=== PATIENT | female | born 1955 | race Caucasian/White ===

== ENCOUNTER → 2016-08-23 | Outpatient (CLI) | payer BC ==
[2016-08-23 16:30] LABS: CH 27.9; CHCM 33.2; HCT 36.9 % (34.0-46.0); HGB 12.2 gm/dL (11.4-16.0); MCH 27.9 pg (25.0-35.0); MCHC 33.1 g/dL (31.0-37.0); MCV 84.5 fL (80.0-100.0); Mean Platelet Volume 7.6; RBC 4.37 m/uL (3.80-5.40); RDW 13.2 % (11.5-15.5); WBC 8.6 k/uL (3.8-10.6)
[2016-08-23 16:39] LABS: Calcium 9.2 mg/dL (8.4-10.2); Potassium 3.5 mmol/L (3.5-5.1)
== END | disposition home or self-care (01) ==
LOC: LABWHC1 16:08
PROVIDERS: ATTEND Hospitalist
DX: E11.9 Type 2 diabetes mellitus without complications (principal)
CPT/HCPCS: 36415; 80048; 85027

== ENCOUNTER → 2016-09-08 | Outpatient (CLI) | payer BC ==
[2016-09-08 09:58] LABS: CHCM 32.8; HCT 39.3 % (34.0-46.0); HDW 2.56; HGB 12.8 gm/dL (11.4-16.0); MCH 27.9 pg (25.0-35.0); MCHC 32.5 g/dL (31.0-37.0); MCV 85.7 fL (80.0-100.0); Mean Platelet Volume 8.6; RBC 4.59 m/uL (3.80-5.40); RDW 13.6 % (11.5-15.5); WBC 6.7 k/uL (3.8-10.6)
[2016-09-08 10:04] LABS: Appearance,Urine Clear (Clear); Bilirubin,Urine Negative (Negative); Glucose,Urine (UA) Negative (Negative); Ketones,Urine Negative (Negative); Leukocyte Esterase,Urine Large (Negative); Mucus,Urine Rare /hpf; Nitrite,Urine Negative (Negative); Particle Count 3032; Protein,Urine Negative (Negative); RBC,Urine 2 /hpf (0-5); Squamous Epithelial Cell,Urine 5 /hpf (0-4); UA Billing (MACRO vs. MICRO) MICRO; Urobilinogen,Urine <2.0 mg/dL (<2.0); WBC,Urine 6 /hpf (0-5)
[2016-09-08 11:13] LABS: Calcium 9.3 mg/dL (8.4-10.2); Potassium 3.9 mmol/L (3.5-5.1); Uric Acid 3.1 mg/dL (3.7-7.4)
[2016-09-08 11:15] LABS: Creatinine,Urine Random 61.3 mg/dL
[2016-09-10 12:27] LABS: Mis test requested (Non-blood) Random Urine Protein
== END | disposition home or self-care (01) ==
LOC: LABWHC1 08:53
PROVIDERS: ATTEND Nurse Practitioner Family
DX: D64.9 Anemia, unspecified (principal); N39.0 Urinary tract infection, site not specified; R80.9 Proteinuria, unspecified; M10.9 Gout, unspecified; N18.4 Chronic kidney disease, stage 4 (severe)
CPT/HCPCS: 36415; 80048; 81001; 82570; 82728; 83540; 83550; 84156; 84550; 85027

== ENCOUNTER → 2016-10-30 | Outpatient (CLI) | payer BC ==
[2016-10-30 16:50] LABS: Calcium 9.6 mg/dL (8.4-10.2); Potassium 3.6 mmol/L (3.5-5.1); Total Bilirubin 0.5 mg/dL (0.2-1.3); Total Protein 7.1 g/dL (6.3-8.2)
[2016-10-30 22:12] LABS: Hemoglobin A1C 8.1 % (4.2-6.1)
== END ==
LOC: LABWHC1 16:13
PROVIDERS: ATTEND Family Medicine
DX: E11.9 Type 2 diabetes mellitus without complications (principal)
CPT/HCPCS: 36415; 80053; 82043; 83036

== ENCOUNTER → 2017-01-01 | Outpatient (CLI) | payer BC ==
[2017-01-01 15:03] LABS: CH 28.5; CHCM 33.9; HCT 39.7 % (34.0-46.0); HDW 2.57; HGB 13.5 gm/dL (11.4-16.0); MCH 28.8 pg (25.0-35.0); MCHC 34.1 g/dL (31.0-37.0); MCV 84.3 fL (80.0-100.0); Mean Platelet Volume 7.6; RDW 13.2 % (11.5-15.5); WBC 9.1 k/uL (3.8-10.6)
[2017-01-01 15:05] LABS: Appearance,Urine Cloudy (Clear); Bacteria,Urine Rare /hpf; Bilirubin,Urine Negative (Negative); Glucose,Urine (UA) Negative (Negative); Ketones,Urine Negative (Negative); Leukocyte Esterase,Urine Large (Negative); Mucus,Urine Rare /hpf; Nitrite,Urine Negative (Negative); Particle Count 2401; Protein,Urine Negative (Negative); RBC,Urine 1 /hpf (0-5); Specific Gravity,Urine 1.013 (1.001-1.035); Squamous Epithelial Cell,Urine 11 /hpf (0-4); UA Billing (MACRO vs. MICRO) MICRO; Urobilinogen,Urine <2.0 mg/dL (<2.0); WBC,Urine 8 /hpf (0-5)
[2017-01-01 15:13] LABS: Calcium 9.6 mg/dL (8.4-10.2); Potassium 4.1 mmol/L (3.5-5.1); Uric Acid 3.1 mg/dL (3.7-7.4)
[2017-01-01 15:22] LABS: % Iron Saturation 20.5 % (20-50)
[2017-01-01 15:23] LABS: Creatinine,Urine Random 103.8 mg/dL
== END | disposition home or self-care (01) ==
LOC: LABWHC1 14:47
PROVIDERS: ATTEND Nurse Practitioner Family
DX: N18.4 Chronic kidney disease, stage 4 (severe) (principal); D64.9 Anemia, unspecified; N39.0 Urinary tract infection, site not specified; M10.9 Gout, unspecified; R80.9 Proteinuria, unspecified
CPT/HCPCS: 36415; 80048; 81001; 82570; 82728; 83540; 83550; 84156; 84550; 85027

== ENCOUNTER → 2017-01-01 | Outpatient (CLI) | payer BC ==
--- NOTE | 2017-01-02 08:58 | WWHP ---
DATE OF DICTATION: 01/01/17. CHIEF COMPLAINT: The patient is here for her routine gynecologic exam and mammogram. HPI: This is a 61-year-old, G2, P2 with an LMP of 2003. The patient is without gynecologic complaints and denies any postmenopausal bleeding. PAST MEDICAL HISTORY: Type 2 diabetes, Lidia's granulomatosis, chronic hypertension, gastroesophageal reflux disease, and osteopenia. MEDICATIONS: Januvia 100 mg daily. Glyburide 4 mg b.i.d., Amlodipine besylate 5 mg daily. Iron supplement 1 daily, CellCept 500 mg b.i.d. vitamin B daily. ,Calcium with vitamin D 600 mg daily. Vitamin D3 800 units daily. ALLERGIES: No known drug allergies. PAST SURGICAL HISTORY: Colonoscopy 05/04 and this was her third one. Renal biopsy in 2014 and D&C, right ear surgery, tonsillectomy, cardiac catheterization and right arthroscopic knee surgery in the past. 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 FAMILY HISTORY: Both parents have diabetes. Father had an CT and of brain tumor. Mother had angina and renal failure, brother also has renal failure. SOCIAL HISTORY: She denies tobacco, alcohol, and drug use. She has been with her boyfriend since 2003. 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 REVIEW OF SYSTEMS: She has lost about 6 pounds over the last year. She denies respiratory, cardiac, or GI problems. PHYSICAL EXAM: Blood pressure 136/73. Height 5 feet 3 inches. Weight 234 pounds. Temperature 96.3, pulse 75. This is a well-developed, well-nourished white female who is alert and oriented x3 in no acute distress. HEENT is within normal limits. NECK: Supple without mass or thyromegaly. CHEST AND LUNGS: Clear to auscultation. HEART: Regular rate and rhythm. Breasts are without mass or discharge. Axillary exam is negative for adenopathy. BACK: Negative for CVA tenderness. ABDOMEN: Soft, nontender, without palpable masses. PELVIC EXAM: External genitalia reveals mild atrophy without lesions. Cervix and vagina reveal mild atrophy without lesions. There is no evidence of prolapse. The uterus is midposition, nongravid size and nontender. There are no palpable adnexal masses or tenderness. Rectovaginal exam is negative for mass or tenderness and is negative for occult blood. EXTREMITIES: Nontender. IMPRESSION: 1. A 61-year-old menopausal female with normal gynecologic exam. 2. History of osteopenia. 3. Multiple medical problems. PLAN: 1. Pap smear was deferred, since she had a normal one last year. 2. Self-breast examination was discussed. 3. Mammogram will be done today. 4. Osteoporosis prevention was discussed. We will plan on repeating bone density test next year. 5. She will return in one year.
--- NOTE | 2017-01-02 10:00 | MM ---
Reason for exam: screening (asymptomatic). Last mammogram was performed 1 year and 1 month ago. History: Patient is postmenopausal. Attempted Procedure of the left breast, August 28, 2004. Physical Findings: A clinical breast exam by your physician is recommended on an annual basis and results should be correlated with mammographic findings. MG Screening Mammo w CAD Bilateral CC and MLO view(s) were taken. Prior study comparison: November 29, 2015, bilateral MG screening mammo w CAD. October 12, 2014, bilateral MG screening mammo w CAD. October 06, 2013, bilateral digital screening mammo w/CAD. There are scattered fibroglandular densities. There is no discrete abnormality. ASSESSMENT: Negative, BI-RAD 1 RECOMMENDATION: Routine screening mammogram of both breasts in 1 year.
== END ==
LOC: WWCWWP 14:56
PROVIDERS: ATTEND Obstetrics & Gynecology
DX: Z12.31 Encounter for screening mammogram for malignant neoplasm of breast (principal)

== ENCOUNTER → 2017-04-13 | Outpatient (CLI) | payer BC ==
[2017-04-13 07:58] LABS: Basophils % (A) 1 %; CHCM 32.5; Eosinophils # (A) 0.2 k/uL (0-0.7); Eosinophils % (A) 3 %; HCT 38.7 % (34.0-46.0); HGB 13.1 gm/dL (11.4-16.0); Luc # (Auto) 0.33; Luc % (Auto) 4; Lymphocytes % (A) 26 %; MCH 29.1 pg (25.0-35.0); MCHC 33.7 g/dL (31.0-37.0); MCV 86.3 fL (80.0-100.0); Monocytes # (A) 0.4 k/uL (0-1.0); Monocytes % (A) 6 %; Neutrophils # (A) 4.6 k/uL (1.3-7.7); Neutrophils % (A) 61 %; RBC 4.49 m/uL (3.80-5.40); RDW 13.9 % (11.5-15.5); WBC 7.7 k/uL (3.8-10.6); WBC (Perox) 7.75
[2017-04-13 07:59] LABS: Appearance,Urine Clear (Clear); Bilirubin,Urine Negative (Negative); Glucose,Urine (UA) Negative (Negative); Ketones,Urine Negative (Negative); Leukocyte Esterase,Urine Small (Negative); Mucus,Urine Rare /hpf; Nitrite,Urine Negative (Negative); PH, Urine 5.5 (5.0-8.0); Particle Count 1973; Protein,Urine Trace (Negative); RBC,Urine 1 /hpf (0-5); Specific Gravity,Urine 1.016 (1.001-1.035); Squamous Epithelial Cell,Urine 6 /hpf (0-4); UA Billing (MACRO vs. MICRO) MICRO; Urobilinogen,Urine <2.0 mg/dL (<2.0); WBC,Urine 1 /hpf (0-5)
[2017-04-13 08:17] LABS: Calcium 9.5 mg/dL (8.4-10.2); Magnesium 1.6 mg/dL (1.6-2.3); Phosphorous 4.3 mg/dL (2.5-4.5); Potassium 3.8 mmol/L (3.5-5.1); Total Bilirubin 0.6 mg/dL (0.2-1.3); Total Protein 7.5 g/dL (6.3-8.2); Uric Acid 3.1 mg/dL (3.7-7.4)
[2017-04-13 08:25] LABS: % Iron Saturation 25.1 % (20-50)
[2017-04-13 14:47] LABS: Hemoglobin A1C 10.2 % (4.2-6.1)
== END | disposition home or self-care (01) ==
LOC: LABWHC1 07:12
PROVIDERS: ATTEND Internal Medicine Nephrology
DX: N39.0 Urinary tract infection, site not specified (principal); D64.9 Anemia, unspecified; E55.9 Vitamin D deficiency, unspecified; E21.3 Hyperparathyroidism, unspecified; M10.9 Gout, unspecified; N18.3 Chronic kidney disease, stage 3 (moderate); I10 Essential (primary) hypertension
CPT/HCPCS: 36415; 80053; 81001; 82306; 82728; 83036; 83540; 83550; 83735; 83970; 84100; 84550; 85025

== ENCOUNTER → 2017-08-21 | Outpatient (CLI) | payer BC ==
[2017-08-21 16:19] LABS: Basophils # (A) 0.1 k/uL (0-0.2); Basophils % (A) 1 %; Eosinophils # (A) 0.2 k/uL (0-0.7); Eosinophils % (A) 2 %; HCT 40.9 % (34.0-46.0); HGB 13.1 gm/dL (11.4-16.0); Lymphocytes # (A) 3.3 k/uL (1.0-4.8); Lymphocytes % (A) 35 %; MCH 27.5 pg (25.0-35.0); MCHC 31.9 g/dL (31.0-37.0); MCV 86.3 fL (80.0-100.0); Monocytes # (A) 0.4 k/uL (0-1.0); Monocytes % (A) 5 %; Neutrophils # (A) 5.1 k/uL (1.3-7.7); Neutrophils % (A) 54 %; Platelet Count 232 k/uL (150-450); RBC 4.74 m/uL (3.80-5.40); RDW 13.7 % (11.5-15.5); WBC 9.4 k/uL (3.8-10.6)
[2017-08-21 16:36] LABS: Appearance,Urine Clear (Clear); Bilirubin,Urine Negative (Negative); Blood,Urine Trace (Negative); Calcium 9.7 mg/dL (8.4-10.2); Color,Urine Yellow; Glucose,Urine (UA) Negative (Negative); Ketones,Urine Negative (Negative); Leukocyte Esterase,Urine Large (Negative); Magnesium 1.7 mg/dL (1.6-2.3); Mucus,Urine Rare /hpf; Nitrite,Urine Negative (Negative); PH, Urine 5.5 (5.0-8.0); Phosphorus 3.7 mg/dL (2.5-4.5); Potassium 4.1 mmol/L (3.5-5.1); Protein,Urine Negative (Negative); RBC,Urine 5 /hpf (0-5); Specific Gravity,Urine 1.014 (1.001-1.035); Squamous Epithelial Cell,Urine 4 /hpf (0-4); Uric Acid 4.3 mg/dL (3.7-7.4); Urobilinogen,Urine <2.0 mg/dL (<2.0); WBC,Urine 5 /hpf (0-5)
[2017-08-22 01:10] LABS: Iron Saturation 22.78 (12.00-45.00)
[2017-08-22 01:19] LABS: Vitamin D 25 Hydroxy 34.7 ng/mL (30.0-100.0)
== END | disposition home or self-care (01) ==
LOC: LABWHC1 16:03
PROVIDERS: ATTEND Nurse Practitioner Family
DX: N18.3 Chronic kidney disease, stage 3 (moderate) (principal); D64.9 Anemia, unspecified; E55.9 Vitamin D deficiency, unspecified; M10.9 Gout, unspecified; E21.3 Hyperparathyroidism, unspecified; N39.0 Urinary tract infection, site not specified
CPT/HCPCS: 36415; 80048; 81001; 82306; 82728; 83540; 83550; 83735; 83970; 84100; 84550; 85025

== ENCOUNTER → 2017-09-17 | Outpatient (CLI) | payer BC ==
[2017-09-17 08:55] LABS: Appearance,Urine Cloudy (Clear); Bacteria,Urine Rare /hpf; Bilirubin,Urine Negative (Negative); Blood,Urine Trace (Negative); Budding Yeast,Urine Occasional /hpf; Color,Urine Yellow; Glucose,Urine (UA) Negative (Negative); Ketones,Urine Negative (Negative); Leukocyte Esterase,Urine Large (Negative); Mucus,Urine Rare /hpf; Nitrite,Urine Negative (Negative); PH, Urine 5.5 (5.0-8.0); Protein,Urine Negative (Negative); RBC,Urine 16 /hpf (0-5); Specific Gravity,Urine 1.014 (1.001-1.035); Squamous Epithelial Cell,Urine 19 /hpf (0-4); Urobilinogen,Urine <2.0 mg/dL (<2.0); WBC,Urine 17 /hpf (0-5)
[2017-09-17 09:31] LABS: Calcium 9.8 mg/dL (8.4-10.2); Potassium 4.6 mmol/L (3.5-5.1)
== END | disposition home or self-care (01) ==
LOC: LABWHC1 09-11 16:05
PROVIDERS: ATTEND Nurse Practitioner Family
DX: E11.65 Type 2 diabetes mellitus with hyperglycemia (principal); N18.3 Chronic kidney disease, stage 3 (moderate)
CPT/HCPCS: 36415; 80048; 80061; 81001

== ENCOUNTER → 2017-10-19 | Outpatient (CLI) | payer BC ==
[2017-10-19 09:17] LABS: Appearance,Urine Clear (Clear); Bilirubin,Urine Negative (Negative); Blood,Urine Negative (Negative); Color,Urine Light Yellow; Glucose,Urine (UA) Negative (Negative); Ketones,Urine Negative (Negative); Leukocyte Esterase,Urine Negative (Negative); PH, Urine 5.5 (5.0-8.0); Protein,Urine Negative (Negative); Specific Gravity,Urine 1.009 (1.001-1.035); Urobilinogen,Urine <2.0 mg/dL (<2.0)
[2017-10-19 09:20] LABS: Basophils % (A) 1 %; Eosinophils # (A) 0.1 k/uL (0-0.7); Eosinophils % (A) 2 %; Lymphocytes # (A) 1.4 k/uL (1.0-4.8); Lymphocytes % (A) 21 %; MCH 27.6 pg (25.0-35.0); MCHC 31.8 g/dL (31.0-37.0); MCV 86.7 fL (80.0-100.0); Mean Platelet Volume 8.1; Monocytes # (A) 0.4 k/uL (0-1.0); Monocytes % (A) 5 %; Neutrophils # (A) 4.7 k/uL (1.3-7.7); Neutrophils % (A) 69 %; Platelet Count 229 k/uL (150-450); RBC 4.73 m/uL (3.80-5.40); RDW 13.8 % (11.5-15.5); WBC 6.8 k/uL (3.8-10.6)
[2017-10-19 09:35] LABS: Anion Gap 13 mmol/L; Blood Urea Nitrogen 18 mg/dL (7-17); Calcium 9.3 mg/dL (8.4-10.2); Carbon Dioxide 28 mmol/L (22-30); Chloride 100 mmol/L (98-107); Glucose 148 mg/dL (74-99); Phosphorus 3.4 mg/dL (2.5-4.5); Potassium 4.2 mmol/L (3.5-5.1); Sodium 141 mmol/L (137-145); Uric Acid 2.5 mg/dL (3.7-7.4)
[2017-10-19 17:21] LABS: Iron Saturation 22.13 (12.00-45.00)
[2017-10-19 17:29] LABS: Parathyroid Hormone Intact 49.1 pg/mL (14.0-72.0)
== END | disposition home or self-care (01) ==
LOC: LABWHC1 08:03
PROVIDERS: ATTEND Nurse Practitioner Family
DX: N39.0 Urinary tract infection, site not specified (principal); N18.3 Chronic kidney disease, stage 3 (moderate); D63.1 Anemia in chronic kidney disease; E55.9 Vitamin D deficiency, unspecified; E21.3 Hyperparathyroidism, unspecified; M10.9 Gout, unspecified
CPT/HCPCS: 36415; 80048; 81003; 82306; 82728; 83540; 83550; 83735; 83970; 84100; 84550; 85025

== ENCOUNTER → 2018-03-11 | Outpatient (CLI) | payer BC ==
[2018-03-11 16:16] VITALS: BP 128/77; PULSE 64; TEMP 97.9; BMI 39.8
--- NOTE | 2018-03-11 16:51 | P.HPOB ---
History of Present Illness H&P Date: 03/11/18 Chief Complaint: The patient is here for her routine gynecologic exam and mammogram. She has lost 9 pounds over the last year. She denies respiratory, cardiac and G.I. problems. Review of Systems This is a 62-year-old with an LMP of 2003. The patient is without gynecologic complaints and denies any postmenopausal bleeding. She states she and her boyfriend of 14 years may get in the upcoming year. Past Medical History Past Medical History: Diabetes Mellitus (Type II diabetes), GERD/Reflux, Hypertension, Renal Disease Additional Past Medical History / Comment(s): WEGENERS GRANULOMATOSIS, VARICOSE VEINS. Osteopenia. 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 History of Any Multi-Drug Resistant Organisms: None Reported Past Surgical History: Ear Surgery, Heart Catheterization, Orthopedic Surgery, Tonsillectomy Additional Past Surgical History / Comment(s): d+c, colonoscopy 2016 (3rd), bronchoscopy, rt mastoid , Right Knee arthroscopy (06/2015). Past Anesthesia/Blood Transfusion Reactions: Postoperative Nausea & Vomiting ( PONV) Additional Past Anesthesia/Blood Transfusion Reaction / Comment(s): POST-OP HEADACHE X1. Past Psychological History: No Psychological Hx Reported Smoking Status: Never smoker Past Alcohol Use History: None Reported Additional Past Alcohol Use History / Comment(s): started smoking at age 17 quit by age 31. smoked 1ppd. Past Drug Use History: None Reported Additional History: She has been with her boyfriend since 2003. She works at [employer]. - Past Family History Father Family Medical History: Cancer (Brain tumor), Congestive Heart Failure (CHF), Diabetes Mellitus, Myocardial Infarction ([place]) Additional Family Medical History / Comment(s): brain tumor Mother Family Medical History: Congestive Heart Failure (CHF), Coronary Artery Disease (CAD), Diabetes Mellitus, Deep Vein Thrombosis (DVT), Renal Disease Brother(s) Family Medical History: Renal Disease Medications and Allergies Home Medications Medication Instructions Recorded Confirmed Type Calcium Carbonate/Vitamin D3 1 each PO DAILY 09/20/14 09/17/17 History [Calcium 600-Vit D3 400 Tablet] amLODIPine BESYLATE [Norvasc] 5 mg PO DAILY #30 tab 09/28/14 03/11/18 Rx Hydrochlorothiazide [Hydrodiuril] 12.5 tab PO DAILY 10/20/14 03/11/18 History Mycophenolate Mofetil [Cellcept] 1,000 mg PO BID 05/03/16 03/11/18 History Thiamine [Vitamin B-1] 100 mg PO DAILY 05/03/16 03/11/18 History Liraglutide [Victoza 2-Ron] 0.6 mg SQ DAILY 09/17/17 03/11/18 History Atorvastatin [Lipitor] mg PO DAILY 03/11/18 History Losartan [Cozaar] mg PO DAILY 03/11/18 History Repaglinide mg PO TID 03/11/18 History Allergies Allergy/AdvReac Type Severity Reaction Status Date / Time No Known Allergies Allergy Verified 09/17/17 10:30 Exam Vital Signs Temp Pulse BP 03/11/18 16:11 97.9 F 64 128/77 Intake and Output 03/11/18 03/11/18 03/11/18 06:59 14:59 22:59 Other: Weight 102.058 kg Height 5'3", BMI 39.9. This is a well-developed well-nourished heavyset white female who is alert and oriented times 3 in no acute distress. HEENT: Within normal limits. NECK: Supple without mass or thyromegaly. CHEST AND LUNGS: Clear to auscultation. HEART: Regular rate and rhythm. BREASTS: Are without mass or discharge. AXILLARY EXAM: Negative for adenopathy. BACK: Negative for CVA tenderness. ABDOMEN: Soft, obese, nontender, without palpable masses. PELVIC EXAM: Normal external genitalia with mild atrophy. Cervix and vagina appear normal with mild atrophy. There is no unusual discharge. There is no evidence of prolapse. The uterus is midposition, nongravid size and nontender. There are no palpable adnexal masses or tenderness. RECTAL EXAM: rectovaginal exam is negative for mass or tenderness and is negative for occult blood. EXTREMITIES: Nontender. IMPRESSION: 1. 62-year-old menopausal female with normal gynecologic exam. 2. History of osteopenia. 3. Multiple medical problems. PLAN: 1. Pap smear was performed. 2. Self breast awareness was discussed. 3. Screening mammogram will be done today. 4. Osteoporosis prevention was discussed. She is due for a bone density test and an order slip was given to the patient for this. 5. She will return in one year.
--- NOTE | 2018-03-13 09:55 | MM ---
Reason for exam: screening (asymptomatic). Last mammogram was performed 1 year and 2 months ago. History: Patient is postmenopausal. Attempted Procedure of the left breast, August 28, 2004. Physical Findings: A clinical breast exam by your physician is recommended on an annual basis and results should be correlated with mammographic findings. MG Screening Mammo w CAD Bilateral CC and MLO view(s) were taken. Prior study comparison: January 01, 2017, bilateral MG screening mammo w CAD. November 29, 2015, bilateral MG screening mammo w CAD. There are scattered fibroglandular densities. No significant changes when compared with prior studies. ASSESSMENT: Negative, BI-RAD 1 RECOMMENDATION: Routine screening mammogram of both breasts in 1 year.
== END | disposition home or self-care (01) ==
LOC: WWCWWP 15:52
PROVIDERS: ATTEND Obstetrics & Gynecology
DX: Z12.31 Encounter for screening mammogram for malignant neoplasm of breast (principal)
CPT/HCPCS: 77067

== ENCOUNTER → 2018-05-03 | Outpatient (CLI) | payer BC ==
[2018-05-03 09:12] LABS: Basophils % (A) 1 %; Eosinophils # (A) 0.1 k/uL (0-0.7); Eosinophils % (A) 2 %; HCT 40.9 % (34.0-46.0); HGB 12.9 gm/dL (11.4-16.0); Lymphocytes # (A) 1.2 k/uL (1.0-4.8); Lymphocytes % (A) 20 %; MCH 27.8 pg (25.0-35.0); MCHC 31.5 g/dL (31.0-37.0); MCV 88.4 fL (80.0-100.0); Mean Platelet Volume 7.4; Monocytes # (A) 0.5 k/uL (0-1.0); Monocytes % (A) 9 %; Neutrophils % (A) 65 %; Platelet Count 222 k/uL (150-450); RBC 4.63 m/uL (3.80-5.40); RDW 13.4 % (11.5-15.5); WBC 6.1 k/uL (3.8-10.6)
[2018-05-03 09:15] LABS: Calcium 9.3 mg/dL (8.4-10.2); Magnesium 1.9 mg/dL (1.6-2.3); Phosphorus 3.4 mg/dL (2.5-4.5); Potassium 4.3 mmol/L (3.5-5.1); Uric Acid 2.8 mg/dL (3.7-7.4)
[2018-05-03 11:31] LABS: Appearance,Urine Clear (Clear); Bacteria,Urine Rare /hpf; Bilirubin,Urine Negative (Negative); Blood,Urine Negative (Negative); Color,Urine Yellow; Glucose,Urine (UA) Negative (Negative); Ketones,Urine Negative (Negative); Leukocyte Esterase,Urine Trace (Negative); Mucus,Urine Rare /hpf; Nitrite,Urine Negative (Negative); PH, Urine 5.5 (5.0-8.0); Protein,Urine Negative (Negative); RBC,Urine <1 /hpf (0-5); Specific Gravity,Urine 1.017 (1.001-1.035); Squamous Epithelial Cell,Urine 1 /hpf (0-4); Urobilinogen,Urine <2.0 mg/dL (<2.0); WBC,Urine 2 /hpf (0-5)
[2018-05-03 17:15] LABS: Iron Saturation 28.69 (12.00-45.00)
[2018-05-03 17:19] LABS: Parathyroid Hormone Intact 45.1 pg/mL (14.0-72.0)
[2018-05-03 17:23] LABS: Vitamin D 25 Hydroxy 31.6 ng/mL (30.0-100.0)
== END | disposition home or self-care (01) ==
LOC: LABWHC1 08:15
PROVIDERS: ATTEND Internal Medicine Nephrology
DX: N18.3 Chronic kidney disease, stage 3 (moderate) (principal); D63.1 Anemia in chronic kidney disease; E55.9 Vitamin D deficiency, unspecified; N25.81 Secondary hyperparathyroidism of renal origin; M10.9 Gout, unspecified; N39.0 Urinary tract infection, site not specified
CPT/HCPCS: 36415; 80048; 81001; 82306; 82728; 83540; 83550; 83735; 83970; 84100; 84550; 85025

== ENCOUNTER → 2018-10-15 | Outpatient (CLI) | payer BC ==
[~2018-10-15] MED LIST: ACETAMINOPHEN TAB 500 MG TAB PO ONE; RITUXIMAB IV NR; SODIUM CHLORIDE 0.9% 500 ML 500 ML in EMPTY BAG 1 BAG IV PRN; SODIUM CHLORIDE 0.9% IV NR; diphenhydrAMINE 50 MG/ML 1 ML VIAL IVP ONE; methylPREDNISolone SOD SUCCI 125 MG/2 ML VIAL IVP ONE
[2018-10-15 09:03] VITALS: RESP 16; TEMP 97.8
[2018-10-15 11:40] VITALS: BP 116/68; PULSE 64
== END | disposition home or self-care (01) ==
LOC: PROCWHC3 08:41
PROVIDERS: ATTEND Internal Medicine Rheumatology
DX: M31.30 Wegener's granulomatosis without renal involvement (principal)
CPT/HCPCS: 96375; 96413; 96415; J1200; J2930; J9312

== ENCOUNTER → 2018-11-01 | Outpatient (CLI) | payer BC ==
[2018-11-01 09:31] LABS: Basophils % (A) 1 %; Eosinophils # (A) 0.1 k/uL (0-0.7); Eosinophils % (A) 3 %; HCT 38.3 % (34.0-46.0); HGB 12.2 gm/dL (11.4-16.0); Lymphocytes # (A) 1.1 k/uL (1.0-4.8); Lymphocytes % (A) 22 %; MCH 27.7 pg (25.0-35.0); MCHC 31.9 g/dL (31.0-37.0); MCV 86.8 fL (80.0-100.0); Mean Platelet Volume 7.5; Monocytes # (A) 0.4 k/uL (0-1.0); Monocytes % (A) 8 %; Neutrophils # (A) 3.1 k/uL (1.3-7.7); Neutrophils % (A) 63 %; Platelet Count 242 k/uL (150-450); RBC 4.42 m/uL (3.80-5.40); RDW 13.2 % (11.5-15.5); WBC 4.9 k/uL (3.8-10.6)
[2018-11-01 09:42] LABS: Appearance,Urine Clear (Clear); Bilirubin,Urine Negative (Negative); Blood,Urine Negative (Negative); Color,Urine Yellow; Glucose,Urine (UA) Negative (Negative); Ketones,Urine Negative (Negative); Leukocyte Esterase,Urine Negative (Negative); Nitrite,Urine Negative (Negative); PH, Urine 5.5 (5.0-8.0); Protein,Urine Negative (Negative); Specific Gravity,Urine 1.016 (1.001-1.035); Urobilinogen,Urine <2.0 mg/dL (<2.0)
[2018-11-01 16:31] LABS: Iron Saturation 27.54 (12.00-45.00)
[2018-11-01 16:36] LABS: Albumin 4.2 g/dL (3.80-4.90); Albumin/Globulin Ratio 1.91 (1.60-3.17); Anion Gap 7.2 mmol/L (4.00-12.00); Calcium 9.1 mg/dL (8.7-10.3); Carbon Dioxide 28.8 mmol/L (21.6-31.8); Globulin 2.2 g/dL (1.6-3.3); Magnesium 1.6 mg/dL (1.5-2.4); Phosphorus 2.6 mg/dL (2.4-5.1); Potassium 3.6 mmol/L (3.5-5.5); Total Bilirubin 0.6 mg/dL (0.3-1.2); Total Protein 6.4 g/dL (6.2-8.2)
[2018-11-01 16:40] LABS: Vitamin D 25 Hydroxy 43.4 ng/mL (30.0-100.0)
[2018-11-03 09:58] LABS: Total Protein,Urine Random 13.2 mg/dL (0.0-13.5)
== END | disposition home or self-care (01) ==
LOC: LABWHC1 08:49
PROVIDERS: ATTEND Physician Assistant Medical
DX: N39.0 Urinary tract infection, site not specified (principal); E83.39 Other disorders of phosphorus metabolism; N25.81 Secondary hyperparathyroidism of renal origin; I12.9 Hypertensive chronic kidney disease with stage 1 through stage 4 chronic kidney disease, or unspecified chronic kidney disease; D63.1 Anemia in chronic kidney disease; M10.9 Gout, unspecified
CPT/HCPCS: 36415; 80053; 80061; 81003; 82306; 82550; 82570; 82728; 83540; 83550; 83735; 83970; 84100; 84156; 84443; 84550; 85025; 86255

== ENCOUNTER → 2019-05-08 | Outpatient (CLI) | payer BC ==
[2019-05-08 10:12] LABS: HGB 12.4 gm/dL (11.4-16.0); MCH 27.8 pg (25.0-35.0); MCHC 33.4 g/dL (31.0-37.0); MCV 83.4 fL (80.0-100.0); Mean Platelet Volume 8.3; Platelet Count 229 k/uL (150-450); RBC 4.44 m/uL (3.80-5.40); RDW 14.7 % (11.5-15.5); WBC 5.4 k/uL (3.8-10.6)
[2019-05-08 10:13] LABS: Appearance,Urine Clear (Clear); Bilirubin,Urine Negative (Negative); Blood,Urine Negative (Negative); Color,Urine Light Yellow; Glucose,Urine (UA) Negative (Negative); Ketones,Urine Negative (Negative); Leukocyte Esterase,Urine Trace (Negative); Mucus,Urine Rare /hpf; Nitrite,Urine Negative (Negative); Protein,Urine Negative (Negative); RBC,Urine 1 /hpf (0-5); Specific Gravity,Urine 1.014 (1.001-1.035); Squamous Epithelial Cell,Urine 2 /hpf (0-4); Urobilinogen,Urine <2.0 mg/dL (<2.0); WBC,Urine 1 /hpf (0-5)
[2019-05-08 11:26] LABS: Eosinophils # (M) 0.11 k/uL (0-0.7); Lymphocytes # (M) 1.35 k/uL (1.0-4.8); Monocytes # (M) 0.59 k/uL (0-1.0); Neutrophils % (M) 62 %; Nucleated Red Blood Cells 0 /100 WBC (0-0); Total Cells Counted 100
[2019-05-08 17:05] LABS: African American GFR (CKD) 56.1 (60.0-200.0); Albumin/Globulin Ratio 2.11 (1.60-3.17); Anion Gap 7.9 mmol/L (4.00-12.00); BUN/Creat Ratio 15.83 Ratio (12.00-20.00); Calcium 9.4 mg/dL (8.7-10.3); Carbon Dioxide 29.1 mmol/L (21.6-31.8); Globulin 1.9 g/dL (1.6-3.3); Magnesium 1.7 mg/dL (1.5-2.4); Phosphorus 3.4 mg/dL (2.4-5.1); Potassium 4.2 mmol/L (3.5-5.5); Total Bilirubin 0.5 mg/dL (0.3-1.2); Total Protein 5.9 g/dL (6.2-8.2)
[2019-05-08 17:09] LABS: Iron Saturation 31.62 (12.00-45.00)
[2019-05-08 17:17] LABS: Vitamin D 25 Hydroxy 35.7 ng/mL (30.0-100.0)
[2019-05-08 18:01] LABS: Creatinine,Urine Random 69.7 mg/dL
[2019-05-08 18:04] LABS: Total Protein,Urine Random 6.8 mg/dL (0.0-13.5)
[2019-05-12 13:53] LABS: C-ANCA <1:20 Titer (<1:20)
== END | disposition home or self-care (01) ==
LOC: LABWHC1 08:43
PROVIDERS: ATTEND Internal Medicine Endocrinology, Diabetes & Metabolism
DX: M10.9 Gout, unspecified (principal); I77.6 Arteritis, unspecified; R80.9 Proteinuria, unspecified; E55.0 Rickets, active; N25.81 Secondary hyperparathyroidism of renal origin; N39.0 Urinary tract infection, site not specified; D63.1 Anemia in chronic kidney disease; N18.3 Chronic kidney disease, stage 3 (moderate); E11.65 Type 2 diabetes mellitus with hyperglycemia; M31.30 Wegener's granulomatosis without renal involvement
CPT/HCPCS: 36415; 80053; 81001; 82043; 82306; 82570; 82728; 83540; 83550; 83735; 83970; 84100; 84156; 84550; 85025; 86255

== ENCOUNTER → 2019-05-26 | Outpatient (CLI) | payer BC ==
[2019-05-26 16:23] VITALS: BP 131/78; PULSE 69; RESP 16; TEMP 98.3; BMI 40.7
--- NOTE | 2019-05-26 16:58 | P.HPOB ---
History of Present Illness H&P Date: 05/26/19 Chief Complaint: The patient is here for her routine gynecologic exam and ma mmogram. This is a 63-year-old with an LMP of 2003. The patient is without gynecologic complaints. Review of Systems The patient has gained 5 pounds over the last year. She denies respiratory, cardiac, or G.I. problems. Past Medical History Past Medical History: Diabetes Mellitus, GERD/Reflux, Hypertension, Renal Disease Additional Past Medical History / Comment(s): Type 2 diabetes. WEGENERS GRANULOMATOSIS, VARICOSE VEINS. Osteopenia. 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 History of Any Multi-Drug Resistant Organisms: None Reported Past Surgical History: Ear Surgery, Heart Catheterization, Orthopedic Surgery, Tonsillectomy Additional Past Surgical History / Comment(s): d+c, colonoscopy 2016 (), bronchoscopy, rt mastoid , Right Knee arthroscopy (06/2015). Past Anesthesia/Blood Transfusion Reactions: Postoperative Nausea & Vomiting (PONV) Additional Past Anesthesia/Blood Transfusion Reaction / Comment(s): POST-OP HEADACHE X1. Past Psychological History: No Psychological Hx Reported Smoking Status: Former smoker Past Alcohol Use History: None Reported Additional Past Alcohol Use History / Comment(s): started smoking at age 17 quit by age 31. smoked 1ppd. Past Drug Use History: None Reported Additional History: She has been since 2019 and this is her second marriage, and has been with this partner since 2003. She works at [employer]. - Past Family History Brother(s) Family Medical History: Renal Disease Father Family Medical History: Cancer, Congestive Heart Failure (CHF), Diabetes Mellitus, Myocardial Infarction ([place]) Additional Family Medical History / Comment(s): brain tumor Mother Family Medical History: Congestive Heart Failure (CHF), Coronary Artery Disease (CAD), Diabetes Mellitus, Deep Vein Thrombosis (DVT), Renal Disease Medications and Allergies Home Medications Medication Instructions Recorded Confirmed Type Calcium Carbonate/Vitamin D3 1 each PO DAILY 09/20/14 05/26/19 History [Calcium 600-Vit D3 400 Tablet] amLODIPine BESYLATE [Norvasc] 5 mg PO DAILY #30 tab 09/28/14 05/26/19 Rx Hydrochlorothiazide [Hydrodiuril] 12.5 tab PO DAILY 10/20/14 05/26/19 History Mycophenolate Mofetil [Cellcept] 1,000 mg PO BID 05/03/16 05/26/19 History Thiamine [Vitamin B-1] 100 mg PO DAILY 05/03/16 05/26/19 History Liraglutide [Victoza 2-Ron] 0.6 mg SQ DAILY 09/17/17 05/26/19 History Atorvastatin [Lipitor] 10 mg PO DAILY 03/11/18 05/26/19 History Losartan [Cozaar] 25 mg PO DAILY 03/11/18 05/26/19 History Repaglinide 1 mg PO TID 03/11/18 05/26/19 History Allergies Allergy/AdvReac Type Severity Reaction Status Date / Time No Known Allergies Allergy Verified 05/26/19 15:58 Exam Vital Signs Temp Pulse Resp BP Pulse Ox 05/26/19 16:11 98.3 F 69 16 131/78 97 Intake and Output 05/26/19 05/26/19 05/26/19 06:59 14:59 22:59 Other: Weight 104.326 kg Height 5 feet 3 inches, weight 230 pounds, BMI 40.7. This is a well-developed well-nourished heavyset white female who is alert and oriented times 3 in no acute distress. HEENT: Within normal limits. NECK: Supple without mass or thyromegaly. CHEST AND LUNGS: Clear to auscultation. HEART: Regular rate and rhythm. BREASTS: Are without mass or discharge. AXILLARY EXAM: Negative for adenopathy. BACK: Negative for CVA tenderness. ABDOMEN: Soft, obese, nontender, without palpable masses. PELVIC EXAM: Normal external genitalia with mild atrophy. Cervix and vagina appear normal with mild atrophy. There is no unusual discharge. There is no evidence of prolapse. The uterus is midposition, nongravid size and nontender. There are no palpable adnexal masses or tenderness. Bimanual examination is somewhat limited secondary to her size. RECTAL EXAM: Rectovaginal exam is negative for mass or tenderness and is negative for occult blood. EXTREMITIES: Nontender. IMPRESSION: 1. 63-year-old menopausal female with normal gynecologic exam. 2. History of osteopenia. 3. Multiple medical problems. PLAN: 1. Pap smear was deferred since she had a normal one on 03/11/2018. 2. Self breast awareness was discussed with the patient. 3. Screening mammogram will be done today. 4. Osteoporosis prevention was discussed. I have stressed the importance of adequate calcium, vitamin D and regular exercise. Recommended amounts of calcium and vitamin D were also discussed. She is overdue for a bone density test. I have given her an order slip for this. 5. She was advised to return in one year for her annual well woman exam.
--- NOTE | 2019-05-29 10:01 | MM ---
Reason for exam: screening (asymptomatic). Last mammogram was performed 1 year and 2 months ago. History: Patient is postmenopausal. Attempted Procedure of the left breast, August 28, 2004. Physical Findings: A clinical breast exam by your physician is recommended on an annual basis and results should be correlated with mammographic findings. MG Screening Mammo w CAD Bilateral CC and MLO view(s) were taken. Prior study comparison: March 11, 2018, bilateral MG screening mammo w CAD. January 01, 2017, bilateral MG screening mammo w CAD. There are scattered fibroglandular densities. No significant changes when compared with prior studies. ASSESSMENT: Negative, BI-RAD 1 RECOMMENDATION: Routine screening mammogram of both breasts in 1 year.
== END ==
LOC: WWCWWP 15:44
PROVIDERS: ATTEND Obstetrics & Gynecology
DX: Z12.31 Encounter for screening mammogram for malignant neoplasm of breast (principal)
CPT/HCPCS: 77067

== ENCOUNTER → 2019-10-21 | Outpatient (CLI) | payer BC ==
[~2019-10-21] MED LIST changes: +ACETAMINOPHEN TAB 500 MG TAB PO NR; -ACETAMINOPHEN TAB 500 MG TAB PO ONE; +diphenhydrAMINE 50 MG/ML 1 ML VIAL IVP NR; -diphenhydrAMINE 50 MG/ML 1 ML VIAL IVP ONE; +methylPREDNISolone SOD SUCCI 125 MG/2 ML VIAL IV NR; -methylPREDNISolone SOD SUCCI 125 MG/2 ML VIAL IVP ONE
[2019-10-21 08:33] VITALS: RESP 16; TEMP 97.7
[2019-10-21 11:01] VITALS: BP 126/72; PULSE 62
== END | disposition home or self-care (01) ==
LOC: PROCWHC3 08:16
PROVIDERS: ATTEND Internal Medicine Rheumatology
DX: M31.30 Wegener's granulomatosis without renal involvement (principal)
CPT/HCPCS: 96375; 96413; 96415; J1200; J2930; J9312

== ENCOUNTER → 2019-12-14 | Outpatient (CLI) | payer BC ==
[2019-12-14 10:09] LABS: Appearance,Urine Clear (Clear); Bacteria,Urine Rare /hpf; Bilirubin,Urine Negative (Negative); Blood,Urine Negative (Negative); Color,Urine Yellow; Glucose,Urine (UA) Negative (Negative); Ketones,Urine Negative (Negative); Leukocyte Esterase,Urine Small (Negative); Mucus,Urine Rare /hpf; Nitrite,Urine Negative (Negative); PH, Urine 5.5 (5.0-8.0); Protein,Urine Negative (Negative); RBC,Urine 1 /hpf (0-5); Specific Gravity,Urine 1.022 (1.001-1.035); Squamous Epithelial Cell,Urine 5 /hpf (0-4); Urobilinogen,Urine <2.0 mg/dL (<2.0); WBC,Urine 4 /hpf (0-5)
[2019-12-14 10:11] LABS: Protein/Creatinine Ratio,Urine 0.078
[2019-12-14 10:17] LABS: Basophils % (A) 1 %; Eosinophils # (A) 0.1 k/uL (0-0.7); Eosinophils % (A) 2 %; HGB 13.6 gm/dL (11.4-16.0); Lymphocytes # (A) 1.6 k/uL (1.0-4.8); Lymphocytes % (A) 22 %; MCH 29.2 pg (25.0-35.0); MCHC 33.9 g/dL (31.0-37.0); MCV 85.9 fL (80.0-100.0); Mean Platelet Volume 8.9; Monocytes # (A) 0.5 k/uL (0-1.0); Monocytes % (A) 8 %; Neutrophils # (A) 4.6 k/uL (1.3-7.7); Neutrophils % (A) 64 %; Platelet Count 224 k/uL (150-450); RBC 4.66 m/uL (3.80-5.40); RDW 13.2 % (11.5-15.5); WBC 7.1 k/uL (3.8-10.6)
[2019-12-14 15:47] LABS: African American GFR (CKD) 61.9 (60.0-200.0); Anion Gap 9.9 mmol/L (4.00-12.00); BUN/Creat Ratio 22.73 Ratio (12.00-20.00); Calcium 9.4 mg/dL (8.7-10.3); Carbon Dioxide 24.1 mmol/L (21.6-31.8); Non-African American GFR(CKD) 53.4 (60.0-200.0); Potassium 3.7 mmol/L (3.5-5.5)
[2019-12-14 15:48] LABS: % Iron Saturation 23.95 (12.00-45.00)
[2019-12-14 15:54] LABS: Ferritin 147.6 ng/mL (10.0-291.0)
[2019-12-15 14:16] LABS: C-ANCA <1:20 Titer (<1:20)
== END | disposition home or self-care (01) ==
LOC: LABWHC1 08:50
PROVIDERS: ATTEND Nurse Practitioner Family
DX: N18.3 Chronic kidney disease, stage 3 (moderate) (principal); D63.1 Anemia in chronic kidney disease; N39.0 Urinary tract infection, site not specified; I77.6 Arteritis, unspecified; M31.30 Wegener's granulomatosis without renal involvement; R80.9 Proteinuria, unspecified
CPT/HCPCS: 36415; 80048; 81001; 82570; 82728; 83540; 83550; 84156; 85025; 86255

== ENCOUNTER → 2020-04-27 | Outpatient (CLI) | payer BC ==
[~2020-04-27] MED LIST changes: -RITUXIMAB IV NR; +RITUXIMAB PVVR IV NR
[2020-04-27 08:30] VITALS: RESP 16; TEMP 98.2
[2020-04-27 10:17] VITALS: BP 147/63; PULSE 74
== END | disposition home or self-care (01) ==
LOC: PROCWHC3 08:01
PROVIDERS: ATTEND Internal Medicine Rheumatology
DX: M31.30 Wegener's granulomatosis without renal involvement (principal)
CPT/HCPCS: 96375; 96413; 96415; J1200; J2930; Q5119

== ENCOUNTER → 2020-06-24 | Outpatient (CLI) | payer BC ==
[2020-06-24 08:55] LABS: Appearance,Urine Clear (Clear); Bilirubin,Urine Negative (Negative); Blood,Urine Negative (Negative); Color,Urine Light Yellow; Glucose,Urine (UA) 4+ (Negative); Ketones,Urine Negative (Negative); Leukocyte Esterase,Urine Negative (Negative); Nitrite,Urine Negative (Negative); PH, Urine 5.5 (5.0-8.0); Protein,Urine Negative (Negative); Specific Gravity,Urine 1.018 (1.001-1.035); Urobilinogen,Urine <2.0 mg/dL (<2.0)
[2020-06-24 09:35] LABS: Basophils # (A) 0.1 k/uL (0-0.2); Basophils % (A) 1 %; Eosinophils # (A) 0.3 k/uL (0-0.7); Eosinophils % (A) 5 %; HCT 45.7 % (34.0-46.0); HGB 14.7 gm/dL (11.4-16.0); Lymphocytes # (A) 1.4 k/uL (1.0-4.8); Lymphocytes % (A) 22 %; MCHC 32.2 g/dL (31.0-37.0); MCV 86.8 fL (80.0-100.0); Mean Platelet Volume 9.2; Monocytes # (A) 0.5 k/uL (0-1.0); Monocytes % (A) 8 %; Neutrophils # (A) 3.9 k/uL (1.3-7.7); Neutrophils % (A) 60 %; Platelet Count 214 k/uL (150-450); RBC 5.27 m/uL (3.80-5.40); RDW 13.7 % (11.5-15.5); WBC 6.4 k/uL (3.8-10.6)
[2020-06-24 11:37] LABS: Creatinine,Urine Random 71.5 mg/dL; Protein/Creatinine Ratio,Urine 0.154
[2020-06-24 14:43] LABS: % Iron Saturation 19.32 (12.00-45.00); African American GFR (CKD) 46.2 (60.0-200.0); Albumin 4.4 g/dL (3.80-4.90); Anion Gap 7.6 mmol/L (4.00-12.00); BUN/Creat Ratio 16.43 Ratio (12.00-20.00); Calcium 9.8 mg/dL (8.7-10.3); Carbon Dioxide 29.4 mmol/L (21.6-31.8); Non-African American GFR(CKD) 39.9 (60.0-200.0); Phosphorus 3.9 mg/dL (2.4-5.1); Potassium 3.9 mmol/L (3.5-5.5); Uric Acid 3.8 mg/dL (2.9-7.7)
[2020-06-24 14:50] LABS: Ferritin 80.9 ng/mL (10.0-291.0)
== END | disposition home or self-care (01) ==
LOC: LABWHC1 08:00
PROVIDERS: ATTEND Internal Medicine Nephrology
DX: N18.30 Chronic kidney disease, stage 3 unspecified (principal); M31.30 Wegener's granulomatosis without renal involvement
CPT/HCPCS: 36415; 80048; 81003; 82040; 82306; 82570; 82728; 83540; 83550; 83735; 83970; 84100; 84156; 84550; 85025

== ENCOUNTER → 2020-07-26 | Outpatient (CLI) | payer BC ==
[2020-07-26 14:07] VITALS: BP 110/72; PULSE 71; RESP 18; TEMP 98.1
--- NOTE | 2020-07-26 14:59 | P.HPOB ---
History of Present Illness H&P Date: 07/26/20 Chief Complaint: The patient is here for her routine gynecologic exam and ma mmogram. This is a 65-year-old with an LMP of 2004. The patient is without gynecologic complaints and denies any postmenopausal bleeding. Review of Systems The patient's weight has been stable over the last year. She denies respiratory, cardiac, or G.I. problems. Past Medical History Past Medical History: Diabetes Mellitus, GERD/Reflux, Hypertension, Renal Disease Additional Past Medical History / Comment(s): Type 2 diabetes. WEGENERS GRANULOMATOSIS, VARICOSE VEINS. Osteopenia. 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 History of Any Multi-Drug Resistant Organisms: None Reported Past Surgical History: Ear Surgery, Heart Catheterization, Joint Replacement, Orthopedic Surgery, Tonsillectomy Additional Past Surgical History / Comment(s): d+c, colonoscopy 2015 (next after 5yr), bronchoscopy, rt mastoid , Right Knee arthroscopy (06/2015). Total Left Knee Replacement - January 2020 Past Anesthesia/Blood Transfusion Reactions: Postoperative Nausea & Vomiting (PONV) Additional Past Anesthesia/Blood Transfusion Reaction / Comment(s): POST-OP HEADACHE X1. Past Psychological History: No Psychological Hx Reported Smoking Status: Former smoker Past Alcohol Use History: Rare (1 per year) Additional Past Alcohol Use History / Comment(s): started smoking at age 17 quit by age 31. smoked 1ppd. Past Drug Use History: None Reported Additional History: She has been since 2018 and this is her second marriage. They have been together since 2003. She works at [employer]. - Past Family History Brother(s) Family Medical History: Renal Disease Father Family Medical History: Cancer, Congestive Heart Failure (CHF), Diabetes Mellitus, Myocardial Infarction ([place]) Additional Family Medical History / Comment(s): brain tumor Mother Family Medical History: Congestive Heart Failure (CHF), Coronary Artery Disease (CAD), Diabetes Mellitus, Deep Vein Thrombosis (DVT), Renal Disease Medications and Allergies Home Medications Medication Instructions Recorded Confirmed Type Calcium Carbonate/Vitamin D3 1 each PO DAILY 09/20/14 07/26/20 History [Calcium 600-Vit D3 400 Tablet] amLODIPine BESYLATE [Norvasc] 5 mg PO DAILY #30 tab 09/28/14 07/26/20 Rx hydroCHLOROthiazide [Hydrodiuril] 12.5 tab PO DAILY 10/20/14 07/26/20 History Liraglutide [Victoza 2-Ron] 0.6 mg SQ DAILY 09/17/17 07/26/20 History Atorvastatin [Lipitor] 10 mg PO DAILY 03/11/18 07/26/20 History Losartan [Cozaar] 25 mg PO DAILY 03/11/18 07/26/20 History Repaglinide 1 mg PO TID 03/11/18 07/26/20 History Cyanocobalamin (Vitamin B-12) 2,500 mcg PO DAILY 07/26/20 07/26/20 History [Vitamin B-12] Empagliflozin [Jardiance] 25 mg PO DAILY 07/26/20 07/26/20 History Omeprazole 20 mg PO DAILY 07/26/20 07/26/20 History Allergies Allergy/AdvReac Type Severity Reaction Status Date / Time No Known Allergies Allergy Verified 07/26/20 13:56 Exam Vital Signs Temp Pulse Resp BP Pulse Ox 07/26/20 14:00 98.1 F 71 18 110/72 95 Intake and Output 07/25/20 07/26/20 07/26/20 22:59 06:59 14:59 Other: Weight 105.233 kg Height 5 feet 3 inches, weight 232 pounds, BMI 41.1. This is a well-developed well-nourished heavyset white female who is alert and oriented times 3 in no acute distress. HEENT: Within normal limits. NECK: Supple without mass or thyromegaly. CHEST AND LUNGS: Clear to auscultation. HEART: Regular rate and rhythm. BREASTS: Are without mass or discharge. AXILLARY EXAM: Negative for adenopathy. BACK: Negative for CVA tenderness. ABDOMEN: Soft, nontender, without palpable masses. PELVIC EXAM: Normal external genitalia with mild atrophy. Cervix and vagina appear normal mild atrophy. There is no unusual discharge. There is no evidence of prolapse. The uterus is midposition, nongravid size and nontender. There are no palpable adnexal masses or tenderness. Bimanual examination is somewhat limited secondary to her size. RECTAL EXAM: Rectovaginal exam is negative for mass or tenderness and is negative for occult blood. EXTREMITIES: Nontender. IMPRESSION: 1. 65-year-old menopausal female with normal gynecologic exam. 2. History of osteopenia. PLAN: 1. Pap smear cotest was performed. 2. Self breast awareness was discussed with the patient. 3. Screening mammogram will be done today. 4. Osteoporosis prevention was discussed. I have stressed the importance of adequate calcium, vitamin D and regular exercise. Recommended amounts of calcium and vitamin D were also discussed. Bone density test will be done today. 5. She was advised to return in one year for her annual well woman exam.
--- NOTE | 2020-07-26 16:32 | BD ---
EXAMINATION TYPE: Axial Bone Density DATE OF EXAM: 07/26/2020 COMPARISON: NONE CLINICAL HISTORY: Height: 5 FT 3 IN Weight: 232 FRAX RISK QUESTIONS: Alcohol (3 or more units per day): NO Family History (Parent hip fracture): NO Glucocorticoids (More than 3mos): YES (Ex: prednisone, prednisolone, methylprednisolone, dexamethasone, and hydrocortisone). History of Fracture in Adulthood: NO Secondary Osteoporosis: 1. Type 1 Diabetes: NO 2. Hyperthyroidism: NO 3. Menopause before 45: NO 4. Malnutrition: NO 5. Chronic liver disease: NO Rheumatoid Arthritis: NO Current Tobacco Use: NO RISK FACTORS HISTORY OF: Family History of Osteoporosis: NO Active: YES Diet low in dairy products/other sources of calcium: NO Postmenopausal woman: AGE 49 Take estrogen and/or progesterone medications: NONE Lost more than 2 inches in height since high school: NO Poor Health: FAIR MEDICATIONS: Additional Medications: OMEPRAZOLE, VICTOSA, HYDROCHLOROTHIAZIDE, LOSARTAN, REPAAGLINIDE, ATORVASTATI N, JARDIANCE, AMLODIPINE, Additional History: PT GETS AN INFUSION TWICE A YEAR FOR [employer] EXAM MEASUREMENTS: Bone mineral densitometry was performed using the [email or web address] System. Bone mineral density as measured about the Lumbar spine is: ----- L1-L4(G/cm2): 1.168 T Score Values are as follows: ----- L2: -0.3 ----- L3: 0.3 ----- L4: -0.1 ----- L1-L4: -0.1 Bone mineral density has: INCREASED 4.5 % since study of: 2014 Bone mineral density about the R hip (g/cm2): 0.884 Bone mineral density about the L hip (g/cm2): 0.883 T Score values are as follows: -----R Neck: -1.1 -----L Neck: -1.1 -----R Total: -0.1 -----L Total: -0.2 Bone mineral density has: DECREASED -6.9 % since study of: 2014 IMPRESSION: Osteopenia (T Score between -2.5 and -1). There is slightly increased risk of fracture and the patient may be considered for treatment. Re-Screen 2-5 years. NOTE: T-SCORE=SD OF THE YOUNG ADULT MEAN.
--- NOTE | 2020-07-27 13:50 | MM ---
Reason for exam: screening (asymptomatic). Last mammogram was performed 1 year and 2 months ago. History: Patient is postmenopausal. Attempted Procedure of the left breast, August 28, 2004. Physical Findings: A clinical breast exam by your physician is recommended on an annual basis and results should be correlated with mammographic findings. MG Screening Mammo w CAD Bilateral CC and MLO view(s) were taken. Prior study comparison: May 26, 2019, bilateral MG screening mammo w CAD. March 11, 2018, bilateral MG screening mammo w CAD. There are scattered fibroglandular densities. No significant changes when compared with prior studies. ASSESSMENT: Benign, BI-RAD 2 RECOMMENDATION: Routine screening mammogram of both breasts in 1 year.
--- NOTE | 2020-08-02 10:51 | P.PN ---
Progress Note - Text Progress Note Date: 08/02/20 OUTPATIENT FOLLOW-UP NOTE TEST(S)/RESULTS: Test results from 07/26/2020 include negative Pap smear cotest, benign mammogram, and bone density testing showing osteopenia. METHOD OF NOTIFICATION: A message with these results was left on the patient's voicemail. PATIENT COMMENTS: DIAGNOSIS: Negative Pap smear cotest, benign mammogram and osteopenia. DISCUSSION: I have stressed the importance of getting adequate calcium, vitamin D and regular exercise. PLAN: She was advised to return in one year for her annual well woman exam. Repeat bone density testing in 2-3 years.
== END | disposition home or self-care (01) ==
LOC: WWCWWP 13:42
PROVIDERS: ATTEND Obstetrics & Gynecology
DX: Z12.31 Encounter for screening mammogram for malignant neoplasm of breast (principal); M85.80 Other specified disorders of bone density and structure, unspecified site; Z78.0 Asymptomatic menopausal state
CPT/HCPCS: 77067; 77080

== ENCOUNTER 2020-09-06 12:35 | Inpatient (IN) | payer BC ==
[2020-09-06] MEDS ORDERED: ACETAMINOPHEN TAB 500 MG TAB PO STA (13:20)
[2020-09-06] MEDS ORDERED: IBUPROFEN 600 MG TAB PO STA (13:20)
--- NOTE | 2020-09-06 13:27 | ED ---
General Adult HPI - General Chief complaint: Recheck/Abnormal Lab/Rx Stated complaint: SOB, fatigue, fever Time Seen by Provider: 09/06/20 12:40 Source: patient, RN notes reviewed, old records reviewed Mode of arrival: ambulatory Limitations: no limitations - History of Present Illness Initial comments: This is a 65-year-old female presents emergency Department stating she has Lidia's granulomatosis and has had a fever for 2 weeks. Patient states h ighest fever she hadn't was 102 and that occurred on Saturday. Patient states she has a very slight cough occasionally. Patient denies any difficulty breathing shortness of breath or chest pain. Patient states she's been very nauseated but hasn't vomited she does not eat a lot because she just doesn't feel hungry. Patient denies any abdominal pain patient denies any back pain. Patient does states she has some dysuria and urinary frequency. Patient is trying to keep hydrated. Patient denies any headache patient denies numbness weakness. Patient denies any lightheadedness or dizziness. Patient denies any lesions or rashes. - Related Data Home Medications Medication Instructions Recorded Confirmed hydroCHLOROthiazide [Hydrodiuril] 12.5 mg PO DAILY 10/20/14 09/06/20 Liraglutide [Victoza 2-Ron] 1.8 mg SQ HS 09/17/17 09/06/20 Atorvastatin [Lipitor] 10 mg PO DAILY 03/11/18 09/06/20 Losartan [Cozaar] 25 mg PO HS 03/11/18 09/06/20 Cyanocobalamin (Vitamin B-12) 2,500 mcg PO DAILY 07/26/20 09/06/20 [Vitamin B-12] Empagliflozin [Jardiance] 25 mg PO DAILY 07/26/20 09/06/20 Omeprazole 20 mg PO DAILY 07/26/20 09/06/20 Calcium Carbonate [Calcium] 1,200 mg PO MOWEFR 09/06/20 09/06/20 Repaglinide [Prandin] 1 mg PO DAILY 09/06/20 09/06/20 Repaglinide [Prandin] 1.5 mg PO HS 09/06/20 09/06/20 Vitamin D3(Unknown Dose) 1 tab PO DAILY 09/06/20 09/06/20 Previous Rx's Medication Instructions Recorded amLODIPine BESYLATE [Norvasc] 5 mg PO DAILY #30 tab 09/28/14 Allergies Allergy/AdvReac Type Severity Reaction Status Date / Time No Known Allergies Allergy Verified 09/06/20 13:39 Review of Systems ROS Statement: Those systems with pertinent positive or pertinent negative responses have been documented in the HPI. ROS Other: All systems not noted in ROS Statement are negative. Past Medical History Past Medical History: Diabetes Mellitus, GERD/Reflux, Hypertension, Renal Disease Additional Past Medical History / Comment(s): Type 2 diabetes. WEGENERS GRANULOMATOSIS, VARICOSE VEINS. Osteopenia. 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 History of Any Multi-Drug Resistant Organisms: None Reported Past Surgical History: Ear Surgery, Heart Catheterization, Joint Replacement, Orthopedic Surgery, Tonsillectomy Additional Past Surgical History / Comment(s): d+c, colonoscopy 2015 (next after 5yr), bronchoscopy, rt mastoid , Right Knee arthroscopy (06/2015). Total Left Knee Replacement - January 2020 Past Anesthesia/Blood Transfusion Reactions: Postoperative Nausea & Vomiting (PONV) Additional Past Anesthesia/Blood Transfusion Reaction / Comment(s): POST-OP HEADACHE X1. Past Psychological History: No Psychological Hx Reported Smoking Status: Former smoker Past Alcohol Use History: None Reported Past Drug Use History: None Reported - Past Family History Brother(s) Family Medical History: Renal Disease Father Family Medical History: Cancer, Congestive Heart Failure (CHF), Diabetes Mellitus, Myocardial Infarction ([place]) Additional Family Medical History / Comment(s): brain tumor Mother Family Medical History: Congestive Heart Failure (CHF), Coronary Artery Disease (CAD), Diabetes Mellitus, Deep Vein Thrombosis (DVT), Renal Disease General Exam - General Exam Comments Initial Comments: GENERAL: Patient is well-developed and well-nourished. Patient is nontoxic and well-hy drated and is in mild distress. ENT: Neck is soft and supple. No significant lymphadenopathy is noted. Oropharynx is clear. Moist mucous membranes. Neck has full range of motion without eliciting any pain. EYES: The sclera were anicteric and conjunctiva were pink and moist. Extraocular move ments were intact and pupils were equal round and reactive to light. Eyelids were unremarkable. PULMONARY: Unlabored respirations. Good breath sounds bilaterally. No audible rales rhonchi or wheezing was noted. CARDIOVASCULAR: There is a regular rate and rhythm without any murmurs gallops or rubs. ABDOMEN: Soft and nontender with normal bowel sounds. No palpable organomegaly was noted. There is no palpable pulsatile mass. SKIN: Skin is clear with no lesions or rashes and otherwise unremarkable. NEUROLOGIC: Patient is alert and oriented x3. Cranial nerves II through XII are grossly intact. Motor and sensory are also intact. Normal speech, volume and content. Symmetrical smile. Cerebellar exam grossly intact. MUSCULOSKELETAL: Normal extremities with adequate strength and full range of motion. No lower extremity swelling or edema. No calf tenderness. LYMPHATICS: No significant lymphadenopathy is noted PSYCHIATRIC: Normal psychiatric evaluation. Limitations: no limitations Course Vital Signs 09/06/20 09/06/20 09/06/20 12:40 13:21 15:30 Temperature 99.8 F H 101.7 F H 101.8 F H Pulse Rate 82 73 Respiratory 18 18 Rate Blood Pressure 151/79 108/73 O2 Sat by Pulse 97 96 Oximetry Medical Decision Making - Medical Decision Making Patient's ideal body weight is 52.2 kg EKG shows normal sinus rhythm at 79 bpm NH interval 176 dresses 86 QT interval 366 QTC is 419. Patient's EKG shows no ST segment elevation or depression. X-ray shows right lower lobe pneumonia. I'm going to admit the patient because she's had 2 weeks of fever and this is not consistent with the level of pneumonia that I see. I spoke with Dr. James and his nurse practitioner she was in agreement I admitted the patient wrote admitting orders. - Lab Data Result diagrams: 09/06/20 14:04 09/06/20 14:04 Lab Results 09/06/20 09/06/20 09/06/20 Range/Units 14:04 14:04 14:04 WBC 6.1 (3.8-10.6) k/uL RBC 5.23 (3.80-5.40) m/uL Hgb 14.3 (11.4-16.0) gm/dL Hct 42.4 (34.0-46.0) % MCV 81.1 (80.0-100.0) fL MCH 27.3 (25.0-35.0) pg MCHC 33.7 (31.0-37.0) g/dL RDW 13.5 (11.5-15.5) % Plt Count 242 (150-450) k/uL MPV 8.5 Neutrophils % 70 % Lymphocytes % 17 % Monocytes % 9 % Eosinophils % 0 % Basophils % 1 % Neutrophils # 4.3 (1.3-7.7) k/uL Lymphocytes # 1.0 (1.0-4.8) k/uL Monocytes # 0.5 (0-1.0) k/uL Eosinophils # 0.0 (0-0.7) k/uL Basophils # 0.1 (0-0.2) k/uL PT 11.0 (9.0-12.0) sec INR 1.0 (<1.2) APTT 22.7 (22.0-30.0) sec Sodium 136 L (137-145) mmol/L Potassium 3.3 L (3.5-5.1) mmol/L Chloride 97 L (98-107) mmol/L Carbon Dioxide 28 (22-30) mmol/L Anion Gap 11 mmol/L BUN 15 (7-17) mg/dL Creatinine 1.31 H (0.52-1.04) mg/dL Est GFR (CKD-EPI)AfAm 50 (>60 ml/min/1.73 sqM) Est GFR (CKD-EPI)NonAf 43 (>60 ml/min/1.73 sqM) Glucose 86 (74-99) mg/dL Plasma Lactic Acid Anand (0.7-2.0) mmol/L Calcium 9.6 (8.4-10.2) mg/dL Total Bilirubin 0.8 (0.2-1.3) mg/dL AST 28 (14-36) U/L ALT 18 (4-34) U/L Alkaline Phosphatase 94 (38-126) U/L Total Protein 7.5 (6.3-8.2) g/dL Albumin 4.3 (3.5-5.0) g/dL Urine Color Urine Appearance (Clear) Urine pH (5.0-8.0) Ur Specific [place] (1.001-1.035) Urine Protein (Negative) Urine Glucose (UA) (Negative) Urine Ketones (Negative) Urine Blood (Negative) Urine Nitrite (Negative) Urine Bilirubin (Negative) Urine Urobilinogen (<2.0) mg/dL Ur Leukocyte Esterase (Negative) Influenza Type A (PCR) (Not Detectd) Influenza Type B (PCR) (Not Detectd) RSV (PCR) (Not Detectd) SARS-CoV-2 (PCR) (Not Detectd) 09/06/20 09/06/20 09/06/20 Range/Units 14:04 14:04 16:17 WBC (3.8-10.6) k/uL RBC (3.80-5.40) m/uL Hgb (11.4-16.0) gm/dL Hct (34.0-46.0) % MCV (80.0-100.0) fL MCH (25.0-35.0) pg MCHC (31.0-37.0) g/dL RDW (11.5-15.5) % Plt Count (150-450) k/uL MPV Neutrophils % % Lymphocytes % % Monocytes % % Eosinophils % % Basophils % % Neutrophils # (1.3-7.7) k/uL Lymphocytes # (1.0-4.8) k/uL Monocytes # (0-1.0) k/uL Eosinophils # (0-0.7) k/uL Basophils # (0-0.2) k/uL PT (9.0-12.0) sec INR (<1.2) APTT (22.0-30.0) sec Sodium (137-145) mmol/L Potassium (3.5-5.1) mmol/L Chloride (98-107) mmol/L Carbon Dioxide (22-30) mmol/L Anion Gap mmol/L BUN (7-17) mg/dL Creatinine (0.52-1.04) mg/dL Est GFR (CKD-EPI)AfAm (>60 ml/min/1.73 sqM) Est GFR (CKD-EPI)NonAf (>60 ml/min/1.73 sqM) Glucose (74-99) mg/dL Plasma Lactic Acid Anand 1.7 (0.7-2.0) mmol/L Calcium (8.4-10.2) mg/dL Total Bilirubin (0.2-1.3) mg/dL AST (14-36) U/L ALT (4-34) U/L Alkaline Phosphatase (38-126) U/L Total Protein (6.3-8.2) g/dL Albumin (3.5-5.0) g/dL Urine Color Yellow Urine Appearance Clear (Clear) Urine pH 5.5 (5.0-8.0) Ur Specific [place] 1.015 (1.001-1.035) Urine Protein Trace H (Negative) Urine Glucose (UA) 4+ H (Negative) Urine Ketones Negative (Negative) Urine Blood Negative (Negative) Urine Nitrite Negative (Negative) Urine Bilirubin Negative (Negative) Urine Urobilinogen <2.0 (<2.0) mg/dL Ur Leukocyte Esterase Negative (Negative) Influenza Type A (PCR) Not Detected (Not Detectd) Influenza Type B (PCR) Not Detected (Not Detectd) RSV (PCR) Not Detected (Not Detectd) SARS-CoV-2 (PCR) Not Detected (Not Detectd) Disposition Clinical Impression: Pneumonia Disposition: ADMITTED IP TO THIS HOSP Referrals: Rex Viramontes DO [Primary Care Provider] - 1-2 days Time of Disposition: 16:42
[2020-09-06 14:15] LABS: Basophils # (A) 0.1 k/uL (0-0.2); Basophils % (A) 1 %; Eosinophils % (A) 0 %; HCT 42.4 % (34.0-46.0); HGB 14.3 gm/dL (11.4-16.0); Lymphocytes % (A) 17 %; MCH 27.3 pg (25.0-35.0); MCHC 33.7 g/dL (31.0-37.0); MCV 81.1 fL (80.0-100.0); Mean Platelet Volume 8.5; Monocytes # (A) 0.5 k/uL (0-1.0); Monocytes % (A) 9 %; Neutrophils # (A) 4.3 k/uL (1.3-7.7); Neutrophils % (A) 70 %; Platelet Count 242 k/uL (150-450); RBC 5.23 m/uL (3.80-5.40); RDW 13.5 % (11.5-15.5); WBC 6.1 k/uL (3.8-10.6)
[2020-09-06 14:24] LABS: Partial Thromboplastin Time 22.7 sec (22.0-30.0)
[2020-09-06 14:25] LABS: Albumin 4.3 g/dL (3.5-5.0); Calcium 9.6 mg/dL (8.4-10.2); Potassium 3.3 mmol/L (3.5-5.1); Total Bilirubin 0.8 mg/dL (0.2-1.3); Total Protein 7.5 g/dL (6.3-8.2)
[2020-09-06] MEDS: SODIUM CHLORIDE 0.9% 500 ML 500 ML IV SCH ×3 (14:28→16:12)
--- NOTE | 2020-09-06 14:57 | XR ---
EXAMINATION TYPE: XR chest 2V DATE OF EXAM: 09/06/2020 COMPARISON: 09/20/2014 TECHNIQUE: PA and lateral views submitted. HISTORY: Fever FINDINGS: Patchy subsegmental area of density in the right lower lobe. Coarsened interstitium may be chronic. A rthropathy of the shoulders with no pneumothorax. Heart size normal. No overt failure or pleural effu lili. Degenerative change of the spine. IMPRESSION: 1. Patchy right lower lobe and infrahilar area of infiltrate. Follow to resolution.
[2020-09-06 16:21] LABS: Appearance,Urine Clear (Clear); Bilirubin,Urine Negative (Negative); Blood,Urine Negative (Negative); Color,Urine Yellow; Glucose,Urine (UA) 4+ (Negative); Ketones,Urine Negative (Negative); Leukocyte Esterase,Urine Negative (Negative); Nitrite,Urine Negative (Negative); PH, Urine 5.5 (5.0-8.0); Protein,Urine Trace (Negative); Specific Gravity,Urine 1.015 (1.001-1.035); Urobilinogen,Urine <2.0 mg/dL (<2.0)
[2020-09-06] MEDS ORDERED: AZITHROMYCIN 500 MG in SODIUM CHLORIDE 0.9% 250 ML IVPB STA (16:42)
[2020-09-06] MEDS ORDERED: PNEUMONIA PROTOCOL UTILIZED 1 EACH MISC PO PRN (16:42)
[2020-09-06] MEDS ORDERED: cefTRIAXone IN SWFI 1,000 MG/10 ML SYRINGE IVP STA (16:46)
[2020-09-06 21:14] LABS: Glucose,Whole Blood 144 mg/dL (75-99)
[2020-09-06] MEDS: REPAGLINIDE 1 MG TAB PO SCH (21:24)
[2020-09-06] MEDS: INSULIN ASPART (NovoLOG) 100 UNIT/ML VIAL SQ SCH (21:24)
[2020-09-07 06:54] LABS: Glucose,Whole Blood 94 mg/dL (75-99)
[2020-09-07] MEDS: INSULIN ASPART (NovoLOG) 100 UNIT/ML VIAL SQ SCH ×4 (07:07→20:36)
[2020-09-07] MEDS: ACETAMINOPHEN TAB 325 MG TAB PO PRN ×3 (08:26→22:14)
--- NOTE | 2020-09-07 10:05 | XR ---
EXAMINATION TYPE: XR chest 2V DATE OF EXAM: 09/07/2020 COMPARISON: Chest x-ray 09/06/2020 HISTORY: Pneumonia TECHNIQUE: Frontal and lateral views of the chest are obtained. FINDINGS: Patchy density appears more conspicuous in the right lung base. No evident pneumothorax or pleural effusion. Cardiac mediastinal silhouette is stable. Some minimal patchy left-sided density i s questioned. IMPRESSION: Correlate for pneumonia, follow-up suggested
[2020-09-07 11:01] LABS: Potassium 3.2 mmol/L (3.5-5.1)
[2020-09-07] MEDS ORDERED: Potassium Replacement Protocol 1 EACH MISC MISCELLANE PRN (11:14)
[2020-09-07] MEDS ORDERED: hydroCHLOROthiazide 12.5 MG CAP PO SCH (11:15)
[2020-09-07 11:33] LABS: African American GFR (CKD) 60 (>60 ml/min/1.73 sqM); Anion Gap 7 mmol/L; Blood Urea Nitrogen 15 mg/dL (7-17); Calcium 8.5 mg/dL (8.4-10.2); Carbon Dioxide 23 mmol/L (22-30); Chloride 104 mmol/L (98-107); Glucose 159 mg/dL (74-99); Non-African American GFR(CKD) 52 (>60 ml/min/1.73 sqM); Sodium 134 mmol/L (137-145)
[2020-09-07 11:38] LABS: Glucose,Whole Blood 126 mg/dL (75-99)
[2020-09-07] MEDS: POTASSIUM CHLORIDE 10 MEQ in WATER FOR INJECTION 1 100ML.BAG IVPB SCH ×4 (11:50→15:32)
[2020-09-07] MEDS: CYANOCOBALAMIN 500 MCG TAB PO SCH (12:07)
[2020-09-07] MEDS: CHOLECALCIFEROL 25 MCG (1000 IU) TABLET PO SCH (12:07)
[2020-09-07] MEDS: CALCIUM CARB-VIT D 500 MG-5 MCG TAB PO SCH (12:08)
[2020-09-07] MEDS: amLODIPine 5 MG TAB PO SCH (12:08)
[2020-09-07] MEDS: ATORVASTATIN 10 MG TAB PO SCH (12:08)
[2020-09-07 16:32] LABS: Glucose,Whole Blood 146 mg/dL (75-99)
[2020-09-07] MEDS: AZITHROMYCIN 500 MG TAB PO SCH (16:35)
[2020-09-07 19:44] LABS: Glucose,Whole Blood 206 mg/dL (75-99)
[2020-09-07 20:13] LABS: C Reactive Protein 63.9 mg/L (<10.0); Potassium 3.6 mmol/L (3.5-5.1)
--- NOTE | 2020-09-07 20:47 | P.HPIM ---
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 Viramontes, also she follows up with Dr. Girard for kidney disease Patient presents because of persistent fever for 2 weeks. Patient states 2 weeks ago she started running fever and she went to urgent care we checked her culprit twice and it was not detected then follow up with her PCP which is therefore influenza and it was negative as well. And he asked her to take some antipyretic and go back to work at work they advised him to go to the hospital. She feels little short of breath especially with walking with little cough. No chest pain. She has diarrhea like one set today which was loose compared to yesterday she did not have bowel movement she denies smoking, alcohol or illicit drugs. Patient is febrile at 103, she is saturating 95% on room air. CBC is unremarkable. INR is normal. BMP showed elevated creatinine 1.3, down to 1.1, sugar is controlled, liver enzymes not elevated, potassium 3.2, sodium is 134. Urinalysis is not suspicious for infection, influenza is negative, call bed is negative RSV is negative Chest x-ray from today correlate for pneumonia with patchy density appears more conspicuous in the right lung base. EKG showing normal sinus rhythm at [address]-T changes and emergency room she was started on ceftriaxone and Zithromax Infectious disease team were consulted Review of Systems CONSTITUTIONAL: No fever, no malaise, no fatigue. HEENT: No recent visual problems or hearing problems. Denied any sore throat. CARDIOVASCULAR: No orthopnea, PND, no palpitations, no syncope. PULMONARY: No chest wall tenderness, no hemoptysis. GASTROINTESTINAL: No diarrhea, no nausea, no vomiting, no abdominal pain. Normoactive bowel sounds. NEUROLOGICAL: No headaches, no weakness, no numbness. HEMATOLOGICAL: Denies any bleeding or petechiae. GENITOURINARY: Denies any burning micturition, frequency, or urgency. MUSCULOSKELETAL/RHEUMATOLOGICAL: Denies any joint pain, swelling, or any muscle pain. ENDOCRINE: Denies any polyuria or polydipsia. Past Medical History Past Medical History: Diabetes Mellitus, GERD/Reflux, Hypertension, Renal Disease Additional Past Medical History / Comment(s): Type 2 diabetes. WEGENERS GRANULOMATOSIS, VARICOSE VEINS. Osteopenia. 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 History of Any Multi-Drug Resistant Organisms: None Reported Past Surgical History: Ear Surgery, Heart Catheterization, Joint Replacement, Orthopedic Surgery, Tonsillectomy Additional Past Surgical History / Comment(s): d+c, colonoscopy 2016 (next after 5yr), bronchoscopy, rt mastoid , Right Knee arthroscopy (06/2015). Total Left Knee Replacement - January 2020 Past Anesthesia/Blood Transfusion Reactions: Postoperative Nausea & Vomiting (PONV) Additional Past Anesthesia/Blood Transfusion Reaction / Comment(s): POST-OP HEADACHE X1. Past Psychological History: No Psychological Hx Reported Smoking Status: Former smoker Past Alcohol Use History: None Reported Additional Past Alcohol Use History / Comment(s): started smoking at age 17 quit by age 31. smoked 1ppd. Past Drug Use History: None Reported - Past Family History Brother(s) Family Medical History: Renal Disease Father Family Medical History: Cancer, Congestive Heart Failure (CHF), Diabetes Mellitus, Myocardial Infarction ([place]) Additional Family Medical History / Comment(s): brain tumor Mother Family Medical History: Congestive Heart Failure (CHF), Coronary Artery Disease (CAD), Diabetes Mellitus, Deep Vein Thrombosis (DVT), Renal Disease Medications and Allergies Home Medications Medication Instructions Recorded Confirmed Type amLODIPine BESYLATE [Norvasc] 5 mg PO DAILY #30 tab 09/28/14 09/06/20 Rx hydroCHLOROthiazide [Hydrodiuril] 12.5 mg PO DAILY 10/20/14 09/06/20 History Liraglutide [Victoza 2-Ron] 1.8 mg SQ HS 09/17/17 09/06/20 History Atorvastatin [Lipitor] 10 mg PO DAILY 03/11/18 09/06/20 History Losartan [Cozaar] 25 mg PO HS 03/11/18 09/06/20 History Cyanocobalamin (Vitamin B-12) 2,500 mcg PO DAILY 07/26/20 09/06/20 History [Vitamin B-12] Empagliflozin [Jardiance] 25 mg PO DAILY 07/26/20 09/06/20 History Omeprazole 20 mg PO DAILY 07/26/20 09/06/20 History Calcium Carbonate [Calcium] 1,200 mg PO MOWEFR 09/06/20 09/06/20 History Repaglinide [Prandin] 1 mg PO DAILY 09/06/20 09/06/20 History Repaglinide [Prandin] 1.5 mg PO HS 09/06/20 09/06/20 History Vitamin D3(Unknown Dose) 1 tab PO DAILY 09/06/20 09/06/20 History Allergies Allergy/AdvReac Type Severity Reaction Status Date / Time No Known Allergies Allergy Verified 09/06/20 13:39 Physical Exam Vitals: Vital Signs Temp Pulse Pulse Resp BP BP Pulse Ox 09/07/20 14:00 103.0 F H 73 18 135/72 95 09/07/20 07:37 97.9 F 100 18 147/75 96 09/07/20 02:00 98.0 F 56 L 18 107/62 93 L 09/06/20 20:00 71 18 09/06/20 19:40 98.0 F 71 18 122/69 95 09/06/20 18:57 56 L 16 116/64 98 09/06/20 16:42 98.3 F 60 18 130/67 95 09/06/20 15:30 101.8 F H 73 18 108/73 96 Intake and Output 09/06/20 09/07/20 09/07/20 22:59 06:59 14:59 Other: # Voids 2 Weight 103.419 kg GENERAL: The patient is alert and oriented x3, not in any acute distress. Well developed, well nourished. HEENT: Pupils are round and equally reacting to light. EOMI. No scleral icterus. No conjunctival pallor. Normocephalic, atraumatic. No pharyngeal erythema. No thyromegaly. CARDIOVASCULAR: S1 and S2 present. No murmurs, rubs, or gallops. PULMONARY: Chest is clear to auscultation, no wheezing or crackles. ABDOMEN: Soft, nontender, nondistended, normoactive bowel sounds. No palpable organomegaly. MUSCULOSKELETAL: No joint swelling or deformity. EXTREMITIES: No cyanosis, clubbing, or pedal edema. NEUROLOGICAL: Gross neurological examination did not reveal any focal deficits. SKIN: No rashes. No petechiae Results CBC & Chem 7: 09/06/20 14:04 09/07/20 19:09 Labs: Abnormal Lab Results - Last 24 Hours (Table) 09/06/20 09/06/20 09/06/20 Range/Units 14:04 16:17 21:11 Sodium 136 L (137-145) mmol/L Potassium 3.3 L (3.5-5.1) mmol/L Chloride 97 L (98-107) mmol/L Creatinine 1.31 H (0.52-1.04) mg/dL Glucose (74-99) mg/dL POC Glucose (mg/dL) 144 H (75-99) mg/dL Urine Protein Trace H (Negative) Urine Glucose (UA) 4+ H (Negative) 09/07/20 09/07/20 Range/Units 10:33 11:36 Sodium 134 L (137-145) mmol/L Potassium 3.2 L (3.5-5.1) mmol/L Chloride (98-107) mmol/L Creatinine 1.12 H (0.52-1.04) mg/dL Glucose 159 H (74-99) mg/dL POC Glucose (mg/dL) 126 H (75-99) mg/dL Urine Protein (Negative) Urine Glucose (UA) (Negative) Thrombosis Risk Factor Assmnt - Choose All That Apply Each Factor Represents 1 point: Obesity (BMI >25), Varicose veins Each Risk Factor Represents 2 Points: Age 61-74 years Thrombosis Risk Factor Assessment Total Risk Factor Score: 4 Thrombosis Risk Factor Assessment Level: Moderate Risk Assessment and Plan Assessment: community acquired right lower lobe pneumonia 2 diabetes mellitus Hypertension History of GERD Chacon granulomatosis Chronic kidney disease stage III Plan: this is a pleasant 65 years old female who presents with right lower lobe pneumonia, with fever. Continue with ceftriaxone and Zithromax. Check procalcitonin Incision in the urine, follow-up sputum culture and blood culture. Follow-up recommendation by infectious disease team Labs and medication were reviewed.. Continue same treatment. Continue with symptomatic treatment. Resume home medication. Monitor lytes and vitals. DVT and GI prophylaxis. Further recommendations depends on the clinical course of the patient DVT prophylaxis: Subcutaneous heparin GI Prophylaxis: Pepcid PT/OT: Pending Prognosis is guarded
[2020-09-07] MEDS ORDERED: LOSARTAN 25 MG TAB PO SCH (21:00)
[2020-09-07] MEDS: REPAGLINIDE 1 MG TAB PO SCH (21:27)
[2020-09-07] MEDS ORDERED: IBUPROFEN 200 MG TAB PO SCH (22:55)
--- NOTE | 2020-09-08 00:03 | CONS ---
CONSULTATION DATE OF CONSULTATION: 09/07/2020 REASON FOR CONSULTATION: Pneumonia. HISTORY OF PRESENT ILLNESS: The patient is a 65 -year-old female presenting to the ER with chief complaints of fever that has been going on for about 2 weeks now. The patient mentions that she has a daily spike in a fever. Denies any rigors or chills. The patient denies having any headache or URI symptoms. Denies having any chest pain or shortness of breath. The patient did have minimal cough with occasional sputum production. No hemoptysis. The patient denies any nausea, no vomiting. No abdominal pain or any diarrhea. The patient mentioned she has been tested for Covid in the outpatient setting as well as for influenza and those have been negative. On arrival to the ER, the patient has been running a fever of 101-103 degrees Fahrenheit. The patient has been mildly hypoxic at 93% on room air. Patient on presentation to hospital did have a normal white count and no lymphopenia. D-dimer was mildly elevated at 0.96, creatinine was 1.12. Liver enzymes have been normal. Urine was negative. Valentin PCR came back negative as well as influenza. Patient did have a chest x-ray, patchy right lower lobe infiltrate. The patient has been admitted to the hospital. The patient was started on Zithromax and Rocephin. Infectious Disease was consulted with concern for persistent fever and concern for pneumonia. REVIEW OF SYSTEMS: Positive points have been mentioned in HPI. Rest of the systems are negative. PAST MEDICAL HISTORY: Past medical history significant for diabetes mellitus, gastroesophageal reflux disease, hypertension, renal insufficiency, . PAST SURGICAL HISTORY: Heart catheterization, tonsillectomy and D and C, right knee arthroscopy, total left knee replacement. SOCIAL HISTORY: Remote history of smoking. No drinking or drug use. FAMILY HISTORY: Father history of congestive heart failure. Mother history of congestive heart failure as well. ALLERGIES: No known drug allergies. MEDICATIONS: Include the patient is currently on Prandin, NovoLog, heparin, Rocephin 2 grams daily. She is on Zithromax, Lipitor, Norvasc, and Tylenol. PHYSICAL EXAMINATION: Blood pressure 122/67 with a pulse of 73, temperature is 103. She is 93% on room air. General description: The patient is a middle-aged female up in the bed in no distress. No tachypnea or accessory muscle of respiration use. HEENT: Examination shows no pallor or scleral icterus. Oral mucous membranes dry. NECK trachea central. LUNGS: Unlabored breathing. A few fine crackles at the base. No wheeze. HEART S1, S2. Regular rate and rhythm. ABDOMEN: Soft, no tenderness. No guarding. No rigidity. EXTREMITIES: No edema of the feet. SKIN examination: No rash or mass palpable. NEUROLOGICAL: Patient is awake, alert, oriented x3. Mood and affect normal. LABS: Hemoglobin is 14.8, white count 6.1. D-dimer mildly elevated 0.96, BUN of 15, creatinine 1.12, admission creatinine was 1.31. Liver enzymes are normal. Urine is negative. Valentin and influenza PCR negative. DIAGNOSTIC IMPRESSION AND PLAN: The patient presented to hospital with fever that has been going on for 2 weeks in this patient did have mild respiratory symptoms with evidence of right lower lobe infiltrate concern for possible pneumonia in this patient who has been tested multiple times for Covid that has been negative. Influenza has been negative though with no elevated white count. Still clinical suspicion is high for viral pneumonia with bacterial pneumonia to be on the list. PLAN: 1. We will check CRP, procalcitonin and to obtain sputum for Gram stain culture. Check urine for Legionella antigen. 2. Check a CT of the chest. 3. Continue Rocephin and Flomax at this point. 4. We will follow on clinical condition and culture to further adjust medication if needed. Thank you for this consultation. Will follow this patient along with you. MMODL / IJN: [id number] /
[2020-09-08] MEDS: HEPARIN SODIUM,PORCINE 5,000 UNIT/ML 1 ML VIAL SQ SCH ×3 (00:25→15:10)
[2020-09-08 03:40] LABS: Ferritin 379.3 ng/mL (10.0-291.0)
[2020-09-08] MEDS ORDERED: IBUPROFEN 200 MG TAB PO PRN (07:08)
[2020-09-08 07:29] LABS: Glucose,Whole Blood 102 mg/dL (75-99)
[2020-09-08] MEDS: INSULIN ASPART (NovoLOG) 100 UNIT/ML VIAL SQ SCH ×4 (07:45→20:43)
[2020-09-08] MEDS: CALCIUM CARB-VIT D 500 MG-5 MCG TAB PO SCH (08:15)
[2020-09-08] MEDS: amLODIPine 5 MG TAB PO SCH (08:15)
[2020-09-08] MEDS: CYANOCOBALAMIN 500 MCG TAB PO SCH (08:16)
[2020-09-08] MEDS: CHOLECALCIFEROL 25 MCG (1000 IU) TABLET PO SCH (08:16)
[2020-09-08] MEDS: ATORVASTATIN 10 MG TAB PO SCH (08:16)
--- NOTE | 2020-09-08 09:05 | CT ---
EXAMINATION TYPE: CT chest wo con DATE OF EXAM: 09/08/2020 COMPARISON: Radiograph 09/07/2020 and 09/06/2020 HISTORY: 65-year-old female Fever, Pneumonia TECHNIQUE: Contiguous axial scanning of the chest without IV contrast. Coronal and sagittal reconstru ctions performed. CT DLP: 558.6 mGycm Automated exposure control for dose reduction was used. FINDINGS: Heart normal size with trace pericardial fluid. Mildly ectatic ascending aorta 3.6 cm. Mildly ectatic upper descending thoracic aorta 3.0 cm. Bovine configuration to the aortic arch. There may be variant takeoff of the left vertebral artery directly from the aortic arch is well. Prominent but nonenlarged 9 mm precarinal lymph node. No thoracic lymphadenopathy by CT size criteria . Borderline to mildly enlarged caliber to the main right and left pulmonary arteries at 2.6 and 2.5 cm , respectively, suggesting underlying pulmonary arterial hypertension. Cystic-appearing structure along the right heart margin measuring 2.6 x 1.3 cm, suspected pericardiac cyst. Follow-up is recommended. Multifocal patchy peripheral and peribronchial vascular groundglass opacities upper and midlungs and more confluent opacities in the right lower lobe. No pleural effusion. Visualized upper abdomen shows calcified granulomas within the spleen. Bones: Scattered moderate degenerative disc disease. IMPRESSION: 1. PATCHY PERIPHERAL AND PERIBRONCHOVASCULAR GROUNDGLASS IN THE UPPER AND MID LUNGS AND MORE CONFLUEN T WITHIN THE RIGHT LOWER LOBE. CLINICALLY CORRELATE FINDINGS CAN BE SEEN WITH COVID PNEUMONIA. 2. POSSIBLE UNDERLYING PULMONARY ARTERIAL HYPERTENSION. 3. SUSPECTED 2.6 X 1.3 CM PERICARDIAC CYST ALONG THE RIGHT HEART MARGIN. SIX-MONTH FOLLOW-UP CT TO RE ASSESS.
[2020-09-08 11:37] LABS: Glucose,Whole Blood 177 mg/dL (75-99)
--- NOTE | 2020-09-08 12:02 | P.PN ---
Subjective This is a pleasant 65 years old female with past medical history of diabetes mellitus, hypertension, GERD Chacon granulomatosis and she follows up with her diabetes physician .she is a patient of Dr. Viramontes, also she follows up with Dr. Girard for kidney disease Patient presents because of persistent fever for 2 weeks. Patient states 2 weeks ago she started running fever and she went to urgent care we checked her culprit twice and it was not detected then follow up with her PCP which is therefore influenza and it was negative as well. And he asked her to take some antipyretic and go back to work at work they advised him to go to the hospital. She feels little short of breath especially with walking with little cough. No chest pain. She has diarrhea like one set today which was loose compared to yesterday she did not have bowel movement she denies smoking, alcohol or illicit drugs. Patient is febrile at 103, she is saturating 95% on room air. CBC is unremarkable. INR is normal. BMP showed elevated creatinine 1.3, down to 1.1, sugar is controlled, liver enzymes not elevated, potassium 3.2, sodium is 134. Urinalysis is not suspicious for infection, influenza is negative, call bed is negative RSV is negative Chest x-ray from today correlate for pneumonia with patchy density appears more conspicuous in the right lung base. EKG showing normal sinus rhythm at [address]-T changes and emergency room she was started on ceftriaxone and Zithromax Infectious disease team were consulted 09/08/2020 Patient does not have respiratory or GI symptoms. However she feels generally weak and fatigued. She has a fever of 103 yesterday but no more fever since then. Her d-dimer is elevated 0.96. CT of the chest showing multifocal patchy peripheral and peribronchial vascular ground glass opacity upper and mid lungs and more compliant opacity in the right lower lobe. No pleural effusion. Suspected right margin pericardial cyst 2.6 x 1.3 cm and the recommended 6 months follow-up. Throatcalcific tone and is slightly elevated at 0.13. Creatinine stable at baseline 1.2 which is slightly elevated She remains on Zithromax and ceftriaxone currently Review of Systems CONSTITUTIONAL: No fever, no malaise, no fatigue. HEENT: No recent visual problems or hearing problems. Denied any sore throat. CARDIOVASCULAR: No orthopnea, PND, no palpitations, no syncope. PULMONARY: No chest wall tenderness, no hemoptysis. GASTROINTESTINAL: No diarrhea, no nausea, no vomiting, no abdominal pain. Normoactive bowel sounds. NEUROLOGICAL: No headaches, no weakness, no numbness. HEMATOLOGICAL: Denies any bleeding or petechiae. Active Medications Generic Name Dose Route Start Last Admin Trade Name Freq PRN Reason Stop Dose Admin Acetaminophen 650 mg 09/06/20 16:46 09/07/20 22:14 Acetaminophen Tab 325 Mg Tab PO 650 mg Q4HR PRN Administration Fever and/ or Pain Amlodipine Besylate 5 mg 09/07/20 11:15 09/08/20 08:15 Amlodipine 5 Mg Tab PO 5 mg DAILY [facility] Administration Atorvastatin Calcium 10 mg 09/07/20 11:15 09/08/20 08:16 Atorvastatin 10 Mg Tab PO 10 mg DAILY [facility] Administration Azithromycin 500 mg 09/07/20 17:00 09/07/20 16:35 Azithromycin 500 Mg Tab PO 500 mg DAILY@1700 [facility] Administration Calcium Carbonate 2 each 09/07/20 12:00 09/08/20 08:15 Calcium Carb-Vit D 500 Mg-5 Mcg Tab PO 2 each MoWeFr@0900 [facility] Administration Cholecalciferol 25 mcg 09/07/20 11:30 09/08/20 08:16 Cholecalciferol 25 Mcg (1000 Iu) Tablet PO 25 mcg DAILY [facility] Administration Cyanocobalamin 2,500 mcg 09/07/20 11:15 09/08/20 08:16 Cyanocobalamin 500 Mcg Tab PO 2,500 mcg DAILY [facility] Administration Heparin Sodium (Porcine) 5,000 unit 09/08/20 00:00 09/08/20 08:15 Heparin Sodium,Porcine 5,000 Unit/Ml 1 Ml Vial SQ 5,000 unit Q8HR [facility] Administration Ceftriaxone Sodium 2 gm/ 50 mls @ 100 mls/hr 09/07/20 09:00 09/08/20 08:13 Sodium Chloride IVPB 09/09/20 09:01 100 mls/hr Q24HR [facility] Administration Ibuprofen 200 mg 09/08/20 07:08 Ibuprofen 200 Mg Tab PO Q8HR PRN Fever Insulin Aspart 0 unit 09/06/20 21:00 09/08/20 11:46 Insulin Aspart (Novolog) 100 Unit/Ml Vial SQ 3 unit ACHS [facility] Administration Protocol Miscellaneous Information 1 each 09/06/20 16:42 Pneumonia Protocol Utilized 1 Each Misc PO ONCE PRN Per Protocol Miscellaneous Information 1 each 09/07/20 11:14 Potassium Replacement Protocol 1 Each Misc MISCELLANE DAILY PRN Per Protocol Protocol Repaglinide 1.5 mg 09/06/20 21:00 09/07/20 21:27 Repaglinide 1 Mg Tab PO 1.5 mg HS [facility] Administration Objective - Vital Signs Vital signs: Vital Signs Temp 98.1 F 09/08/20 10:00 Pulse 68 09/08/20 10:00 Resp 16 09/08/20 10:00 BP 141/78 09/08/20 10:00 Pulse Ox 94 L 09/08/20 10:00 Intake & Output 09/07/20 09/08/20 09/08/20 18:59 06:59 18:59 Intake Total 450 Balance 450 Intake: IV 50 cefTRIAXone 2 gm In 50 Sodium Chloride 0.9% 50 ml @ 100 mls/hr IVPB Q24HR [facility] Rx#:[id number] Intake, IV Titration 400 Amount Potassium Chloride 10 meq 400 In Water For Injection 1 100ml.bag @ 100 mls/hr IVPB Q1HR [facility] Rx#: [id number] Other: # Voids 2 - Exam GENERAL: The patient is alert and oriented x3, not in any acute distress. Well developed, well nourished. HEENT: Pupils are round and equally reacting to light. EOMI. No scleral icterus. No conjunctival pallor. Normocephalic, atraumatic. No pharyngeal erythema. No thyromegaly. CARDIOVASCULAR: S1 and S2 present. No murmurs, rubs, or gallops. PULMONARY: Chest is clear to auscultation, no wheezing or crackles. ABDOMEN: Soft, nontender, nondistended, normoactive bowel sounds. No palpable organomegaly. MUSCULOSKELETAL: No joint swelling or deformity. EXTREMITIES: No cyanosis, clubbing, or pedal edema. NEUROLOGICAL: Gross neurological examination did not reveal any focal deficits. SKIN: No rashes. no petechiae. - Labs CBC & Chem 7: 09/06/20 14:04 09/07/20 19:09 Labs: Abnormal Lab Results - Last 24 Hours (Table) 09/07/20 09/07/20 09/07/20 Range/Units 10:33 16:29 19:09 D-Dimer 0.96 H (<0.60) mg/L FEU POC Glucose (mg/dL) 146 H (75-99) mg/dL Ferritin (10.0-291.0) ng/mL C-Reactive Protein (<10.0) mg/L Procalcitonin 0.13 H (0.02-0.09) ng/mL 09/07/20 09/07/20 09/08/20 Range/Units 19:09 19:42 07:27 D-Dimer (<0.60) mg/L FEU POC Glucose (mg/dL) 206 H 102 H (75-99) mg/dL Ferritin 379.3 H (10.0-291.0) ng/mL C-Reactive Protein 63.9 H (<10.0) mg/L Procalcitonin (0.02-0.09) ng/mL 09/08/20 Range/Units 11:34 D-Dimer (<0.60) mg/L FEU POC Glucose (mg/dL) 177 H (75-99) mg/dL Ferritin (10.0-291.0) ng/mL C-Reactive Protein (<10.0) mg/L Procalcitonin (0.02-0.09) ng/mL Microbiology - Last 24 Hours (Table) 09/06/20 14:04 Blood Culture - Preliminary Blood No Growth after 24 hours 09/06/20 14:04 Blood Culture - Preliminary Blood No Growth after 24 hours Assessment and Plan Assessment: community acquired right lower lobe pneumonia Chronic kidney disease stage III pericardial cyst 2.6 x 1.3 cm 2 diabetes mellitus Hypertension History of GERD Chacon granulomatosis Chronic kidney disease stage III Plan: this is a pleasant 65 years old female who presents with right lower lobe pn eumonia, with fever. Continue with ceftriaxone and Zithromax. And monitor fever and respiratory function Incision in the urine, follow-up sputum culture and blood culture. Follow-up recommendation by infectious disease team Labs and medication were reviewed.. Continue same treatment. Continue with symptomatic treatment. Resume home medication. Monitor lytes and vitals. DVT and GI prophylaxis. Further recommendations depends on the clinical course of the patient DVT prophylaxis: Subcutaneous heparin GI Prophylaxis: Pepcid PT/OT: Pending Prognosis is guarded
[2020-09-08] MEDS: AZITHROMYCIN 500 MG TAB PO SCH (16:08)
[2020-09-08 16:58] LABS: Glucose,Whole Blood 118 mg/dL (75-99)
[2020-09-08 20:24] LABS: Glucose,Whole Blood 160 mg/dL (75-99)
[2020-09-08] MEDS: REPAGLINIDE 1 MG TAB PO SCH (20:42)
--- NOTE | 2020-09-08 22:19 | PN ---
PROGRESS NOTE DATE OF SERVICE: 09/08/2020 REASON FOR FOLLOWUP: Fever, concern for pneumonia. INTERVAL HISTORY: Patient overall fever pattern has improved. The patient has been feeling slightly better. She is breathing comfortably. Denies having any chest pain. Cough has slightly decreased intensity. No further sputum production. No abdominal pain. No diarrhea. PHYSICAL EXAMINATION: Blood pressure 144/78 with a pulse of 72, temperature 99. She is 94% on room air. General description is a middle-aged female up in the chair in no distress. Respiratory system: Unlabored breathing with decreased intensity of breath sounds. No wheeze. Heart S1, S2. Regular rate and rhythm. Abdomen soft, no tenderness. LABS: No new labs have been obtained today. Sputum cultures currently pending. Blood culture so far negative. DIAGNOSTIC IMPRESSION AND PLAN: Patient admitted to the hospital with fever with concern for pneumonia in this patient who did have multiple negative Covid tests. However, the CT has been suspicious more for any recurrent pneumonia. Urine for Legionella antigen came back negative. In view of overall response to the fever, to continue while waiting for the sputum culture to finalize. Continue supportive care thank condition. MMODL / IJN: [id number] /
[2020-09-09] MEDS: HEPARIN SODIUM,PORCINE 5,000 UNIT/ML 1 ML VIAL SQ SCH ×4 (00:05→22:45)
[2020-09-09 06:50] LABS: Basophils # (A) 0.1 k/uL (0-0.2); Basophils % (A) 1 %; Eosinophils # (A) 0.1 k/uL (0-0.7); Eosinophils % (A) 2 %; HCT 38.5 % (34.0-46.0); Lymphocytes # (A) 1.3 k/uL (1.0-4.8); Lymphocytes % (A) 29 %; MCH 27.7 pg (25.0-35.0); MCHC 33.9 g/dL (31.0-37.0); MCV 81.7 fL (80.0-100.0); Mean Platelet Volume 7.7; Monocytes # (A) 0.4 k/uL (0-1.0); Monocytes % (A) 8 %; Neutrophils # (A) 2.7 k/uL (1.3-7.7); Neutrophils % (A) 58 %; Platelet Count 236 k/uL (150-450); RBC 4.71 m/uL (3.80-5.40); RDW 13.4 % (11.5-15.5); WBC 4.6 k/uL (3.8-10.6)
[2020-09-09 06:52] LABS: Glucose,Whole Blood 116 mg/dL (75-99)
[2020-09-09] MEDS: INSULIN ASPART (NovoLOG) 100 UNIT/ML VIAL SQ SCH ×4 (09:05→21:50)
[2020-09-09] MEDS: CHOLECALCIFEROL 25 MCG (1000 IU) TABLET PO SCH (09:06)
[2020-09-09] MEDS: CYANOCOBALAMIN 500 MCG TAB PO SCH (09:06)
[2020-09-09] MEDS: amLODIPine 5 MG TAB PO SCH (09:06)
[2020-09-09] MEDS: ATORVASTATIN 10 MG TAB PO SCH (09:06)
[2020-09-09 10:45] LABS: C Reactive Protein 4.2 mg/dL (0.0-0.8)
[2020-09-09 10:55] LABS: Ferritin 378.1 ng/mL (10.0-291.0)
[2020-09-09 11:31] LABS: Glucose,Whole Blood 129 mg/dL (75-99)
--- NOTE | 2020-09-09 13:33 | P.PN ---
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 Viramontes, also she follows up with Dr. Girard for kidney disease Patient presents because of persistent fever for 2 weeks. Patient states 2 weeks ago she started running fever and she went to urgent care we checked her culprit twice and it was not detected then follow up with her PCP which is therefore influenza and it was negative as well. And he asked her to take some antipyretic and go back to work at work they advised him to go to the hospital. She feels little short of breath especially with walking with little cough. No chest pain. She has diarrhea like one set today which was loose compared to yesterday she did not have bowel movement she denies smoking, alcohol or illicit drugs. Patient is febrile at 103, she is saturating 95% on room air. CBC is unremarkable. INR is normal. BMP showed elevated creatinine 1.3, down to 1.1, sugar is controlled, liver enzymes not elevated, potassium 3.2, sodium is 134. Urinalysis is not suspicious for infection, influenza is negative, call bed is negative RSV is negative Chest x-ray from today correlate for pneumonia with patchy density appears more conspicuous in the right lung base. EKG showing normal sinus rhythm at [address]-T changes and emergency room she was started on ceftriaxone and Zithromax Infectious disease team were consulted 09/08/2020 Patient does not have respiratory or GI symptoms. However she feels generally weak and fatigued. She has a fever of 103 yesterday but no more fever since then. Her d-dimer is elevated 0.96. CT of the chest showing multifocal patchy peripheral and peribronchial vascular ground glass opacity upper and mid lungs and more compliant opacity in the right lower lobe. No pleural effusion. Suspected right margin pericardial cyst 2.6 x 1.3 cm and the recommended 6 months follow-up. Throatcalcific tone and is slightly elevated at 0.13. Creatinine stable at baseline 1.2 which is slightly elevated She remains on Zithromax and ceftriaxone currently 09/09/2020 patient feels better today, this week. Still no respiratory symptoms. No dyspnea or chest pain, no coughing. She is hemodynamically stable and she is saturating 97% on room air CBC is normal inflammatory markers trending down Sputum culture blood culture are pending with no growth so far. Patient remains on ceftriaxone and Zithromax per ID team recommendation Objective - Vital Signs Vital signs: Vital Signs Temp 97.9 F 09/09/20 10:00 Pulse 63 09/09/20 10:00 Resp 18 09/09/20 10:00 BP 118/71 09/09/20 10:00 Pulse Ox 97 09/09/20 10:00 Intake & Output 09/08/20 09/09/20 09/09/20 18:59 06:59 18:59 Intake Total 50 Balance 50 Intake: IV 50 cefTRIAXone 2 gm In 50 Sodium Chloride 0.9% 50 ml @ 100 mls/hr IVPB Q24HR [facility] Rx#:[id number] - Exam GENERAL: The patient is alert and oriented x3, not in any acute distress. Well developed, well nourished. HEENT: Pupils are round and equally reacting to light. EOMI. No scleral icterus. No conjunctival pallor. Normocephalic, atraumatic. No pharyngeal erythema. No thyromegaly. CARDIOVASCULAR: S1 and S2 present. No murmurs, rubs, or gallops. PULMONARY: Chest is clear to auscultation, no wheezing or crackles. ABDOMEN: Soft, nontender, nondistended, normoactive bowel sounds. No palpable organomegaly. MUSCULOSKELETAL: No joint swelling or deformity. EXTREMITIES: No cyanosis, clubbing, or pedal edema. NEUROLOGICAL: Gross neurological examination did not reveal any focal deficits. SKIN: No rashes. no petechiae. - Labs CBC & Chem 7: 09/09/20 06:38 09/07/20 19:09 Labs: Abnormal Lab Results - Last 24 Hours (Table) 09/08/20 09/08/20 09/09/20 Range/Units 16:55 20:22 06:38 D-Dimer (<0.60) mg/L FEU POC Glucose (mg/dL) 118 H 160 H (75-99) mg/dL Ferritin (10.0-291.0) ng/mL C-Reactive Protein (0.0-0.8) mg/dL Procalcitonin 0.10 H (0.02-0.09) ng/mL 09/09/20 09/09/20 09/09/20 Range/Units 06:38 06:38 06:49 D-Dimer 0.75 H (<0.60) mg/L FEU POC Glucose (mg/dL) 116 H (75-99) mg/dL Ferritin 378.1 H (10.0-291.0) ng/mL C-Reactive Protein 4.2 H (0.0-0.8) mg/dL Procalcitonin (0.02-0.09) ng/mL 09/09/20 Range/Units 11:29 D-Dimer (<0.60) mg/L FEU POC Glucose (mg/dL) 129 H (75-99) mg/dL Ferritin (10.0-291.0) ng/mL C-Reactive Protein (0.0-0.8) mg/dL Procalcitonin (0.02-0.09) ng/mL Microbiology - Last 24 Hours (Table) 09/08/20 11:36 Gram Stain - Preliminary Sputum Sputum Culture - Preliminary 09/06/20 14:04 Blood Culture - Preliminary Blood No Growth after 48 hours 09/06/20 14:04 Blood Culture - Preliminary Blood No Growth after 48 hours Assessment and Plan Assessment: community acquired right lower lobe pneumonia Chronic kidney disease stage III pericardial cyst 2.6 x 1.3 cm 2 diabetes mellitus Hypertension History of GERD Chacon granulomatosis Chronic kidney disease stage III Plan: this is a pleasant 65 years old female who presents with right lower lobe pneumonia, with fever. Continue with ceftriaxone and Zithromax. And monitor fever and respiratory function Incision in the urine, follow-up sputum culture and blood culture. Follow-up recommendation by infectious disease team Labs and medication were reviewed.. Continue same treatment. Continue with symptomatic treatment. Resume home medication. Monitor lytes and vitals. DVT and GI prophylaxis. Further recommendations depends on the clinical course of the patient DVT prophylaxis: Subcutaneous heparin GI Prophylaxis: Pepcid PT/OT: Pending Prognosis is guarded
[2020-09-09] MEDS: AZITHROMYCIN 500 MG TAB PO SCH (16:27)
[2020-09-09 16:43] LABS: Glucose,Whole Blood 147 mg/dL (75-99)
[2020-09-09 17:22] LABS: African American GFR (CKD) 68 (>60 ml/min/1.73 sqM); Anion Gap 4 mmol/L; Blood Urea Nitrogen 19 mg/dL (7-17); Calcium 9.6 mg/dL (8.4-10.2); Carbon Dioxide 28 mmol/L (22-30); Chloride 102 mmol/L (98-107); Glucose 151 mg/dL (74-99); Non-African American GFR(CKD) 59 (>60 ml/min/1.73 sqM); Potassium 3.9 mmol/L (3.5-5.1); Sodium 134 mmol/L (137-145)
--- NOTE | 2020-09-09 17:23 | PN ---
PROGRESS NOTE DATE OF SERVICE: 09/09/2020 REASON FOR FOLLOWUP: Pneumonia. INTERVAL HISTORY: The patient is currently afebrile. The patient is feeling better. She is breathing more comfortably. The patient denies having any chest pain or shortness of breath. She did have a cough with occasional sputum. No abdominal pain or diarrhea. PHYSICAL EXAMINATION: Blood pressure 109/69, pulse 59, temperature 99. She is 94% on room air. General description is a middle-aged female up in the bed in no distress. RESPIRATORY SYSTEM: Unlabored breathing with decreased intensity of breath sounds. No wheeze. HEART: S1, S2. Regular rate and rhythm. ABDOMEN: Soft. No tenderness. LABS: Hemoglobin is 13, white count 4.6. CRP is 4.2; it came down from a high of 63.9, procalcitonin down to 0.10 from 0.13. Sputum so far pending. DIAGNOSTIC IMPRESSION AND PLAN: Patient admitted to hospital with fever for 2 weeks concerning for pneumonia, possibly community-acquired. Patient is covered with Rocephin and Zithromax; to continue while monitoring clinical course closely. Continue with supportive care. MMODL / IJN: [id number] /
[2020-09-09 19:17] LABS: African American GFR (CKD) 55.3 (60.0-200.0); Anion Gap 21.2 mmol/L (4.00-12.00); BUN/Creat Ratio 14.17 Ratio (12.00-20.00); Calcium 8.9 mg/dL (8.7-10.3); Carbon Dioxide 17.8 mmol/L (21.6-31.8); Non-African American GFR(CKD) 47.7 (60.0-200.0); Potassium 4.3 mmol/L (3.5-5.5)
[2020-09-09 21:37] LABS: Glucose,Whole Blood 137 mg/dL (75-99)
[2020-09-09] MEDS: REPAGLINIDE 1 MG TAB PO SCH (21:49)
[2020-09-10 06:53] LABS: Glucose,Whole Blood 135 mg/dL (75-99)
[2020-09-10 07:27] LABS: HCT 36.2 % (34.0-46.0); HGB 12.4 gm/dL (11.4-16.0); MCH 28.1 pg (25.0-35.0); MCHC 34.1 g/dL (31.0-37.0); MCV 82.4 fL (80.0-100.0); Mean Platelet Volume 8.4; Platelet Count 225 k/uL (150-450); RDW 13.4 % (11.5-15.5); WBC 4.7 k/uL (3.8-10.6)
[2020-09-10] MEDS: INSULIN ASPART (NovoLOG) 100 UNIT/ML VIAL SQ SCH ×4 (07:57→20:17)
[2020-09-10] MEDS: CHOLECALCIFEROL 25 MCG (1000 IU) TABLET PO SCH (07:58)
[2020-09-10] MEDS: CYANOCOBALAMIN 500 MCG TAB PO SCH (07:59)
[2020-09-10] MEDS: amLODIPine 5 MG TAB PO SCH (07:59)
[2020-09-10] MEDS: HEPARIN SODIUM,PORCINE 5,000 UNIT/ML 1 ML VIAL SQ SCH ×3 (07:59→23:16)
[2020-09-10] MEDS: CALCIUM CARB-VIT D 500 MG-5 MCG TAB PO SCH (07:59)
[2020-09-10] MEDS: AZITHROMYCIN 500 MG TAB PO SCH (07:59)
[2020-09-10] MEDS: ATORVASTATIN 10 MG TAB PO SCH (07:59)
[2020-09-10 11:45] LABS: African American GFR (CKD) 68.9 (60.0-200.0); Anion Gap 7.5 mmol/L (4.00-12.00); Calcium 8.9 mg/dL (8.7-10.3); Carbon Dioxide 25.5 mmol/L (21.6-31.8); Non-African American GFR(CKD) 59.5 (60.0-200.0); Potassium 4.3 mmol/L (3.5-5.5)
[2020-09-10 11:52] LABS: Glucose,Whole Blood 131 mg/dL (75-99)
--- NOTE | 2020-09-10 12:11 | P.PN ---
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 Viramontes, also she follows up with Dr. Girard for kidney disease Patient presents because of persistent fever for 2 weeks. Patient states 2 weeks ago she started running fever and she went to urgent care we checked her culprit twice and it was not detected then follow up with her PCP which is therefore influenza and it was negative as well. And he asked her to take some antipyretic and go back to work at work they advised him to go to the hospital. She feels little short of breath especially with walking with little cough. No chest pain. She has diarrhea like one set today which was loose compared to yesterday she did not have bowel movement she denies smoking, alcohol or illicit drugs. Patient is febrile at 103, she is saturating 95% on room air. CBC is unremarkable. INR is normal. BMP showed elevated creatinine 1.3, down to 1.1, sugar is controlled, liver enzymes not elevated, potassium 3.2, sodium is 134. Urinalysis is not suspicious for infection, influenza is negative, call bed is negative RSV is negative Chest x-ray from today correlate for pneumonia with patchy density appears more conspicuous in the right lung base. EKG showing normal sinus rhythm at [address]-T changes and emergency room she was started on ceftriaxone and Zithromax Infectious disease team were consulted 09/08/2020 Patient does not have respiratory or GI symptoms. However she feels generally weak and fatigued. She has a fever of 103 yesterday but no more fever since then. Her d-dimer is elevated 0.96. CT of the chest showing multifocal patchy peripheral and peribronchial vascular ground glass opacity upper and mid lungs and more compliant opacity in the right lower lobe. No pleural effusion. Suspected right margin pericardial cyst 2.6 x 1.3 cm and the recommended 6 months follow-up. Throatcalcific tone and is slightly elevated at 0.13. Creatinine stable at baseline 1.2 which is slightly elevated She remains on Zithromax and ceftriaxone currently 09/09/2020 patient feels better today, this week. Still no respiratory symptoms. No dyspnea or chest pain, no coughing. She is hemodynamically stable and she is saturating 97% on room air CBC is normal inflammatory markers trending down Sputum culture blood culture are pending with no growth so far. Patient remains on ceftriaxone and Zithromax per ID team recommendation 09/10/2020 Patient still breathing comfortably. She is coughing more today. She is saturating 94% on room air. Rest of Vitas looks stable BMP and CBC are unremarkable today. Sputum culture negative. Blood culture are still pending Remains on ceftriaxone and Zithromax We will repeat chest x-ray today Objective - Vital Signs Vital signs: Vital Signs Temp 98.6 F 09/10/20 09:30 Pulse 61 09/10/20 09:30 Resp 18 09/10/20 09:30 BP 110/71 09/10/20 09:30 Pulse Ox 94 L 09/10/20 09:30 Intake & Output 09/09/20 09/10/20 09/10/20 18:59 06:59 18:59 Intake Total 50 250 Balance 50 250 Intake: Intake, IV Titration 50 Amount cefTRIAXone 2 gm In 50 Sodium Chloride 0.9% 50 ml @ 100 mls/hr IVPB Q24HR [facility] Rx#:[id number] Oral 250 Other: Voiding Method Toilet - Exam GENERAL: The patient is alert and oriented x3, not in any acute distress. Well developed, well nourished. HEENT: Pupils are round and equally reacting to light. EOMI. No scleral icterus. No conjunctival pallor. Normocephalic, atraumatic. No pharyngeal erythema. No thyromegaly. CARDIOVASCULAR: S1 and S2 present. No murmurs, rubs, or gallops. PULMONARY: Chest is clear to auscultation, no wheezing or crackles. ABDOMEN: Soft, nontender, nondistended, normoactive bowel sounds. No palpable organomegaly. MUSCULOSKELETAL: No joint swelling or deformity. EXTREMITIES: No cyanosis, clubbing, or pedal edema. NEUROLOGICAL: Gross neurological examination did not reveal any focal deficits. SKIN: No rashes. no petechiae. - Labs CBC & Chem 7: 09/10/20 06:41 09/10/20 06:41 Labs: Abnormal Lab Results - Last 24 Hours (Table) 09/09/20 09/09/20 09/09/20 Range/Units 06:38 16:41 16:46 Sodium 134 L (137-145) mmol/L Carbon Dioxide 17.8 L (21.6-31.8) mmol/L Anion Gap 21.20 H (4.00-12.00) mmol/L BUN 19 H (7-17) mg/dL Est GFR (CKD-EPI)AfAm 55.3 L (60.0-200.0) Est GFR (CKD-EPI)NonAf 47.7 L (60.0-200.0) Glucose 124 H 151 H (70-110) mg/dL POC Glucose (mg/dL) 147 H (75-99) mg/dL 09/09/20 09/10/20 09/10/20 Range/Units 21:36 06:41 06:50 Sodium (137-145) mmol/L Carbon Dioxide (21.6-31.8) mmol/L Anion Gap (4.00-12.00) mmol/L BUN (7-17) mg/dL Est GFR (CKD-EPI)AfAm (60.0-200.0) Est GFR (CKD-EPI)NonAf 59.5 L (60.0-200.0) Glucose 136 H (70-110) mg/dL POC Glucose (mg/dL) 137 H 135 H (75-99) mg/dL 09/10/20 Range/Units 11:50 Sodium (137-145) mmol/L Carbon Dioxide (21.6-31.8) mmol/L Anion Gap (4.00-12.00) mmol/L BUN (7-17) mg/dL Est GFR (CKD-EPI)AfAm (60.0-200.0) Est GFR (CKD-EPI)NonAf (60.0-200.0) Glucose (70-110) mg/dL POC Glucose (mg/dL) 131 H (75-99) mg/dL Microbiology - Last 24 Hours (Table) 09/08/20 11:36 Gram Stain - Final Sputum Sputum Culture - Final 09/06/20 14:04 Blood Culture - Preliminary Blood No Growth after 72 hours 09/06/20 14:04 Blood Culture - Preliminary Blood No Growth after 72 hours Assessment and Plan Assessment: community acquired right lower lobe pneumonia Chronic kidney disease stage III pericardial cyst 2.6 x 1.3 cm 2 diabetes mellitus Hypertension History of GERD Chacon granulomatosis Chronic kidney disease stage III Plan: this is a pleasant 65 years old female who presents with right lower lobe p neumonia, with fever. Continue with ceftriaxone and Zithromax. And monitor fever and respiratory function Incision in the urine, follow-up sputum culture and blood culture. Follow-up recommendation by infectious disease team Labs and medication were reviewed.. Continue same treatment. Continue with symptomatic treatment. Resume home medication. Monitor lytes and vitals. DVT and GI prophylaxis. Further recommendations depends on the clinical course of the patient DVT prophylaxis: Subcutaneous heparin GI Prophylaxis: Pepcid PT/OT: Pending Prognosis is guarded
--- NOTE | 2020-09-10 13:05 | XR ---
EXAMINATION TYPE: XR chest 1V DATE OF EXAM: 09/10/2020 COMPARISON: 09/07/2020 HISTORY: There is abnormal TECHNIQUE: Portable frontal chest FINDINGS: Heart size is normal. Pulmonary vasculature is normal. Previous right lower lobe infiltrate has resolved IMPRESSION: 1. No acute pulmonary process. 2. Resolution previous right lower lobe infiltrate
[2020-09-10 16:49] LABS: Glucose,Whole Blood 168 mg/dL (75-99)
--- NOTE | 2020-09-10 19:49 | PN ---
PROGRESS NOTE DATE OF SERVICE: 09/10/2020 REASON FOR FOLLOWUP: Pneumonia, community-acquired. INTERVAL HISTORY: Patient is currently afebrile. The patient is feeling better. She is breathing more comfortably. The patient did have a cough and bringing up more sputum. No chest pain. No abdominal pain. No diarrhea. PHYSICAL EXAMINATION: Blood pressure 116/68 with a pulse of 78, temperature 99.5. She is 94% on room air. General description: The patient is a middle-aged female up in the bed in no distress. Respiratory system: Unlabored breathing, decreased breath sounds at bases. No wheeze. Heart S1, S2. Regular rate and rhythm. Abdomen soft, no tenderness. LABS: Hemoglobin is 12.4, white count 4.7, BUN of 16, creatinine 1.0. DIAGNOSTIC IMPRESSION AND PLAN: Patient with right lower lobe pneumonia, source likely community-acquired. Chest x-ray did show improvement. The patient clinically improved on Rocephin and Zithromax. Plan to finish therapy with oral Ceftin. Questions and concerns were answered. MMMELLISSAL / IJN: [id number] /
[2020-09-10 20:16] LABS: Glucose,Whole Blood 129 mg/dL (75-99)
[2020-09-10] MEDS: REPAGLINIDE 1 MG TAB PO SCH (21:11)
[2020-09-10] MEDS: ACETAMINOPHEN TAB 325 MG TAB PO PRN (21:12)
[2020-09-11 07:12] LABS: Glucose,Whole Blood 126 mg/dL (75-99)
[2020-09-11] MEDS: INSULIN ASPART (NovoLOG) 100 UNIT/ML VIAL SQ SCH ×4 (07:34→21:14)
[2020-09-11] MEDS: AZITHROMYCIN 500 MG TAB PO SCH (08:24)
[2020-09-11] MEDS: ATORVASTATIN 10 MG TAB PO SCH (08:24)
[2020-09-11] MEDS: CYANOCOBALAMIN 500 MCG TAB PO SCH (08:24)
[2020-09-11] MEDS: HEPARIN SODIUM,PORCINE 5,000 UNIT/ML 1 ML VIAL SQ SCH ×3 (08:24→23:45)
[2020-09-11] MEDS: amLODIPine 5 MG TAB PO SCH (08:24)
[2020-09-11] MEDS: CHOLECALCIFEROL 25 MCG (1000 IU) TABLET PO SCH (08:25)
[2020-09-11 11:50] LABS: Glucose,Whole Blood 133 mg/dL (75-99)
--- NOTE | 2020-09-11 14:30 | P.PN ---
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 Viramontes, also she follows up with Dr. Girard for kidney disease Patient presents because of persistent fever for 2 weeks. Patient states 2 weeks ago she started running fever and she went to urgent care we checked her culprit twice and it was not detected then follow up with her PCP which is therefore influenza and it was negative as well. And he asked her to take some antipyretic and go back to work at work they advised him to go to the hospital. She feels little short of breath especially with walking with little cough. No chest pain. She has diarrhea like one set today which was loose compared to yesterday she did not have bowel movement she denies smoking, alcohol or illicit drugs. Patient is febrile at 103, she is saturating 95% on room air. CBC is unremarkable. INR is normal. BMP showed elevated creatinine 1.3, down to 1.1, sugar is controlled, liver enzymes not elevated, potassium 3.2, sodium is 134. Urinalysis is not suspicious for infection, influenza is negative, call bed is negative RSV is negative Chest x-ray from today correlate for pneumonia with patchy density appears more conspicuous in the right lung base. EKG showing normal sinus rhythm at [address]-T changes and emergency room she was started on ceftriaxone and Zithromax Infectious disease team were consulted 09/08/2020 Patient does not have respiratory or GI symptoms. However she feels generally weak and fatigued. She has a fever of 103 yesterday but no more fever since then. Her d-dimer is elevated 0.96. CT of the chest showing multifocal patchy peripheral and peribronchial vascular ground glass opacity upper and mid lungs and more compliant opacity in the right lower lobe. No pleural effusion. Suspected right margin pericardial cyst 2.6 x 1.3 cm and the recommended 6 months follow-up. Throatcalcific tone and is slightly elevated at 0.13. Creatinine stable at baseline 1.2 which is slightly elevated She remains on Zithromax and ceftriaxone currently 09/09/2020 patient feels better today, this week. Still no respiratory symptoms. No dyspnea or chest pain, no coughing. She is hemodynamically stable and she is saturating 97% on room air CBC is normal inflammatory markers trending down Sputum culture blood culture are pending with no growth so far. Patient remains on ceftriaxone and Zithromax per ID team recommendation 09/10/2020 Patient still breathing comfortably. She is coughing more today. She is saturating 94% on room air. Rest of Vitas looks stable BMP and CBC are unremarkable today. Sputum culture negative. Blood culture are still pending Remains on ceftriaxone and Zithromax We will repeat chest x-ray today 09/11/2020 Patient feels better, remained symptoms of generalized weakness and now she thinks she is 50% improved, no respiratory symptoms Repeat chest x-ray from yesterday showing almost resolution of that her pneumonia. However he still had fever yesterday at 100.2 so we will keep e her the hospital for now Remains on ceftriaxone and Zithromax and change to Ceftin upon discharge per ID team Objective - Vital Signs Vital signs: Vital Signs Temp 98.3 F 09/11/20 09:15 Pulse 59 L 09/11/20 09:15 Resp 18 09/11/20 09:15 BP 110/65 09/11/20 09:15 Pulse Ox 93 L 09/11/20 09:15 Intake & Output 09/10/20 09/11/20 09/11/20 18:59 06:59 18:59 Other: Voiding Method Toilet # Voids 2 2 # Bowel Movements 0 - Exam GENERAL: The patient is alert and oriented x3, not in any acute distress. Well developed, well nourished. HEENT: Pupils are round and equally reacting to light. EOMI. No scleral icterus. No conjunctival pallor. Normocephalic, atraumatic. No pharyngeal erythema. No thyromegaly. CARDIOVASCULAR: S1 and S2 present. No murmurs, rubs, or gallops. PULMONARY: Chest is clear to auscultation, no wheezing or crackles. ABDOMEN: Soft, nontender, nondistended, normoactive bowel sounds. No palpable organomegaly. MUSCULOSKELETAL: No joint swelling or deformity. EXTREMITIES: No cyanosis, clubbing, or pedal edema. NEUROLOGICAL: Gross neurological examination did not reveal any focal deficits. SKIN: No rashes. no petechiae. - Labs CBC & Chem 7: 09/10/20 06:41 09/10/20 06:41 Labs: Abnormal Lab Results - Last 24 Hours (Table) 09/10/20 09/10/20 09/11/20 Range/Units 16:47 20:15 07:09 POC Glucose (mg/dL) 168 H 129 H 126 H (75-99) mg/dL 09/11/20 Range/Units 11:47 POC Glucose (mg/dL) 133 H (75-99) mg/dL Microbiology - Last 24 Hours (Table) 09/06/20 14:04 Blood Culture - Preliminary Blood No Growth after 96 hours 09/06/20 14:04 Blood Culture - Preliminary Blood No Growth after 96 hours 09/08/20 11:36 Gram Stain - Final Sputum Sputum Culture - Final Assessment and Plan Assessment: community acquired right lower lobe pneumonia Chronic kidney disease stage III pericardial cyst 2.6 x 1.3 cm 2 diabetes mellitus Hypertension History of GERD Chacon granulomatosis Chronic kidney disease stage III Plan: this is a pleasant 65 years old female who presents with right lower lobe pneumonia, with fever. Continue with ceftriaxone and Zithromax. And monitor fever and respiratory function Incision in the urine, follow-up sputum culture and blood culture. Follow-up recommendation by infectious disease team Labs and medication were reviewed.. Continue same treatment. Continue with s ymptomatic treatment. Resume home medication. Monitor lytes and vitals. DVT and GI prophylaxis. Further recommendations depends on the clinical course of the patient DVT prophylaxis: Subcutaneous heparin GI Prophylaxis: Pepcid PT/OT: Pending Prognosis is guarded
[2020-09-11 17:09] LABS: Glucose,Whole Blood 146 mg/dL (75-99)
[2020-09-11] MEDS: LEVOFLOXACIN 750 MG TAB PO SCH (17:36)
--- NOTE | 2020-09-11 18:00 | PN ---
PROGRESS NOTE DATE OF SERVICE: 09/11/2020 REASON FOR FOLLOWUP: Pneumonia. INTERVAL HISTORY: Patient did have a low grade fever 100.5 to 100.1 last night. The patient is afebrile since then. The patient overall is feeling better. She is breathing comfortably. The patient mentioned that she is having a cough and is bringing up more sputum. The patient denies having any chest pain, shortness of breath. No cough. No abdominal pain and no diarrhea. PHYSICAL EXAMINATION: Blood pressure is 109/67, pulse of 52, temperature 99.2. She is 92% on room air. General description: The patient is a middle-aged female up in the bed in no distress. Respiratory system: Unlabored breathing with decreased breath sounds in the bases. No wheeze. HEART: S1, S2. Regular rate and rhythm. ABDOMEN: Soft, no tenderness. LABS: No new labs have been obtained today. DIAGNOSTIC IMPRESSION AND PLAN: Patient admitted to the hospital with fever, concerning for pneumonia. We will adjust antibiotic therapy to Levaquin 750 mg daily, which may be continued in the outpatient setting for another week to finish course of therapy if the patient remains to be afebrile and continue supportive care. MMODL / IJN: [id number] /
[2020-09-11 20:25] LABS: Glucose,Whole Blood 172 mg/dL (75-99)
[2020-09-11] MEDS: REPAGLINIDE 1 MG TAB PO SCH (21:15)
[2020-09-12 06:16] LABS: Basophils % (A) 1 %; Eosinophils # (A) 0.1 k/uL (0-0.7); Eosinophils % (A) 1 %; HCT 37.1 % (34.0-46.0); HGB 12.1 gm/dL (11.4-16.0); Lymphocytes # (A) 1.2 k/uL (1.0-4.8); Lymphocytes % (A) 21 %; MCH 26.8 pg (25.0-35.0); MCHC 32.7 g/dL (31.0-37.0); Mean Platelet Volume 8.1; Monocytes # (A) 0.5 k/uL (0-1.0); Monocytes % (A) 8 %; Neutrophils # (A) 3.5 k/uL (1.3-7.7); Neutrophils % (A) 64 %; Platelet Count 261 k/uL (150-450); RBC 4.52 m/uL (3.80-5.40); RDW 13.7 % (11.5-15.5); WBC 5.4 k/uL (3.8-10.6)
[2020-09-12 06:45] LABS: Glucose,Whole Blood 106 mg/dL (75-99)
[2020-09-12] MEDS: INSULIN ASPART (NovoLOG) 100 UNIT/ML VIAL SQ SCH ×2 (07:18→12:40)
[2020-09-12 07:19] VITALS: BP 108/70; PULSE 57; RESP 18; TEMP 97.6
[2020-09-12] MEDS: ATORVASTATIN 10 MG TAB PO SCH (08:33)
[2020-09-12] MEDS: CYANOCOBALAMIN 500 MCG TAB PO SCH (08:33)
[2020-09-12] MEDS: CHOLECALCIFEROL 25 MCG (1000 IU) TABLET PO SCH (08:33)
[2020-09-12] MEDS: amLODIPine 5 MG TAB PO SCH (08:34)
[2020-09-12] MEDS: LEVOFLOXACIN 750 MG TAB PO SCH (08:34)
[2020-09-12] MEDS: HEPARIN SODIUM,PORCINE 5,000 UNIT/ML 1 ML VIAL SQ SCH (08:36)
[2020-09-12 09:12] LABS: African American GFR (CKD) 68.9 (60.0-200.0); Anion Gap 7.9 mmol/L (4.00-12.00); C Reactive Protein 2.7 mg/dL (0.0-0.8); Carbon Dioxide 27.1 mmol/L (21.6-31.8); Non-African American GFR(CKD) 59.5 (60.0-200.0); Potassium 4.7 mmol/L (3.5-5.5)
[2020-09-12 11:44] LABS: Glucose,Whole Blood 166 mg/dL (75-99)
--- NOTE | 2020-09-12 14:05 | P.DS ---
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 Viramontes, also she follows up with Dr. Girard for kidney disease Patient presents because of persistent fever for 2 weeks. Patient states 2 weeks ago she started running fever and she went to urgent care we checked her culprit twice and it was not detected then follow up with her PCP which is therefore influenza and it was negative as well. And he asked her to take some antipyretic and go back to work at work they advised him to go to the hospital. She feels little short of breath especially with walking with little cough. No chest pain. She has diarrhea like one set today which was loose compared to yesterday she did not have bowel movement she denies smoking, alcohol or illicit drugs. Patient is febrile at 103, she is saturating 95% on room air. CBC is unremarkable. INR is normal. BMP showed elevated creatinine 1.3, down to 1.1, sugar is controlled, liver enzymes not elevated, potassium 3.2, sodium is 134. Urinalysis is not suspicious for infection, influenza is negative, call bed is negative RSV is negative Chest x-ray from today correlate for pneumonia with patchy density appears more conspicuous in the right lung base. EKG showing normal sinus rhythm at [address]-T changes and emergency room she was started on ceftriaxone and Zithromax Infectious disease team were consulted 09/08/2020 Patient does not have respiratory or GI symptoms. However she feels generally weak and fatigued. She has a fever of 103 yesterday but no more fever since then. Her d-dimer is elevated 0.96. CT of the chest showing multifocal patchy peripheral and peribronchial vascular ground glass opacity upper and mid lungs and more compliant opacity in the right lower lobe. No pleural effusion. Suspected right margin pericardial cyst 2.6 x 1.3 cm and the recommended 6 months follow-up. Throatcalcific tone and is slightly elevated at 0.13. Creatinine stable at baseline 1.2 which is slightly elevated She remains on Zithromax and ceftriaxone currently 09/09/2020 patient feels better today, this week. Still no respiratory symptoms. No dyspnea or chest pain, no coughing. She is hemodynamically stable and she is saturating 97% on room air CBC is normal inflammatory markers trending down Sputum culture blood culture are pending with no growth so far. Patient remains on ceftriaxone and Zithromax per ID team recommendation 09/10/2020 Patient still breathing comfortably. She is coughing more today. She is saturating 94% on room air. Rest of Vitas looks stable BMP and CBC are unremarkable today. Sputum culture negative. Blood culture are still pending Remains on ceftriaxone and Zithromax We will repeat chest x-ray today 09/12/2020 Patient is clinically doing well no overnight events patient doesn't have any fever will be discharged today - Exam GENERAL: The patient is alert and oriented x3, not in any acute distress. Well developed, well nourished. HEENT: Pupils are round and equally reacting to light. EOMI. No scleral icterus. No conjunctival pallor. Normocephalic, atraumatic. No pharyngeal erythema. No thyromegaly. CARDIOVASCULAR: S1 and S2 present. No murmurs, rubs, or gallops. PULMONARY: Chest is clear to auscultation, no wheezing or crackles. ABDOMEN: Soft, nontender, nondistended, normoactive bowel sounds. No palpable organomegaly. MUSCULOSKELETAL: No joint swelling or deformity. EXTREMITIES: No cyanosis, clubbing, or pedal edema. NEUROLOGICAL: Gross neurological examination did not reveal any focal deficits. SKIN: No rashes. no petechiae. community acquired right lower lobe pneumonia: Patient is afebrile clinically doing well will be discharged today on levofloxacin for 1 more week Chronic kidney disease stage III pericardial cyst 2.6 x 1.3 cm 2 diabetes mellitus Hypertension History of GERD Chacon granulomatosis Chronic kidney disease stage III Plan - Discharge Summary Discharge Rx Participant: No New Discharge Prescriptions: New Levofloxacin [Levaquin] 750 mg PO DAILY@1700 #7 tab Continue Liraglutide [Victoza 2-Ron] 1.8 mg SQ HS Losartan [Cozaar] 25 mg PO HS Atorvastatin [Lipitor] 10 mg PO DAILY Omeprazole 20 mg PO DAILY Empagliflozin [Jardiance] 25 mg PO DAILY Cyanocobalamin (Vitamin B-12) [Vitamin B-12] 2,500 mcg PO DAILY Vitamin D3(Unknown Dose) 1 tab PO DAILY Repaglinide [Prandin] 1.5 mg PO HS Repaglinide [Prandin] 1 mg PO DAILY Calcium Carbonate [Calcium] 1,200 mg PO MOWEFR Discontinued amLODIPine BESYLATE [Norvasc] 5 mg PO DAILY #30 tab hydroCHLOROthiazide [Hydrodiuril] 12.5 mg PO DAILY Discharge Medication List Liraglutide [Victoza 2-Ron] 1.8 mg SQ HS 09/17/17 [History] Atorvastatin [Lipitor] 10 mg PO DAILY 03/11/18 [History] Losartan [Cozaar] 25 mg PO HS 03/11/18 [History] Cyanocobalamin (Vitamin B-12) [Vitamin B-12] 2,500 mcg PO DAILY 07/26/20 [History] Empagliflozin [Jardiance] 25 mg PO DAILY 07/26/20 [History] Omeprazole 20 mg PO DAILY 07/26/20 [History] Calcium Carbonate [Calcium] 1,200 mg PO MOWEFR 09/06/20 [History] Repaglinide [Prandin] 1 mg PO DAILY 09/06/20 [History] Repaglinide [Prandin] 1.5 mg PO HS 09/06/20 [History] Vitamin D3(Unknown Dose) 1 tab PO DAILY 09/06/20 [History] Levofloxacin [Levaquin] 750 mg PO DAILY@1700 #7 tab 09/12/20 [Rx] Follow up Appointment(s)/Referral(s): Rex Viramontes DO [Primary Care Provider] - 3 Days Discharge Disposition: HOME SELF-CARE
--- NOTE | 2020-09-12 14:36 | PN ---
PROGRESS NOTE DATE OF SERVICE: 09/12/2020 REASON FOR FOLLOWUP: Pneumonia. INTERVAL HISTORY: The patient is currently afebrile. Patient is breathing comfortably. The patient denies having any chest pain. No shortness of breath. Occasional cough. No abdominal pain. No diarrhea. PHYSICAL EXAMINATION: Blood pressure 132/70 with a pulse of 87, temp 97.6, 95% on room air. General description is a middle-aged female up in the bed in no distress. Respiratory system: Unlabored breathing. Clear to auscultation. HEART: S1, S2. Regular rate and rhythm. Abdomen soft, no tenderness. LABS: Hemoglobin 12.5, white count 5.4, creatinine 1.0. CRP 2.7. DIAGNOSTIC IMPRESSION AND PLAN: Patient with right lower lobe pneumonia, likely community-acquired. Patient clinically responding to the Levaquin, finishing therapy with oral Levaquin 750 daily for about a week and close outpatient followup. MMODL / IJN: [id number] /
== END 2020-09-12 15:24 | disposition home or self-care (01) | DRG 194 ==
LOC: EC 12:35 → 4SSUR 16:42
PROVIDERS: ADMIT Hospitalist; ATTEND Hospitalist
DX: J18.9 Pneumonia, unspecified organism (principal); M31.30 Wegener's granulomatosis without renal involvement; Z68.41 Body mass index [BMI] 40.0-44.9, adult; I31.8 Other specified diseases of pericardium; E11.22 Type 2 diabetes mellitus with diabetic chronic kidney disease; I12.9 Hypertensive chronic kidney disease with stage 1 through stage 4 chronic kidney disease, or unspecified chronic kidney disease; M85.80 Other specified disorders of bone density and structure, unspecified site; N18.30 Chronic kidney disease, stage 3 unspecified; Z20.822 Contact with and (suspected) exposure to COVID-19; K21.9 Gastro-esophageal reflux disease without esophagitis; I83.90 Asymptomatic varicose veins of unspecified lower extremity; E66.9 Obesity, unspecified; Z79.84 Long term (current) use of oral hypoglycemic drugs; Z79.899 Other long term (current) drug therapy; Z82.49 Family history of ischemic heart disease and other diseases of the circulatory system; Z83.3 Family history of diabetes mellitus; Z87.891 Personal history of nicotine dependence; Z96.652 Presence of left artificial knee joint
CPT/HCPCS: 36415; 71045; 71046; 71250; 80048; 80053; 81003; 82728; 83605; 83615; 84132; 84145; 85025; 85027; 85379; 85610; 85730; 86140; 87040; 87070; 87205; 87449; 87636; 93005; 96361; 96365; 96367; 96376; 99285

== ENCOUNTER → 2020-09-20 | Outpatient (CLI) | payer BC ==
--- NOTE | 2020-09-20 14:41 | XR ---
EXAMINATION TYPE: XR chest 2V DATE OF EXAM: 09/20/2020 COMPARISON: Chest x-ray 09/10/2020, CT 09/08/2020 HISTORY: Bronchopneumonia TECHNIQUE: Frontal and lateral views of the chest are obtained. FINDINGS: There is no pleural effusion or pneumothorax seen. Some questionable density present with in the lingula is again noted. The cardiac silhouette size is within normal limits. The osseous str uctures are intact. IMPRESSION: There is improved aeration
[2020-09-21 14:47] LABS: C-ANCA <1:20 Titer (<1:20)
== END | disposition home or self-care (01) ==
LOC: LABWHC1 12:25
PROVIDERS: ATTEND Internal Medicine Rheumatology
DX: J18.0 Bronchopneumonia, unspecified organism (principal); M31.30 Wegener's granulomatosis without renal involvement; R05 Cough
CPT/HCPCS: 36415; 71046; 86255; 87327; 87449

== ENCOUNTER → 2020-09-20 | Outpatient (CLI) | payer BC ==
--- NOTE | 2020-09-21 10:00 | ECHOF ---
Referral Reason:I31.8, R06.02 Shortness of breath MEASUREMENTS -------- HEIGHT: 160.0 cm WEIGHT: 96.2 kg BP: RVIDd: 2.7 cm (< 3.3) IVSd: 1.3 cm (0.6 - 1.1) LVIDd: 4.8 cm (3.9 - 5.3) LVPWd: 1.2 cm (0.6 - 1.1) IVSs: 1.6 cm LVIDs: 3.0 cm LVPWs: 1.6 cm LA Diam: 3.3 cm (2.7 - 3.8) LAESV Index (A-L): 18.14 ml/m Ao Diam: 3.1 cm (2.0 - 3.7) AV Cusp: 1.7 cm (1.5 - 2.6) MV EXCURSION: 11.351 mm (> 18.000) MV EF SLOPE: 31 mm/s (70 - 150) EPSS: 0.9 cm MV E Brigido: 0.71 m/s MV DecT: 186 ms MV A Brigido: 0.91 m/s MV E/A Ratio: 0.78 AR PHT: 653 ms FINDINGS -------- Sinus rhythm. This was a technically adequate study. The left ventricular size is normal. There is mild concentric left ventricular hypertrophy. Overa ll left ventricular systolic function is normal with, an EF between 60 - 65 %. The right ventricle is normal in size. Normal LA size by volume 22+/-6 ml/m2. The right atrium is normal in size. Lipomatous Hypertrophy of the atrial septum is present There is mild aortic regurgitation. Mild mitral annular calcification present. The tricuspid valve appears structurally normal. Trace/mild (physiologic) pulmonic regurgitation. The aortic root size is normal. Normal inferior vena cava with normal inspiratory collapse consistent with estimated right atrial pre ssure of 5 mmHg. There is no pericardial effusion. CONCLUSIONS -------- 1. The left ventricular size is normal. 2. There is mild concentric left ventricular hypertrophy. 3. Overall left ventricular systolic function is normal with, an EF between 60 - 65 %. 4. Lipomatous Hypertrophy of the atrial septum is present 5. There is mild aortic regurgitation. 6. Mild mitral annular calcification present. 7. Trace/mild (physiologic) pulmonic regurgitation. 8. There is no pericardial effusion. AUTO BODY SHOP MANAGER: IRA Granados
== END | disposition home or self-care (01) ==
LOC: RADECHMAIN 13:11
PROVIDERS: ATTEND Family Medicine
DX: I35.1 Nonrheumatic aortic (valve) insufficiency (principal); I37.1 Nonrheumatic pulmonary valve insufficiency; I51.7 Cardiomegaly; I34.8 Other nonrheumatic mitral valve disorders
CPT/HCPCS: 93306

== ENCOUNTER → 2021-01-09 | Outpatient (CLI) | payer BC ==
[2021-01-09 13:00] LABS: Appearance,Urine Clear (Clear); Bilirubin,Urine Negative (Negative); Blood,Urine Negative (Negative); Color,Urine Colorless; Glucose,Urine (UA) 4+ (Negative); Ketones,Urine Negative (Negative); Leukocyte Esterase,Urine Negative (Negative); Nitrite,Urine Negative (Negative); Protein,Urine Negative (Negative); Specific Gravity,Urine 1.018 (1.001-1.035); Urobilinogen,Urine <2.0 mg/dL (<2.0)
[2021-01-09 13:24] LABS: Creatinine,Urine Random 24.5 mg/dL; Protein/Creatinine Ratio,Urine 0.449
[2021-01-09 19:16] LABS: Basophils # (A) 0.06 X 10*3/uL (0.00-0.10); Basophils % (A) 0.9 %; Eosinophils # (A) 0.24 X 10*3/uL (0.04-0.35); Eosinophils % (A) 3.5 %; HGB 14.1 g/dL (12.0-15.0); Lymphocytes # (A) 2.35 X 10*3/uL (0.90-5.00); Lymphocytes % (A) 34.6 %; MCH 27.9 pg (27.0-32.0); MCHC 32.8 g/dL (32.0-37.0); Mean Platelet Volume 11.8 fL (9.5-12.2); Monocytes # (A) 0.53 X 10*3/uL (0.20-1.00); Monocytes % (A) 7.8 %; Neutrophils % (A) 52.9 %; Platelet Count 190 X 10*3/uL (140-440); RBC 5.06 X 10*6/uL (4.10-5.20); RDW 13.4 % (11.5-14.5)
[2021-01-09 19:39] LABS: % Iron Saturation 22.43 (12.00-45.00); African American GFR (CKD) 42.2 (60.0-200.0); Albumin 4.4 g/dL (3.80-4.90); Anion Gap 6.3 mmol/L (4.00-12.00); BUN/Creat Ratio 15.33 Ratio (12.00-20.00); Calcium 9.5 mg/dL (8.7-10.3); Carbon Dioxide 30.7 mmol/L (21.6-31.8); Non-African American GFR(CKD) 36.4 (60.0-200.0); Potassium 3.2 mmol/L (3.5-5.5)
[2021-01-09 19:47] LABS: Ferritin 101.5 ng/mL (10.0-291.0)
[2021-01-10 14:39] LABS: C-ANCA <1:20 Titer (<1:20)
== END | disposition home or self-care (01) ==
LOC: LABWHC1 11:37
PROVIDERS: ATTEND Nurse Practitioner Family
DX: N18.30 Chronic kidney disease, stage 3 unspecified (principal); D64.9 Anemia, unspecified; N39.0 Urinary tract infection, site not specified; R80.9 Proteinuria, unspecified; J84.9 Interstitial pulmonary disease, unspecified; M31.30 Wegener's granulomatosis without renal involvement
CPT/HCPCS: 36415; 80048; 81003; 82040; 82570; 82728; 83540; 83550; 84156; 85025; 86255; 87327

== ENCOUNTER → 2021-01-13 | Outpatient (CLI) | payer BC | END | disposition home or self-care (01) | LOC: LABWHC1 07:48 | PROVIDERS: ATTEND Internal Medicine Nephrology | DX: N18.30 Chronic kidney disease, stage 3 unspecified (principal) | CPT/HCPCS: 36415; 84132 ==

== ENCOUNTER → 2021-01-26 | Outpatient (CLI) | payer BC ==
[2021-01-27 00:21] LABS: African American GFR (CKD) 42.2 (60.0-200.0); Albumin 4.1 g/dL (3.80-4.90); Albumin/Globulin Ratio 1.64 (1.60-3.17); Anion Gap 13.3 mmol/L (4.00-12.00); BUN/Creat Ratio 15.33 Ratio (12.00-20.00); Calcium 8.8 mg/dL (8.7-10.3); Carbon Dioxide 23.7 mmol/L (21.6-31.8); Globulin 2.5 g/dL (1.6-3.3); Non-African American GFR(CKD) 36.4 (60.0-200.0); Potassium 3.5 mmol/L (3.5-5.5); Total Bilirubin 0.5 mg/dL (0.3-1.2); Total Protein 6.6 g/dL (6.2-8.2)
[2021-01-27 01:44] LABS: Immunoglobulin E 2.79 IU/mL (0.00-114.00)
[2021-01-27 14:17] LABS: Immunoglobulin M 20.8 mg/dL (40.0-280.0)
== END | disposition home or self-care (01) ==
LOC: LABWHC1 13:38
PROVIDERS: ATTEND Internal Medicine Rheumatology
DX: R89.9 Unspecified abnormal finding in specimens from other organs, systems and tissues (principal)
CPT/HCPCS: 36415; 80053; 82784; 82785

== ENCOUNTER → 2021-02-09 | Outpatient (CLI) | payer BC ==
[2021-02-10 05:01] LABS: African American GFR (CKD) 50.2 (60.0-200.0); Anion Gap 11.4 mmol/L (4.00-12.00); BUN/Creat Ratio 15.38 Ratio (12.00-20.00); Carbon Dioxide 25.6 mmol/L (21.6-31.8); Non-African American GFR(CKD) 43.3 (60.0-200.0); Potassium 3.9 mmol/L (3.5-5.5)
== END | disposition home or self-care (01) ==
LOC: LABWHC1 15:42
PROVIDERS: ATTEND Nurse Practitioner Family
DX: N18.30 Chronic kidney disease, stage 3 unspecified (principal)
CPT/HCPCS: 36415; 80048

== ENCOUNTER → 2021-04-17 | Outpatient (CLI) | payer BC ==
[2021-04-17 16:29] LABS: Appearance,Urine Clear (Clear); Bilirubin,Urine Negative (Negative); Blood,Urine Negative (Negative); Color,Urine Light Yellow; Glucose,Urine (UA) Negative (Negative); Ketones,Urine Negative (Negative); Leukocyte Esterase,Urine Trace (Negative); Mucus,Urine Rare /hpf; Nitrite,Urine Negative (Negative); Protein,Urine Negative (Negative); RBC,Urine 1 /hpf (0-5); Specific Gravity,Urine 1.016 (1.001-1.035); Squamous Epithelial Cell,Urine 1 /hpf (0-4); Urobilinogen,Urine <2.0 mg/dL (<2.0); WBC,Urine 3 /hpf (0-5)
[2021-04-17 16:38] LABS: Creatinine,Urine Random 87.1 mg/dL
[2021-04-17 16:45] LABS: Protein/Creatinine Ratio,Urine 0.057
[2021-04-17 23:44] LABS: Basophils # (A) 0.07 X 10*3/uL (0.00-0.10); Basophils % (A) 0.9 %; Eosinophils # (A) 0.31 X 10*3/uL (0.04-0.35); Eosinophils % (A) 3.9 %; HGB 12.9 g/dL (12.0-15.0); Lymphocytes # (A) 3.24 X 10*3/uL (0.90-5.00); Lymphocytes % (A) 40.8 %; MCH 28.8 pg (27.0-32.0); MCHC 33.1 g/dL (32.0-37.0); MCV 87.1 fL (80.0-97.0); Mean Platelet Volume 11.6 fL (9.5-12.2); Monocytes # (A) 0.63 X 10*3/uL (0.20-1.00); Monocytes % (A) 7.9 %; Neutrophils # (A) 3.67 X 10*3/uL (1.80-7.70); Neutrophils % (A) 46.2 %; Platelet Count 220 X 10*3/uL (140-440); RBC 4.48 X 10*6/uL (4.10-5.20); RDW 13.6 % (11.5-14.5); WBC 7.94 X 10*3/uL (4.50-10.00)
[2021-04-18 04:46] LABS: % Iron Saturation 21.76 (12.00-45.00); African American GFR (CKD) 45.9 (60.0-200.0); Albumin 4.4 g/dL (3.80-4.90); Albumin/Globulin Ratio 2.1 (1.60-3.17); BUN/Creat Ratio 19.29 Ratio (12.00-20.00); Calcium 9.7 mg/dL (8.7-10.3); Globulin 2.1 g/dL (1.6-3.3); Magnesium 1.8 mg/dL (1.5-2.4); Non-African American GFR(CKD) 39.6 (60.0-200.0); Phosphorus 3.8 mg/dL (2.4-5.1); Potassium 4.1 mmol/L (3.5-5.5); Total Bilirubin 0.4 mg/dL (0.3-1.2); Total Protein 6.5 g/dL (6.2-8.2)
[2021-04-19 14:34] LABS: C-ANCA 1:20 Titer (<1:20)
== END | disposition home or self-care (01) ==
LOC: LABWHC1 15:51
PROVIDERS: ATTEND Internal Medicine Rheumatology
DX: N18.30 Chronic kidney disease, stage 3 unspecified (principal); N39.0 Urinary tract infection, site not specified; D64.9 Anemia, unspecified; R80.9 Proteinuria, unspecified; N25.81 Secondary hyperparathyroidism of renal origin; E55.9 Vitamin D deficiency, unspecified; M31.30 Wegener's granulomatosis without renal involvement
CPT/HCPCS: 36415; 80053; 81001; 82306; 82570; 82728; 83516; 83540; 83550; 83735; 83970; 84100; 84156; 85025; 86255

== ENCOUNTER → 2021-07-17 | Outpatient (CLI) | payer BC ==
[2021-07-17 17:19] LABS: Appearance,Urine Clear (Clear); Bilirubin,Urine Negative (Negative); Blood,Urine Negative (Negative); Color,Urine Yellow; Glucose,Urine (UA) Negative (Negative); Hyaline Casts,Urine 3 /lpf (0-2); Ketones,Urine Negative (Negative); Leukocyte Esterase,Urine Small (Negative); Nitrite,Urine Negative (Negative); PH, Urine 5.5 (5.0-8.0); Protein,Urine Negative (Negative); RBC,Urine 1 /hpf (0-5); Specific Gravity,Urine 1.022 (1.001-1.035); Squamous Epithelial Cell,Urine 5 /hpf (0-4); Urobilinogen,Urine <2.0 mg/dL (<2.0); WBC,Urine 3 /hpf (0-5)
[2021-07-17 18:34] LABS: Creatinine,Urine Random 155.8 mg/dL
[2021-07-17 23:17] LABS: Basophils # (A) 0.06 X 10*3/uL (0.00-0.10); Basophils % (A) 0.7 %; Eosinophils # (A) 0.37 X 10*3/uL (0.04-0.35); HCT 38.6 % (37.2-46.3); HGB 12.7 g/dL (12.0-15.0); Lymphocytes # (A) 4.11 X 10*3/uL (0.90-5.00); Lymphocytes % (A) 44.6 %; MCH 28.7 pg (27.0-32.0); MCHC 32.9 g/dL (32.0-37.0); MCV 87.1 fL (80.0-97.0); Mean Platelet Volume 11.8 fL (9.5-12.2); Monocytes # (A) 0.67 X 10*3/uL (0.20-1.00); Monocytes % (A) 7.3 %; Neutrophils # (A) 3.99 X 10*3/uL (1.80-7.70); Neutrophils % (A) 43.2 %; Platelet Count 280 X 10*3/uL (140-440); RBC 4.43 X 10*6/uL (4.10-5.20); RDW 13.2 % (11.5-14.5); WBC 9.22 X 10*3/uL (4.50-10.00)
[2021-07-18 01:38] LABS: % Iron Saturation 13.93 (12.00-45.00); African American GFR (CKD) 48.9 (60.0-200.0); Anion Gap 13.5 mmol/L (10.00-18.00); BUN/Creat Ratio 13.18 Ratio (12.00-20.00); Blood Urea Nitrogen 17.4 mg/dL (9.0-27.0); Carbon Dioxide 23.1 mmol/L (20.0-27.5); Non-African American GFR(CKD) 42.2 (60.0-200.0); Phosphorus 3.4 mg/dL (2.4-5.1)
== END | disposition home or self-care (01) ==
LOC: LABWHC1 15:53
PROVIDERS: ATTEND Nurse Practitioner Family
DX: E55.9 Vitamin D deficiency, unspecified (principal); E21.3 Hyperparathyroidism, unspecified; D64.9 Anemia, unspecified; N39.0 Urinary tract infection, site not specified; N18.30 Chronic kidney disease, stage 3 unspecified
CPT/HCPCS: 36415; 80048; 81001; 82306; 82570; 82728; 83540; 83550; 83970; 84100; 84156; 85025

== ENCOUNTER → 2021-12-08 | Outpatient (CLI) | payer BC, MEDICARE ==
[2021-12-08 15:35] LABS: Creatinine,Urine Random 97.3 mg/dL; Protein/Creatinine Ratio,Urine 0.092
[2021-12-08 19:36] LABS: HCT 39.9 % (37.2-46.3); HGB 12.9 g/dL (12.0-15.0); MCH 27.7 pg (27.0-32.0); MCHC 32.3 g/dL (32.0-37.0); MCV 85.8 fL (80.0-97.0); Mean Platelet Volume 11.9 fL (9.5-12.2); NRBC Per 100 WBC 0 /100 WBCS (0.0-0.0); Platelet Count 267 X 10*3/uL (140-440); RBC 4.65 X 10*6/uL (4.10-5.20); RDW 13.4 % (11.5-14.5); WBC 14.94 X 10*3/uL (4.50-10.00)
[2021-12-08 20:30] LABS: Basophils # (M) 0 X 10*3/uL (0.00-0.10); Eosinophils # (M) 0 X 10*3/uL (0.04-0.35); Lymphocytes # (M) 5.53 X 10*3/uL (0.90-5.00); Monocytes # (M) 0.45 X 10*3/uL (0.20-1.00); Neutrophils # (M) 8.96 X 10*3/uL (2.00-8.90); Neutrophils % (M) 60 %; RBC Morphology NORMAL
[2021-12-08 21:19] LABS: Appearance,Urine Cloudy (Clear); Bacteria,Urine None Seen /HPF (None Seen); Bilirubin,Urine Negative (Negative); Blood,Urine Trace (Negative); Color,Urine Yellow (Yellow); Ketones,Urine Negative (Negative); Nitrite,Urine Negative (Negative); PH, Urine 5.5 (5.0-8.0); Specific Gravity,Urine 1.018 (1.001-1.030); Urobilinogen,Urine 0.2 (0.2,1.0)
[2021-12-09 01:14] LABS: African American GFR (CKD) 45.2 (60.0-200.0); Albumin/Globulin Ratio 1.19 (1.60-3.17); Anion Gap 15.4 mmol/L (10.00-18.00); BUN/Creat Ratio 20.85 Ratio (12.00-20.00); Blood Urea Nitrogen 29.4 mg/dL (9.0-27.0); C Reactive Protein 0.6 mg/dL (0.00-0.80); Calcium 9.4 mg/dL (8.7-10.3); Carbon Dioxide 21.5 mmol/L (20.0-27.5); Globulin 3.4 g/dL (1.6-3.3); Potassium 3.6 mmol/L (3.5-5.5); Total Bilirubin 0.4 mg/dL (0.30-1.20); Total Protein 7.4 g/dL (6.2-8.2)
== END | disposition home or self-care (01) ==
LOC: LABWHC1 09:59
PROVIDERS: ATTEND Internal Medicine Rheumatology
DX: M31.30 Wegener's granulomatosis without renal involvement (principal)
CPT/HCPCS: 36415; 80053; 81001; 82570; 84156; 85025; 86140; 86255; 86480

== ENCOUNTER → 2022-01-10 | Outpatient (CLI) | payer MEDICARE, BC ==
[2022-01-10 13:55] LABS: Appearance,Urine Clear (Clear); Bilirubin,Urine Negative (Negative); Blood,Urine Small (Negative); Color,Urine Light Yellow; Glucose,Urine (UA) 1+ (Negative); Ketones,Urine Negative (Negative); Leukocyte Esterase,Urine Moderate (Negative); Nitrite,Urine Negative (Negative); PH, Urine 5.5 (5.0-8.0); Protein,Urine Negative (Negative); RBC,Urine 1 /hpf (0-5); Specific Gravity,Urine 1.012 (1.001-1.035); Squamous Epithelial Cell,Urine 2 /hpf (0-4); Urobilinogen,Urine <2.0 mg/dL (<2.0); WBC,Urine 1 /hpf (0-5)
[2022-01-10 14:18] LABS: Creatinine,Urine Random 59.2 mg/dL; Protein/Creatinine Ratio,Urine 0.169
[2022-01-10 14:59] LABS: % Iron Saturation 40.42 (12.00-45.00); BUN/Creat Ratio 17.31 Ratio (12.00-20.00)
[2022-01-10 15:00] LABS: African American GFR (CKD) 43.7 (60.0-200.0); Anion Gap 10.6 mmol/L (10.00-18.00); Blood Urea Nitrogen 25.1 mg/dL (9.0-27.0); Carbon Dioxide 26.1 mmol/L (20.0-27.5); Non-African American GFR(CKD) 37.7 (60.0-200.0); Phosphorus 2.5 mg/dL (2.4-5.1); Potassium 4.4 mmol/L (3.5-5.5)
[2022-01-10 15:02] LABS: Basophils # (A) 0.05 X 10*3/uL (0.00-0.10); Basophils % (A) 0.5 %; Eosinophils # (A) 0.08 X 10*3/uL (0.04-0.35); Eosinophils % (A) 0.9 %; HGB 12.7 g/dL (12.0-15.0); Lymphocytes # (A) 1.19 X 10*3/uL (0.90-5.00); Lymphocytes % (A) 12.7 %; MCH 27.7 pg (27.0-32.0); MCHC 31.8 g/dL (32.0-37.0); MCV 87.3 fL (80.0-97.0); Mean Platelet Volume 12.1 fL (9.5-12.2); Monocytes # (A) 0.64 X 10*3/uL (0.20-1.00); Monocytes % (A) 6.8 %; NRBC Per 100 WBC 0 /100 WBCS (0.0-0.0); Neutrophils # (A) 7.33 X 10*3/uL (1.80-7.70); Neutrophils % (A) 78.1 %; Platelet Count 209 X 10*3/uL (140-440); RBC 4.58 X 10*6/uL (4.10-5.20); RDW 14.4 % (11.5-14.5); WBC 9.38 X 10*3/uL (4.50-10.00)
== END | disposition home or self-care (01) ==
LOC: LABWHC1 09:59
PROVIDERS: ATTEND Nurse Practitioner Family
DX: N25.81 Secondary hyperparathyroidism of renal origin (principal); N39.0 Urinary tract infection, site not specified; D64.9 Anemia, unspecified; R80.9 Proteinuria, unspecified; E55.9 Vitamin D deficiency, unspecified; N18.30 Chronic kidney disease, stage 3 unspecified
CPT/HCPCS: 36415; 80048; 81001; 82306; 82570; 82728; 83540; 83550; 83970; 84100; 84156; 85025

== ENCOUNTER → 2022-04-03 | Outpatient (CLI) | payer MEDICARE, BC ==
[2022-04-03 11:33] VITALS: BP 161/79; PULSE 68; RESP 22; TEMP 98.9
--- NOTE | 2022-04-03 12:29 | P.HPOB ---
History of Present Illness H&P Date: 04/03/22 Chief Complaint: The patient is here for her routine gynecologic exam and ma mmogram. This is a 66-year-old with an LMP of 2003. The patient is without gynecologic complaints and denies any postmenopausal bleeding. Review of Systems The patient has gained 25 pounds over the last 2 years. She denies respiratory, cardiac, or G.I. problems. Past Medical History Past Medical History: Diabetes Mellitus, GERD/Reflux, Hypertension, Renal Disease Additional Past Medical History / Comment(s): Type 2 diabetes. WEGENERS GRANULOMATOSIS, VARICOSE VEINS. Osteopenia. 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 History of Any Multi-Drug Resistant Organisms: None Reported Past Surgical History: Ear Surgery, Heart Catheterization, Joint Replacement, Orthopedic Surgery, Tonsillectomy Additional Past Surgical History / Comment(s): d+c, colonoscopy 2015 (next after 5yr), bronchoscopy, rt mastoid , Right Knee arthroscopy (06/2015). Total Left Knee Replacement - January 2020 Past Anesthesia/Blood Transfusion Reactions: Postoperative Nausea & Vomiting (PONV) Additional Past Anesthesia/Blood Transfusion Reaction / Comment(s): POST-OP HEADACHE X1. Past Psychological History: No Psychological Hx Reported Smoking Status: Former smoker Past Alcohol Use History: Rare (3 per year) Additional Past Alcohol Use History / Comment(s): started smoking at age 17 quit by age 31. smoked 1ppd. Past Drug Use History: None Reported Additional History: She has been since 2018 and is sexually active. This is her second marriage and they have been together since 2003. She retired from [employer]. - Past Family History Brother(s) Family Medical History: Renal Disease Father Family Medical History: Cancer, Congestive Heart Failure (CHF), Diabetes Mellitus, Myocardial Infarction (MO) Additional Family Medical History / Comment(s): brain tumor Mother Family Medical History: Congestive Heart Failure (CHF), Coronary Artery Disease (CAD), Diabetes Mellitus, Deep Vein Thrombosis (DVT), Renal Disease Medications and Allergies Home Medications Medication Instructions Recorded Confirmed Type Liraglutide [Victoza 2-Ron] 1.8 mg SQ HS 09/17/17 04/03/22 History Atorvastatin [Lipitor] 10 mg PO DAILY 03/11/18 04/03/22 History Losartan [Cozaar] 25 mg PO HS 03/11/18 04/03/22 History Cyanocobalamin (Vitamin B-12) 2,500 mcg PO DAILY 07/26/20 04/03/22 History [Vitamin B-12] Omeprazole 20 mg PO DAILY 07/26/20 04/03/22 History Calcium Carbonate [Calcium] 1,200 mg PO MOWEFR 09/06/20 04/03/22 History Vitamin D3(Unknown Dose) 1 tab PO DAILY 09/06/20 04/03/22 History Insulin Aspart [NovoLOG] 8 unit INJ DIRECTED 12/20/21 04/03/22 History Insulin Degludec [Tresiba] 24 units INJ HS 12/20/21 04/03/22 History Sulfamethox-Tmp 800-160Mg [Bactrim 1 tab PO DIRECTED 12/20/21 04/03/22 History DS 800-160 mg] Glimepiride [Amaryl] 2 mg PO HS 04/03/22 04/03/22 History Allergies Allergy/AdvReac Type Severity Reaction Status Date / Time No Known Allergies Allergy Verified 04/03/22 11:29 Exam Vital Signs Temp Pulse Resp BP Pulse Ox 04/03/22 11:29 98.9 F 68 22 161/79 100 Intake and Output 04/02/22 04/03/22 04/03/22 22:59 06:59 14:59 Other: Weight 116.573 kg Height 5 feet 3 inches, weight 257 pounds, BMI 45.5. This is a well-developed well-nourished heavyset white female who is alert and oriented times 3 in no acute distress. HEENT: Within normal limits. NECK: Supple without mass or thyromegaly. CHEST AND LUNGS: Clear to auscultation. HEART: Regular rate and rhythm. BREASTS: Are without mass or discharge. AXILLARY EXAM: Negative for adenopathy. BACK: Negative for CVA tenderness. ABDOMEN: Soft, nontender, without palpable masses. PELVIC EXAM: Normal external genitalia with mild atrophy. Cervix and vagina appear normal with mild atrophy. There is no unusual discharge. There is no evidence of prolapse. The uterus is midposition, nongravid size and nontender. There are no palpable adnexal masses or tenderness. Bimanual examination is somewhat limited secondary to her size. RECTAL EXAM: Rectovaginal exam is negative for mass or tenderness and is negative for occult blood. EXTREMITIES: Nontender. IMPRESSION: 1. 66-year-old menopausal female with normal gynecologic exam. 2. History of osteopenia. PLAN: 1. Pap smear was deferred since she had a negative Pap smear cotest on 07/26/2020. She had a previous negative Pap smear in 2018. I will try to review her records to see if she has had another negative Pap smear within the past 10 years, and if so, we will discontinue Pap smears. If no prior Pap smears can be confirmed before 2017, we will plan on repeating one more Pap smear in approximately 2024. 2. Self breast awareness was discussed with the patient. We have also discussed symptoms associated with inflammatory breast cancer. 3. Screening mammogram will be done today. 4. She states she is scheduled for a colonoscopy next week. 5. Osteoporosis prevention was discussed. I have stressed the importance of adequate calcium, vitamin D and regular exercise. Recommended amounts of calcium and vitamin D were also discussed. We will plan on repeating bone density testing next year. 6. She was advised to return in one year for her annual well woman exam.
--- NOTE | 2022-04-04 08:33 | MM ---
Reason for Exam: Screening (asymptomatic). Last mammogram was performed 1 year(s) and 8 month(s) ago. Patient History: Menarche at age 13. First Full-Term at age 21. Postmenopausal. 08/28/2004, Attempted Procedure on the left side. Maternal grandmother had breast cancer, age 60. Risk Values: Tracey 5 year model risk: 1.5%. NCI Lifetime model risk: 5.6%. Prior Study Comparison: 03/11/2018 Bilateral Screening Mammogram, [facility]. 05/26/2019 Bilateral Screening Mammogram, [facility]. 07/26/2020 Bilateral Screening Mammogram, [facility]. Tissue Density: There are scattered fibroglandular densities. Findings: Analyzed By CAD. There is no suspicious group of microcalcifications or new suspicious mass in either breast. No significant change from prior exams. Overall Assessment: Negative, BI-RAD 1 Management: Screening Mammogram of both breasts in 1 year. A clinical breast exam by your physician is recommended on an annual basis and results should be correlated with mammographic findings. Electronically signed and approved by: Lew Dempesy D.O.
== END ==
LOC: WWCWWP 11:19
PROVIDERS: ATTEND Obstetrics & Gynecology
DX: Z12.31 Encounter for screening mammogram for malignant neoplasm of breast (principal); Z01.419 Encounter for gynecological examination (general) (routine) without abnormal findings; E11.9 Type 2 diabetes mellitus without complications; I10 Essential (primary) hypertension; Z87.891 Personal history of nicotine dependence; Z79.4 Long term (current) use of insulin; Z78.0 Asymptomatic menopausal state; Z87.39 Personal history of other diseases of the musculoskeletal system and connective tissue
CPT/HCPCS: 77063; 77067

== ENCOUNTER 2022-04-10 06:41 | Day surgery (SDC) | payer MEDICARE, BC ==
[2022-04-06 08:37] VITALS: BMI 42.9
[~2022-04-10 06:41] MED LIST changes: -ACETAMINOPHEN TAB 500 MG TAB PO NR; +LACTATED RINGERS 1,000 ML IV SCH; +LIDOCAINE 1% (10MG/ML) FOR IV START INTRADERMA PRN; -RITUXIMAB PVVR IV NR; -SODIUM CHLORIDE 0.9% 500 ML 500 ML in EMPTY BAG 1 BAG IV PRN; -SODIUM CHLORIDE 0.9% IV NR; -diphenhydrAMINE 50 MG/ML 1 ML VIAL IVP NR; -methylPREDNISolone SOD SUCCI 125 MG/2 ML VIAL IV NR
[2022-04-10 07:33] VITALS: TEMP 97
[2022-04-10 07:36] LABS: Glucose,Whole Blood 138 mg/dL (70-110)
[2022-04-10] MEDS ORDERED: PROPOFOL 10 MG/ML 20 ML VIAL IV ONE (08:08)
[2022-04-10] MEDS ORDERED: LIDOCAINE 2% INJ 20 MG/ML (2 ML VIAL) ONE (08:08)
--- NOTE | 2022-04-10 08:27 | P.PCN ---
Date of Procedure: 04/10/22 Procedure(s) Performed: BRIEF HISTORY: Patient is a 61-year-old pleasant 1 female scheduled for an elective colonoscopy as a part of evaluation of prior history of colon polyps. Last colonoscopy was 8 years ago. PROCEDURE PERFORMED: Colonoscopy. PREOPERATIVE DIAGNOSIS: History of colon polyps IV sedation per Anesthesia. PROCEDURE: After informed consent was obtained, the patient, was brought into the endoscopy unit. IV sedation was administered by Anesthesia under continuous monitoring. Digital rectal examination was normal. Initially the Olympus CF-160 flexible video colonoscope was then inserted in the rectum, gradually advanced into the cecum without any difficulty. Careful examination was performed as the scope was gradually being withdrawn. Ileocecal valve and the appendiceal orifice were visualized and appeared normal. Prep was excellent. Mucosa of the cecum, ascending colon, transverse colon, descending colon, sigmoid colon, and rectum appeared normal. Scattered sigmoid diverticulosis. Retroflexion was performed in the rectum and no lesions were seen. The patient tolerated the procedure well. IMPRESSION: Scattered sigmoid diverticulosis No evidence of colorectal neoplasia RECOMMENDATIONS: Findings of this examination were discussed with the patient as well as a family. She was advised to have a repeat screening colonoscopy in 10 years..
[2022-04-10 09:03] VITALS: BP 122/81; PULSE 69; RESP 18
== END 2022-04-10 09:28 | disposition home or self-care (01) ==
LOC: ORWHC2ENDO 06:41
PROVIDERS: ATTEND Internal Medicine Gastroenterology
DX: Z12.11 Encounter for screening for malignant neoplasm of colon (principal); Z86.010 Personal history of colon polyps; K57.30 Diverticulosis of large intestine without perforation or abscess without bleeding
CPT/HCPCS: G0105; J2704; J2001; 45378

== ENCOUNTER → 2022-07-03 | Outpatient (CLI) | payer MEDICARE, BC ==
[~2022-07-03] MED LIST changes: +ACETAMINOPHEN TAB 325 MG TAB PO ONE; -LACTATED RINGERS 1,000 ML IV SCH; -LIDOCAINE 1% (10MG/ML) FOR IV START INTRADERMA PRN; +RITUXIMAB ARRX IV NR; +SODIUM CHLORIDE 0.9% 500 ML 500 ML in EMPTY BAG 1 BAG IV PRN; +SODIUM CHLORIDE 0.9% IV NR; +diphenhydrAMINE 50 MG/ML 1 ML VIAL IVP ONE; +methylPREDNISolone SOD SUCCI 125 MG/2 ML VIAL IV ONE
[2022-07-03 09:56] VITALS: RESP 16; TEMP 98.3
[2022-07-03 11:47] VITALS: BP 144/86; PULSE 61
== END ==
LOC: PROCWHC3 09:18
PROVIDERS: ATTEND Internal Medicine Rheumatology
DX: M31.30 Wegener's granulomatosis without renal involvement (principal); Z87.891 Personal history of nicotine dependence
CPT/HCPCS: 96375; 96413; 96415; J1200; J2930; Q5123

== ENCOUNTER → 2022-07-23 | Outpatient (CLI) | payer MEDICARE, BC ==
[2022-07-23 15:22] LABS: African American GFR (CKD) 46.9 (60.0-200.0); Albumin 4.2 g/dL (3.8-4.9); Albumin/Globulin Ratio 1.91 (1.60-3.17); Anion Gap 13.7 mmol/L (10.00-18.00); BUN/Creat Ratio 13.53 Ratio (12.00-20.00); Blood Urea Nitrogen 18.4 mg/dL (9.0-27.0); Calcium 9.4 mg/dL (8.7-10.3); Carbon Dioxide 25.2 mmol/L (20.0-27.5); Globulin 2.2 g/dL (1.6-3.3); Non-African American GFR(CKD) 40.5 (60.0-200.0); Phosphorus 2.7 mg/dL (2.4-5.1); Potassium 4.2 mmol/L (3.5-5.5); Total Bilirubin 0.4 mg/dL (0.30-1.20); Total Protein 6.4 g/dL (6.2-8.2); Uric Acid 3.3 mg/dL (2.9-7.7)
[2022-07-23 15:27] LABS: Basophils # (A) 0.06 X 10*3/uL (0.00-0.10); Basophils % (A) 0.9 %; Eosinophils # (A) 0.23 X 10*3/uL (0.04-0.35); Eosinophils % (A) 3.5 %; HCT 39.9 % (37.2-46.3); Immature Grans, Automated 0.2 %; Lymphocytes # (A) 2.13 X 10*3/uL (0.90-5.00); Lymphocytes % (A) 32.4 %; MCH 28.6 pg (27.0-32.0); MCHC 32.6 g/dL (32.0-37.0); MCV 87.7 fL (80.0-97.0); Mean Platelet Volume 12.4 fL (9.5-12.2); Monocytes # (A) 0.67 X 10*3/uL (0.20-1.00); Monocytes % (A) 10.2 %; NRBC Per 100 WBC 0 /100 WBCS (0.0-0.0); Neutrophils # (A) 3.47 X 10*3/uL (1.80-7.70); Neutrophils % (A) 52.8 %; Platelet Count 193 X 10*3/uL (140-440); RBC 4.55 X 10*6/uL (4.10-5.20); RDW 13.3 % (11.5-14.5); WBC 6.57 X 10*3/uL (4.50-10.00)
[2022-07-23 15:45] LABS: Appearance,Urine Clear (Clear); Bilirubin,Urine Negative (Negative); Blood,Urine Negative (Negative); Color,Urine Yellow (Yellow); Ketones,Urine Negative (Negative); Nitrite,Urine Negative (Negative); PH, Urine 6.5 (5.0-8.0); Specific Gravity,Urine 1.007 (1.001-1.030); Urobilinogen,Urine 0.2 (0.2,1.0)
[2022-07-23 15:49] LABS: Bacteria,Urine None Seen /HPF (None Seen)
[2022-07-23 19:47] LABS: Immunoglobulin E 1.99 IU/mL (0.00-114.00)
[2022-07-23 21:51] LABS: Microalbumin Creatinine Ratio <30 mg/g Creat (0-30); Urine Creatinine 28.7 mg/dL (28.0-217.0)
[2022-07-24 21:00] LABS: Immunoglobulin M 14.5 mg/dL (40.0-280.0)
[2022-07-25 01:49] LABS: % Iron Saturation 21.36 (12.00-45.00)
== END | disposition home or self-care (01) ==
LOC: LABWHC1 10:09
PROVIDERS: ATTEND Internal Medicine Nephrology
DX: N25.81 Secondary hyperparathyroidism of renal origin (principal); N18.30 Chronic kidney disease, stage 3 unspecified; E55.9 Vitamin D deficiency, unspecified; M10.9 Gout, unspecified; N39.0 Urinary tract infection, site not specified; R80.9 Proteinuria, unspecified; M31.30 Wegener's granulomatosis without renal involvement; D63.1 Anemia in chronic kidney disease
CPT/HCPCS: 36415; 80053; 81001; 82043; 82306; 82570; 82728; 82784; 82785; 83540; 83550; 83735; 83970; 84100; 84550; 85025

== ENCOUNTER → 2022-11-10 | Outpatient (CLI) | payer MEDICARE, BC ==
[2022-11-10 16:26] LABS: Basophils # (A) 0.09 X 10*3/uL (0.00-0.10); Basophils % (A) 1.5 %; Eosinophils # (A) 0.27 X 10*3/uL (0.04-0.35); Eosinophils % (A) 4.4 %; HCT 42.6 % (37.2-46.3); HGB 13.5 g/dL (12.0-15.0); Immature Grans, Automated 0.3 %; Lymphocytes # (A) 2.13 X 10*3/uL (0.90-5.00); Lymphocytes % (A) 34.7 %; MCH 27.8 pg (27.0-32.0); MCHC 31.7 g/dL (32.0-37.0); MCV 87.8 fL (80.0-97.0); Monocytes # (A) 0.66 X 10*3/uL (0.20-1.00); Monocytes % (A) 10.8 %; NRBC Per 100 WBC 0 /100 WBCS (0.0-0.0); Neutrophils # (A) 2.96 X 10*3/uL (1.80-7.70); Neutrophils % (A) 48.3 %; Platelet Count 219 X 10*3/uL (140-440); RBC 4.85 X 10*6/uL (4.10-5.20); RDW 13.1 % (11.5-14.5); WBC 6.13 X 10*3/uL (4.50-10.00)
[2022-11-10 16:28] LABS: Appearance,Urine Clear (Clear); Bilirubin,Urine Negative (Negative); Blood,Urine Negative (Negative); Color,Urine Yellow (Yellow); Ketones,Urine Negative (Negative); Nitrite,Urine Negative (Negative); Urobilinogen,Urine 0.2 (0.2,1.0)
[2022-11-10 17:12] LABS: Bacteria,Urine None Seen /HPF (None Seen)
[2022-11-10 17:42] LABS: % Iron Saturation 16.66 (12.00-45.00); Anion Gap 15.7 mmol/L (10.00-18.00); BUN/Creat Ratio 16.97 Ratio (12.00-20.00); Blood Urea Nitrogen 25.8 mg/dL (9.0-27.0); Calcium 9.4 mg/dL (8.7-10.3); Carbon Dioxide 21.9 mmol/L (20.0-27.5); Magnesium 1.9 mg/dL (1.5-2.4); Non-African American GFR(CKD) 35.4 (60.0-200.0); Phosphorus 3.1 mg/dL (2.4-5.1); Potassium 4.1 mmol/L (3.5-5.5); Uric Acid 3.5 mg/dL (2.9-7.7)
[2022-11-10 18:04] LABS: Albumin 4.3 g/dL (3.8-4.9)
[2022-11-10 18:57] LABS: Microalbumin Creatinine Ratio <30 mg/g Creat (0-30)
== END | disposition home or self-care (01) ==
LOC: LABWHC1 08:24
PROVIDERS: ATTEND Nurse Practitioner Family
DX: N18.30 Chronic kidney disease, stage 3 unspecified (principal); D63.1 Anemia in chronic kidney disease; E55.9 Vitamin D deficiency, unspecified; N25.81 Secondary hyperparathyroidism of renal origin; M10.9 Gout, unspecified; N39.0 Urinary tract infection, site not specified
CPT/HCPCS: 36415; 80048; 81001; 82040; 82043; 82306; 82570; 82728; 83540; 83550; 83735; 83970; 84100; 84550; 85025

== ENCOUNTER → 2023-01-08 | Outpatient (CLI) | payer MEDICARE, BC ==
[~2023-01-08] MED LIST changes: +ACETAMINOPHEN TAB 325 MG TAB PO NR; -ACETAMINOPHEN TAB 325 MG TAB PO ONE; +SODIUM CHLORIDE 0.9% 250 ML IV NR; +diphenhydrAMINE 50 MG/ML 1 ML VIAL IVP NR; -diphenhydrAMINE 50 MG/ML 1 ML VIAL IVP ONE; -methylPREDNISolone SOD SUCCI 125 MG/2 ML VIAL IV ONE; +methylPREDNISolone SOD SUCCI 125 MG/2 ML VIAL IVP NR
[2023-01-08 09:12] VITALS: RESP 16; TEMP 97.9
[2023-01-08 10:58] VITALS: BP 126/71; PULSE 64
== END ==
LOC: PROCWHC3 08:36
PROVIDERS: ATTEND Internal Medicine Rheumatology
DX: M31.30 Wegener's granulomatosis without renal involvement (principal)
CPT/HCPCS: 96375; 96413; 96415; J1200; J2930; Q5123

== ENCOUNTER → 2023-02-05 | Outpatient (CLI) | payer MEDICARE, BC ==
[2023-02-05 10:43] LABS: Appearance,Urine Cloudy (Clear); Bilirubin,Urine Negative (Negative); Blood,Urine Negative (Negative); Color,Urine Yellow; Glucose,Urine (UA) Negative (Negative); Ketones,Urine Negative (Negative); Leukocyte Esterase,Urine Large (Negative); Mucus,Urine Rare /hpf; Nitrite,Urine Negative (Negative); Protein,Urine Negative (Negative); RBC,Urine 10 /hpf (0-5); Specific Gravity,Urine 1.018 (1.001-1.035); Squamous Epithelial Cell,Urine 9 /hpf (0-4); Urobilinogen,Urine <2.0 mg/dL (<2.0); WBC,Urine 67 /hpf (0-5)
[2023-02-05 20:08] LABS: Basophils # (A) 0.07 X 10*3/uL (0.00-0.10); Eosinophils # (A) 0.29 X 10*3/uL (0.04-0.35); Eosinophils % (A) 4.2 %; HCT 42.6 % (37.2-46.3); HGB 14.1 d/dL (12.0-15.0); Lymphocytes # (A) 2.22 X 10*3/uL (0.90-5.00); Lymphocytes % (A) 32.3 %; MCH 28.8 pg (27.0-32.0); MCHC 33.1 d/dL (32.0-37.0); MCV 87.1 FL (80.0-97.0); Mean Platelet Volume 12.5 FL (9.5-12.2); Monocytes # (A) 0.82 X 10*3/uL (0.20-1.00); Monocytes % (A) 11.9 %; NRBC Per 100 WBC 0 X 10*3/uL (0.00-0.01); Neutrophils # (A) 3.46 X 10*3/uL (1.80-7.70); Neutrophils % (A) 50.3 %; Platelet Count 208 X 10*3/uL (140-440); RBC 4.89 X 10*6/uL (4.10-5.20); RDW 13.6 % (11.5-14.5); WBC 6.88 X 10*3/uL (4.50-10.00)
[2023-02-06 05:21] LABS: % Iron Saturation 22.37 (12.00-45.00); ALT 37 U/L (8-44); AST 29 U/L (13-35); Albumin 4.5 d/dL (3.8-4.9); Albumin/Globulin Ratio 2.05 Ratio (1.60-3.17); Alkaline Phosphatase 101 U/L (41-126); Blood Urea Nitrogen 20.1 mg/dL (9.0-27.0); Calcium 9.7 mg/dL (8.7-10.3); Carbon Dioxide 24.9 mmol/L (21.6-31.8); Chloride 102 mmol/L (96-109); Globulin 2.2 d/dL (1.6-3.3); Glucose 142 mg/dL (70-110); Iron 68 UG/DL (50-170); Potassium 4.4 mmol/L (3.5-5.5); Sodium 140 mmol/L (135-145); Total Bilirubin 0.4 mg/dL (0.3-1.2); Total Iron Binding Capacity 304 UG/DL (228-460); Total Protein 6.7 d/dL (6.2-8.2); Uric Acid 3.2 mg/dL (2.9-7.7)
[2023-02-06 05:24] LABS: Immunoglobulin E <5.00 IU/mL (0.00-114.00); Immunoglobulin M <35.0 mg/dL (40.0-280.0)
== END | disposition home or self-care (01) ==
LOC: LABWHC1 08:59
PROVIDERS: ATTEND Internal Medicine Rheumatology
DX: N25.81 Secondary hyperparathyroidism of renal origin (principal); N18.30 Chronic kidney disease, stage 3 unspecified; D63.1 Anemia in chronic kidney disease; M31.30 Wegener's granulomatosis without renal involvement; E55.9 Vitamin D deficiency, unspecified; M10.9 Gout, unspecified; N39.0 Urinary tract infection, site not specified; R80.9 Proteinuria, unspecified
CPT/HCPCS: 36415; 80053; 81001; 82043; 82306; 82570; 82728; 82784; 82785; 83540; 83550; 83735; 83970; 84100; 84550; 85025

== ENCOUNTER → 2023-05-07 | Outpatient (CLI) | payer MEDICARE, BC ==
[2023-05-07 10:08] VITALS: BP 138/80; PULSE 62; RESP 16; TEMP 98.3
--- NOTE | 2023-05-07 10:40 | P.HPOB ---
History of Present Illness H&P Date: 05/07/23 Chief Complaint: The patient is here for her routine gynecologic exam and ma mmogram. This is a 67-year-old with an LMP of 2003. The patient is without gynecologic complaints and denies any postmenopausal bleeding. Review of Systems The patient has lost 6 pounds over the last year. She denies respiratory, cardiac, or G.I. problems. Past Medical History Past Medical History: Diabetes Mellitus, GERD/Reflux, Hypertension, Renal Disease Additional Past Medical History / Comment(s): Type 2 diabetes. WEGENERS GRANULOMATOSIS, VARICOSE VEINS. Osteopenia. 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 History of Any Multi-Drug Resistant Organisms: None Reported Past Surgical History: Ear Surgery, Heart Catheterization, Joint Replacement, Orthopedic Surgery, Tonsillectomy Additional Past Surgical History / Comment(s): d+c, colonoscopy 2021 (next after 10yr), bronchoscopy, rt mastoid , Right Knee arthroscopy (06/2015). Total Left Knee Replacement - January 2020 Past Anesthesia/Blood Transfusion Reactions: Postoperative Nausea & Vomiting (PONV) Additional Past Anesthesia/Blood Transfusion Reaction / Comment(s): POST-OP HEADACHE X1. Past Psychological History: No Psychological Hx Reported Smoking Status: Former smoker Past Alcohol Use History: Rare (6 drinks per year.) Additional Past Alcohol Use History / Comment(s): started smoking at age 17 quit by age 31. smoked 1ppd. Past Drug Use History: None Reported Additional History: She has been since 2018 and this is her second marri age. She is sexually active. She has been with her since 2003. She is retired. - Past Family History Brother(s) Family Medical History: Renal Disease Father Family Medical History: Cancer, Congestive Heart Failure (CHF), Diabetes Mellitus, Myocardial Infarction ([place]) Additional Family Medical History / Comment(s): brain tumor Mother Family Medical History: Congestive Heart Failure (CHF), Coronary Artery Disease (CAD), Diabetes Mellitus, Deep Vein Thrombosis (DVT), Renal Disease Medications and Allergies Home Medications Medication Instructions Recorded Confirmed Type Atorvastatin [Lipitor] 10 mg PO DAILY 03/11/18 05/07/23 History Losartan [Cozaar] 25 mg PO HS 03/11/18 05/07/23 History Cyanocobalamin (Vitamin B-12) 2,500 mcg PO DAILY 07/26/20 05/07/23 History [Vitamin B-12] Omeprazole 20 mg PO DAILY 07/26/20 05/07/23 History Calcium Carbonate [Calcium] 1,200 mg PO MOWEFR 09/06/20 05/07/23 History Vitamin D3(Unknown Dose) 1 tab PO DAILY 09/06/20 05/07/23 History Insulin Aspart [NovoLOG] 8 unit INJ DIRECTED 12/20/21 05/07/23 History Insulin Degludec [Tresiba] 24 units INJ HS 12/20/21 05/07/23 History Sulfamethox-Tmp 800-160Mg [Bactrim 1 tab PO MOWEFR 12/20/21 05/07/23 History DS 800-160 mg] Glimepiride [Amaryl] 2 mg PO HS 04/03/22 05/07/23 History Semaglutide [Ozempic] 1 mg INJ WEEKLY 05/07/23 05/07/23 History Allergies Allergy/AdvReac Type Severity Reaction Status Date / Time No Known Allergies Allergy Verified 05/07/23 10:02 Exam Vital Signs Temp Pulse Resp BP Pulse Ox 05/07/23 10:02 98.3 F 62 16 138/80 97 Intake and Output 05/06/23 05/07/23 05/07/23 22:59 06:59 14:59 Other: Weight 113.852 kg Height 5 feet 3 inches, weight 251 pounds, BMI 44.5. This is a well-developed well-nourished heavyset white female who is alert and oriented times 3 in no acute distress. HEENT: Within normal limits. NECK: Supple without mass or thyromegaly. CHEST AND LUNGS: Clear to auscultation. HEART: Regular rate and rhythm. BREASTS: Are without mass or discharge. AXILLARY EXAM: Negative for adenopathy. BACK: Negative for CVA tenderness. ABDOMEN: Soft, obese, nontender, without palpable masses. PELVIC EXAM: Normal external genitalia with mild atrophy. Cervix and vagina appear normal with mild atrophy. There is no unusual discharge. There is no evidence of prolapse. The uterus is midposition, nongravid size and nontender. There are no palpable adnexal masses or tenderness. Bimanual examination is somewhat limited secondary to her size. RECTAL EXAM: Rectovaginal exam is negative for mass or tenderness and is negative for occult blood. EXTREMITIES: Nontender. IMPRESSION: 1. 67-year-old menopausal female with normal gynecologic exam. 2. History of osteopenia 3. Obesity. PLAN: 1. Pap smears have been discontinued. 2. Self breast awareness was discussed with the patient. We have also discu ssed symptoms associated with inflammatory breast cancer. 3. Screening mammogram will be done today. 4. Osteoporosis prevention was discussed. I have stressed the importance of adequate calcium, vitamin D and regular exercise. Recommended amounts of calcium and vitamin D were also discussed. I recommended repeating her bone density test and the order slip was given to the patient for this. 5. She was advised to return in one year for her annual well woman exam.
--- NOTE | 2023-05-09 08:21 | MM ---
Reason for Exam: Screening (asymptomatic). Last mammogram was performed 1 year(s) and 1 month(s) ago. Patient History: Menarche at age 13. First Full-Term at age 21. Postmenopausal. 08/28/2004, Attempted Procedure on the left side. Maternal grandmother had breast cancer, age 60. Risk Values: Tracey 5 year model risk: 1.5%. NCI Lifetime model risk: 5.4%. Prior Study Comparison: 05/26/2019 Bilateral Screening Mammogram, [facility]. 07/26/2020 Bilateral Screening Mammogram, [facility]. 04/03/2022 Bilateral MG 3D screening mammo w/cad, [facility]. Tissue Density: There are scattered fibroglandular densities. Findings: Analyzed By CAD. There is no suspicious group of microcalcifications or new suspicious mass in either breast. Overall Assessment: Negative, BI-RAD 1 Management: Screening Mammogram of both breasts in 1 year. . Patient should continue monthly self-breast exams. A clinical breast exam by your physician is recommended on an annual basis. This exam should not preclude additional follow-up of suspicious palpable abnormalities. Note on Tracey scores and lifetime risk: 1. A Tracey score greater than 3% is considered moderate risk. If this is the case, consider specialist referral to assess eligibility for a risk reducing agent. 2. If overall lifetime risk for the development of breast cancer is 20% or higher, the patient may qualify for future screening with alternating mammogram and breast MRI. Electronically signed and approved by: Benoit Olson M.D. Radiologis
== END ==
LOC: WWCWWP 09:47
PROVIDERS: ATTEND Obstetrics & Gynecology
DX: Z01.419 Encounter for gynecological examination (general) (routine) without abnormal findings (principal); E66.9 Obesity, unspecified; E11.9 Type 2 diabetes mellitus without complications; I10 Essential (primary) hypertension; K21.9 Gastro-esophageal reflux disease without esophagitis; M85.80 Other specified disorders of bone density and structure, unspecified site; Z68.41 Body mass index [BMI] 40.0-44.9, adult; Z12.31 Encounter for screening mammogram for malignant neoplasm of breast; Z79.899 Other long term (current) drug therapy; Z79.4 Long term (current) use of insulin; Z87.891 Personal history of nicotine dependence; Z79.84 Long term (current) use of oral hypoglycemic drugs; Z78.0 Asymptomatic menopausal state
CPT/HCPCS: 77063; 77067

== ENCOUNTER → 2023-06-26 | Outpatient (CLI) | payer MEDICARE, BC ==
[2023-06-26 20:33] LABS: Basophils # (A) 0.07 X 10*3/uL (0.00-0.10); Eosinophils # (A) 0.24 X 10*3/uL (0.04-0.35); Eosinophils % (A) 3.3 %; HCT 42.1 % (37.2-46.3); HGB 13.7 g/dL (12.0-15.0); Lymphocytes # (A) 2.39 X 10*3/uL (0.90-5.00); Lymphocytes % (A) 33.1 %; MCH 28.5 pg (27.0-32.0); MCHC 32.5 g/dL (32.0-37.0); MCV 87.5 FL (80.0-97.0); Mean Platelet Volume 12.9 FL (9.5-12.2); Monocytes # (A) 0.52 X 10*3/uL (0.20-1.00); Monocytes % (A) 7.2 %; NRBC Per 100 WBC 0 X 10*3/uL (0.00-0.01); Neutrophils # (A) 3.96 X 10*3/uL (1.80-7.70); Platelet Count 191 X 10*3/uL (140-440); RBC 4.81 X 10*6/uL (4.10-5.20); RBC Morphology Normal (Normal); RDW 13.8 % (11.5-14.5); WBC 7.21 X 10*3/uL (4.50-10.00)
[2023-06-27 02:42] LABS: Immunoglobulin E <5.00 IU/mL (0.00-114.00)
[2023-06-27 02:51] LABS: % Iron Saturation 15.28 (12.00-45.00); Albumin 4.4 g/dL (3.8-4.9); BUN/Creat Ratio 14.47 Ratio (12.00-20.00); Blood Urea Nitrogen 21.7 mg/dL (9.0-27.0); Calcium 9.7 mg/dL (8.7-10.3); Carbon Dioxide 26.8 mmol/L (21.6-31.8); Chloride 101 mmol/L (96-109); Glucose 150 mg/dL (70-110); Iron 44 UG/DL (50-170); Magnesium 1.9 mg/dL (1.5-2.4); Phosphorus 2.8 mg/dL (2.4-5.1); Potassium 4.1 mmol/L (3.5-5.5); Sodium 140 mmol/L (135-145); Total Iron Binding Capacity 288 UG/DL (228-460); Uric Acid 3.2 mg/dL (2.9-7.7)
[2023-06-27 03:07] LABS: Immunoglobulin M <35.0 mg/dL (40.0-280.0)
== END | disposition home or self-care (01) ==
LOC: LABWHC1 12:14
PROVIDERS: ATTEND Internal Medicine Rheumatology
DX: E55.9 Vitamin D deficiency, unspecified (principal); N18.30 Chronic kidney disease, stage 3 unspecified; N25.81 Secondary hyperparathyroidism of renal origin; M10.9 Gout, unspecified; N39.0 Urinary tract infection, site not specified; M31.30 Wegener's granulomatosis without renal involvement; D63.1 Anemia in chronic kidney disease; R80.9 Proteinuria, unspecified
CPT/HCPCS: 36415; 80048; 82040; 82306; 82784; 82785; 83540; 83550; 83735; 83970; 84100; 84550; 85025

== ENCOUNTER → 2023-07-16 | Outpatient (CLI) | payer MEDICARE, BC ==
[~2023-07-16] MED LIST changes: -SODIUM CHLORIDE 0.9% 250 ML IV NR
[2023-07-16 08:30] VITALS: TEMP 98.1
[2023-07-16 10:02] VITALS: RESP 16
[2023-07-16 11:34] VITALS: PULSE 59
[2023-07-16 12:05] VITALS: BP 134/88
== END ==
LOC: PROCWHC3 08:01
PROVIDERS: ATTEND Internal Medicine Rheumatology
DX: M31.30 Wegener's granulomatosis without renal involvement (principal)
CPT/HCPCS: 96375; 96413; 96415; J1200; J2930; Q5123; 96365; 96366

== ENCOUNTER → 2024-01-30 | Outpatient (CLI) | payer MEDICARE, BC ==
[~2024-01-30] MED LIST changes: -ACETAMINOPHEN TAB 325 MG TAB PO NR; -RITUXIMAB ARRX IV NR; +SODIUM CHLORIDE 0.9% 250 ML IV NR; -SODIUM CHLORIDE 0.9% 500 ML 500 ML in EMPTY BAG 1 BAG IV PRN; -SODIUM CHLORIDE 0.9% IV NR; -diphenhydrAMINE 50 MG/ML 1 ML VIAL IVP NR; -methylPREDNISolone SOD SUCCI 125 MG/2 ML VIAL IVP NR
[2024-01-30 07:33] VITALS: RESP 16; TEMP 97.9
[2024-01-30] MEDS: SODIUM CHLORIDE 0.9% 500 ML 500 ML in EMPTY BAG 1 BAG IV PRN (07:39)
[2024-01-30] MEDS: ACETAMINOPHEN TAB 325 MG TAB PO NR (07:44)
[2024-01-30] MEDS: methylPREDNISolone SOD SUCCI 125 MG/2 ML VIAL IV NR (07:45)
[2024-01-30] MEDS: diphenhydrAMINE 50 MG/ML 1 ML VIAL IVP NR (07:45)
[2024-01-30] MEDS: SODIUM CHLORIDE 0.9% IV NR (07:55)
[2024-01-30] MEDS: RITUXIMAB ABBS IV NR (07:55)
[2024-01-30 08:46] VITALS: PULSE 60
[2024-01-30 09:14] VITALS: BP 114/71
== END ==
LOC: PROCWHC3 07:15
PROVIDERS: ATTEND Internal Medicine Rheumatology
DX: M31.30 Wegener's granulomatosis without renal involvement (principal)
CPT/HCPCS: 96375; 96413; 96415; J1200; J2919; Q5115

== ENCOUNTER → 2024-03-14 | Outpatient (CLI) | payer MEDICARE, BC ==
[2024-03-14 09:51] LABS: Creatinine,Urine Random 72.6 mg/dL; Protein/Creatinine Ratio,Urine 0.11
[2024-03-14 13:16] LABS: Basophils # (A) 0.08 X 10*3/uL (0.00-0.10); Basophils % (A) 1.4 %; Eosinophils # (A) 0.28 X 10*3/uL (0.04-0.35); Eosinophils % (A) 4.8 %; HCT 41.3 % (37.2-46.3); HGB 13.6 g/dL (12.0-15.0); Lymphocytes # (A) 1.88 X 10*3/uL (0.90-5.00); Lymphocytes % (A) 32.5 %; MCH 28.8 pg (27.0-32.0); MCHC 32.9 g/dL (32.0-37.0); MCV 87.3 FL (80.0-97.0); Mean Platelet Volume 12.5 FL (9.5-12.2); Monocytes # (A) 0.64 X 10*3/uL (0.20-1.00); Monocytes % (A) 11.1 %; NRBC Per 100 WBC 0 X 10*3/uL (0.00-0.01); Platelet Count 205 X 10*3/uL (140-440); RBC 4.73 X 10*6/uL (4.10-5.20); RDW 13.4 % (11.5-14.5); WBC 5.79 X 10*3/uL (4.50-10.00)
[2024-03-14 14:06] LABS: Appearance,Urine Clear (Clear); Bilirubin,Urine Negative (Negative); Blood,Urine Negative (Negative); Color,Urine Yellow (Yellow); Ketones,Urine Negative (Negative); Nitrite,Urine Negative (Negative); Specific Gravity,Urine 1.014 (1.001-1.030); Urobilinogen,Urine 0.2 E.U./DL
[2024-03-14 14:11] LABS: Bacteria,Urine None Seen (None Seen)
[2024-03-14 16:53] LABS: % Iron Saturation 14.44 (12.00-45.00); ALT 20 U/L (8-44); AST 21 U/L (13-35); Albumin 4.3 g/dL (3.8-4.9); Albumin/Globulin Ratio 1.95 Ratio (1.60-3.17); Alkaline Phosphatase 95 U/L (41-126); BUN/Creat Ratio 11.31 Ratio (12.00-20.00); Blood Urea Nitrogen 18.1 mg/dL (9.0-27.0); Calcium 9.3 mg/dL (8.7-10.3); Carbon Dioxide 24.6 mmol/L (21.6-31.8); Chloride 102 mmol/L (96-109); Ferritin 93.4 ng/mL (10.0-291.0); Globulin 2.2 g/dL (1.6-3.3); Glucose 168 mg/dL (70-110); Iron 40 UG/DL (50-170); Magnesium 1.8 mg/dL (1.5-2.4); Phosphorus 3.8 mg/dL (2.4-5.1); Potassium 4.5 mmol/L (3.5-5.5); Sodium 139 mmol/L (135-145); Total Bilirubin 0.2 mg/dL (0.3-1.2); Total Iron Binding Capacity 277 UG/DL (228-460); Total Protein 6.5 g/dL (6.2-8.2); Uric Acid 2.8 mg/dL (2.9-7.7)
[2024-03-14 18:42] LABS: Microalbumin Creatinine Ratio <15 mg/g Cr (0-30); Urine Creatinine 82.3 mg/dL (28.0-217.0)
== END | disposition home or self-care (01) ==
LOC: LABWHC1 08:06
PROVIDERS: ATTEND Internal Medicine Nephrology
DX: E55.9 Vitamin D deficiency, unspecified (principal); M31.30 Wegener's granulomatosis without renal involvement; N18.30 Chronic kidney disease, stage 3 unspecified; D63.1 Anemia in chronic kidney disease; N25.81 Secondary hyperparathyroidism of renal origin; M10.9 Gout, unspecified; N39.0 Urinary tract infection, site not specified; R80.9 Proteinuria, unspecified
CPT/HCPCS: 36415; 80053; 81001; 82043; 82306; 82570; 82728; 83540; 83550; 83735; 83970; 84100; 84156; 84550; 85025

== ENCOUNTER → 2024-05-12 | Outpatient (CLI) | payer MEDICARE, BC ==
[2024-05-12 16:31] VITALS: BP 125/81; PULSE 63; RESP 16; TEMP 97.9
--- NOTE | 2024-05-12 16:57 | P.HPOB ---
History of Present Illness H&P Date: 05/12/24 Chief Complaint: The patient is here for her routine gynecologic exam and ma mmogram. This is a 68-year-old G2, P2 with an LMP of 2003. The patient is without gynecologic complaints and denies any postmenopausal bleeding. Review of Systems The patient has lost 10 pounds over the last year. She denies respiratory, cardiac, or G.I. problems. Past Medical History Past Medical History: Diabetes Mellitus, GERD/Reflux, Hypertension, Renal Disease Additional Past Medical History / Comment(s): Type 2 diabetes. WEGENERS GRANULOMATOSIS, VARICOSE VEINS. Osteopenia. 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 History of Any Multi-Drug Resistant Organisms: None Reported Past Surgical History: Ear Surgery, Heart Catheterization, Joint Replacement, Orthopedic Surgery, Tonsillectomy Additional Past Surgical History / Comment(s): d+c, colonoscopy 2021 (next after 10yr), bronchoscopy, rt mastoid , Right Knee arthroscopy (06/2015). Total Left Knee Replacement - January 2020 Past Anesthesia/Blood Transfusion Reactions: Postoperative Nausea & Vomiting (PONV) Additional Past Anesthesia/Blood Transfusion Reaction / Comment(s): POST-OP HEADACHE X1. Past Psychological History: No Psychological Hx Reported Smoking Status: Former smoker Past Alcohol Use History: Rare (2 drinks per year.) Additional Past Alcohol Use History / Comment(s): started smoking at age 17 quit by age 31. smoked 1ppd. Past Drug Use History: None Reported Additional History: She is a since early 2023. This was her second ryan sandhya. She is retired. - Past Family History Brother(s) Family Medical History: Renal Disease Father Family Medical History: Cancer, Congestive Heart Failure (CHF), Diabetes Mellitus, Myocardial Infarction ([place]) Additional Family Medical History / Comment(s): brain tumor Mother Family Medical History: Congestive Heart Failure (CHF), Coronary Artery Disease (CAD), Diabetes Mellitus, Deep Vein Thrombosis (DVT), Renal Disease Medications and Allergies Home Medications Medication Instructions Recorded Confirmed Type Atorvastatin [Lipitor] 10 mg PO DAILY 03/11/18 05/12/24 History Losartan [Cozaar] 25 mg PO HS 03/11/18 05/12/24 History Cyanocobalamin (Vitamin B-12) 2,500 mcg PO DAILY 07/26/20 05/12/24 History [Vitamin B-12] Omeprazole 20 mg PO DAILY 07/26/20 05/12/24 History Calcium Carbonate [Calcium] 1,200 mg PO MOWEFR 09/06/20 05/12/24 History Vitamin D3(Unknown Dose) 1 tab PO DAILY 09/06/20 05/12/24 History Insulin Aspart [NovoLOG] 8 unit INJ DIRECTED 12/20/21 05/12/24 History Insulin Degludec [Tresiba] 24 units INJ HS 12/20/21 05/12/24 History Sulfamethox-Tmp 800-160Mg [Bactrim 1 tab PO MOWEFR 12/20/21 05/12/24 History DS 800-160 mg] Glimepiride [Amaryl] 2 mg PO HS 04/03/22 05/12/24 History Semaglutide [Ozempic] 1 mg INJ WEEKLY 05/07/23 05/12/24 History Allergies Allergy/AdvReac Type Severity Reaction Status Date / Time No Known Allergies Allergy Verified 05/12/24 16:27 Exam Vital Signs Temp Pulse Resp BP Pulse Ox 05/12/24 16:28 97.9 F 63 16 125/81 99 Intake and Output 05/12/24 05/12/24 05/12/24 06:59 14:59 22:59 Other: Weight 109.316 kg Height 5 feet 3 inches, weight 241 pounds, BMI 42.7. This is a well-developed well-nourished heavyset white female who is alert and oriented times 3 in no acute distress. HEENT: Within normal limits. NECK: Supple without mass or thyromegaly. CHEST AND LUNGS: Clear to auscultation. HEART: Regular rate and rhythm. BREASTS: Are without mass or discharge. AXILLARY EXAM: Negative for adenopathy. BACK: Negative for CVA tenderness. ABDOMEN: Soft, obese, nontender, without palpable masses. PELVIC EXAM: Normal external genitalia with mild atrophy. Cervix and vagina appear normal with mild atrophy. There is no unusual discharge. There is no evidence of prolapse. The uterus is midposition, nongravid size and nontender. There are no palpable adnexal masses or tenderness. Bimanual examination is somewhat limited secondary to her size. RECTAL EXAM: Rectovaginal exam is negative for mass or tenderness and is negative for occult blood. EXTREMITIES: Nontender. IMPRESSION: 1. 68-year-old menopausal female with normal gynecologic exam. 2. History of osteopenia PLAN: 1. Pap smears have been discontinued. 2. Self breast awareness was discussed with the patient. We have also discussed symptoms associated with inflammatory breast cancer. 3. Screening mammogram was done today. 4. Osteoporosis prevention was discussed. I have stressed the importance of adequate calcium, vitamin D and regular exercise. Recommended amounts of calcium and vitamin D were also discussed. We will plan on repeating the bone density test in 1 to 2 years. Her last 1 was just under 1 year ago. 5. She was advised to return in one year for her annual well woman exam.
== END ==
LOC: WWCWWP 15:54
PROVIDERS: ATTEND Obstetrics & Gynecology
DX: Z12.31 Encounter for screening mammogram for malignant neoplasm of breast (principal); M85.80 Other specified disorders of bone density and structure, unspecified site; Z87.891 Personal history of nicotine dependence; Z78.0 Asymptomatic menopausal state

== ENCOUNTER → 2024-07-31 | Outpatient (CLI) | payer MEDICARE, BC ==
[~2024-07-31] MED LIST changes: -SODIUM CHLORIDE 0.9% 250 ML IV NR; +SODIUM CHLORIDE 0.9% 250 ML in EMPTY BAG 1 BAG IV PRN
[2024-07-31 07:35] VITALS: RESP 16; TEMP 97.7
[2024-07-31] MEDS: SODIUM CHLORIDE 0.9% 500 ML 500 ML in EMPTY BAG 1 BAG IV PRN (07:37)
[2024-07-31] MEDS: diphenhydrAMINE 50 MG/ML 1 ML VIAL IVP ONE (07:38)
[2024-07-31] MEDS: ACETAMINOPHEN TAB 325 MG TAB PO ONE (07:39)
[2024-07-31] MEDS: methylPREDNISolone SOD SUCCI 125 MG/2 ML VIAL IV ONE (07:39)
[2024-07-31] MEDS: SODIUM CHLORIDE 0.9% IV NR (08:06)
[2024-07-31] MEDS: RITUXIMAB ABBS IV NR (08:06)
[2024-07-31 09:36] VITALS: BP 125/70; PULSE 59
== END ==
LOC: PROCWHC3 07:20
PROVIDERS: ATTEND Internal Medicine Rheumatology
DX: M31.30 Wegener's granulomatosis without renal involvement (principal)
CPT/HCPCS: 96375; 96413; 96415; J1200; J2919; Q5115; 96365; 96366

== ENCOUNTER → 2024-08-03 | Outpatient (CLI) | payer MEDICARE, BC ==
--- NOTE | 2024-08-03 11:10 | US ---
EXAMINATION TYPE: US kidneys/renal and bladder DATE OF EXAM: 08/03/2024 COMPARISON: NONE CLINICAL INDICATION: Female, 69 years old with history of N18.30 CHRONIC KIDNEY DISEASE, STAGE 3 UNSP ECIFIED; CKD TECHNIQUE: Grayscale imaging of the bilateral kidneys and urinary bladder: FINDINGS: EXAM MEASUREMENTS: Right Kidney: 10.5x4.0x4.6 cm Left Kidney: 11.7x4.5x6.0 cm Post Void Residual Volume: 25 mL Right Kidney: wnl, no evidence for hydronephrosis, mass or renal calculus. Left Kidney: wnl, no evidence for hydronephrosis, mass or renal calculus. Bladder: wnl Bilateral Jets seen: Yes Normal Post Void Residual: Yes There is no evidence for hydronephrosis at this point in time. No nephrolithiasis is seen. No maxwell s are identified. The urinary bladder is anechoic. exam limited by habitus IMPRESSION: No evidence for acute process. [facility], , 08/03/2024 11:07 AM
== END | disposition home or self-care (01) ==
LOC: RADUSWWP 10:18
PROVIDERS: ATTEND Internal Medicine Nephrology
DX: N18.30 Chronic kidney disease, stage 3 unspecified (principal)
CPT/HCPCS: 76770